=== PATIENT | female | born 1950 | race Caucasian/White ===

== ENCOUNTER 2017-07-08 09:52 | Emergency (ER) | payer MEDICARE, BC ==
[2017-07-08] MEDS ORDERED: Ondansetron HCl/PF 4 MG/2 ML Vial ONE (10:16)
[2017-07-08] MEDS ORDERED: Morphine 4 MG/ML VIAL ONE ×2 (10:35→12:27)
[2017-07-08 10:41] LABS: #Lymphocytes 2.2 thou/uL (1.20-3.40); #Neutrophils 11.4 thou/uL (1.40-6.50); %Basophils 0.2 % (0.0-1.0); %Eosinophils 0.2 % (0.0-10.0); %Lymphocytes 14.9 % (21.0-51.0); %Monocytes 6.7 % (0.0-10.0); Hematocrit 41.7 % (36.0-47.0); Mean Platelet Volume 7.4 fL (7.4-10.4); Red Blood Cell (RBC) Count 4.87 mill/uL (4.20-5.40); White Blood Cell (WBC) Count 14.7 thou/uL (4.8-10.8)
[2017-07-08 10:55] LABS: ALT (SGPT) 11 U/L (8-55); AST (SGOT) 13 U/L (5-34); Alkaline Phosphatase 140 U/L (40-150); Anion Gap 12 mmol/L (10-20); BUN (Urea Nitrogen) 19 mg/dL (9.8-20.1); Bilirubin, Total 0.6 mg/dL (0.2-1.2); Calc. Creatinine Clearance 0 mL/min (70-130); Calcium 8.4 mg/dL (7.8-10.44); Carbon Dioxide 19 mmol/L (23-31); Chloride 115 mmol/L (98-107); Estimated GFR-MDRD 40; Globulin 2.9 g/dL (2.4-3.5); Protein, Total 5.8 g/dL (6.0-8.3)
[2017-07-08] MEDS ORDERED: Ketorolac Tromethamine 30 MG/ML VIAL ONE (11:09)
[2017-07-08 11:58] LABS: Bilirubin Negative (Negative); Blood, Urine Small (Negative); Glucose, Urine (Dipstick) Negative (Negative); Ketone, Urine Trace mg/dL (Negative); Nitrite Positive (Negative); Protein, Urine (Dipstick) 30 mg/dL (Neg-Trace); Urobilinogen 0.2 mg/dL (0.2-1.0)
[2017-07-08 12:01] LABS: Bacteria/HPF 4+ HPF (None Seen); Squamous Epithelial None Seen HPF (0-3)
[2017-07-08 12:11] LABS: Hyaline Casts/LPF 4-6 HYALINE CAST LPF (0-3 Hyaline)
--- NOTE | 2017-07-08 12:41 | CT ---
CT ABDOMEN WITH CONTRAST CT PELVIS WITH CONTRAST: DATE: 07/08/17. HISTORY: A 67-year-old female with nausea, emesis, and generalized abdominal pain. COMPARISON: Noncontrast CT of 05/22/15. TECHNIQUE: IV injection of iodinated contrast media: administered. Oral contrast media: not administered. FINDINGS: Again demonstrated are the several moderate-sized calculi in the bilateral renal pelves: 2 calculi in the left renal pelvis, with the larger one approximately 11 mm in greatest dimension, approximately 4 or 5 in the contralateral right renal pelvis, with the largest one approximately 10 mm. There are several other smaller calculi in right renal mid and lower pole calyces, on the order of 4-5 mm in si ze each. Single tiny 2 mm calculus in the left renal upper pole. The kidneys have decreased in volu me since the previous CT, especially the right kidney. No hydronephrosis. A small amount of free fl uid around the liver, new since the previous CT. Cholecystectomy clips. No focal hepatic mass lesio n. No hydronephrosis. No splenomegaly. No gross pathology of pancreas, adrenals, or abdominal aort a. No free fluid or free air within the abdominal cavity or pelvic cavity. No signs of acute coloni c diverticulitis. No small bowel dilation. Unremarkable urinary bladder. Small amount of free flui d in the right paracolic gutter. There is a retrocecal appendix without definite evidence of acute a ppendicitis. No pleural effusion or consolidation at the lung bases. No ascites or pneumoperitoneum . There are suture lines around the proximal stomach. IMPRESSION: 1. Significant bilateral nephrolithiasis, with moderate-sized calculi in the bilateral renal pelves, and some in the calyces, currently without obstructive uropathy (no hydronephrosis). 2. Interval atrophy of the right kidney since the previous CT of 2014. 3. A small amount of ascites around the liver. 4. Previous bariatric surgery. 5. No evidence of small bowel obstruction. VICTOR MANUEL Guillen POS: [facility]
[2017-07-08] MEDS ORDERED: Iopamidol 370 76% 100 ML VIAL ONE (13:36)
[2017-07-08] MEDS ORDERED: hydrALAZINE 20 MG/ML VIAL ONE (14:37)
--- NOTE | 2017-08-04 13:26 | EKG ---
Test Reason : TACHY Blood Pressure : / mmHG Vent. Rate : 154 BPM Atrial Rate : 308 BPM P-R Int : 000 ms QRS Dur : 086 ms QT Int : 290 ms P-R-T Axes : 015 022 184 degrees QTc Int : 464 ms Atrial flutter with 2:1 A-V conduction Abnormal ECG Confirmed by RIA VELA ([id number]), editor & co founder MÓNICA JORDAN ([id number]) on 08/04/2017 1:26:06 PM Referred By: DONNY Confirmed By:RIA VELA
== END 2017-07-08 14:52 | disposition home or self-care (01) ==
LOC: ERS 09:52
DX: E86.0 Dehydration (principal); N39.0 Urinary tract infection, site not specified; I48.91 Unspecified atrial fibrillation; I50.9 Heart failure, unspecified; F32.9 Major depressive disorder, single episode, unspecified; M81.0 Age-related osteoporosis without current pathological fracture; Z79.899 Other long term (current) drug therapy; Z79.891 Long term (current) use of opiate analgesic
CPT/HCPCS: 36415; 51701; 74177; 80053; 81003; 81015; 85025; 87077; 87086; 87186; 93005; 96361; 96365; 96366; 96375; 96376; A4353; J0360; J1885; J1956; J2270; J2405

== ENCOUNTER 2017-11-01 11:22 | Emergency (ER) | payer MEDICARE, BC ==
[2017-11-01 12:56] LABS: #Eosinphils 0.2 thou/uL (0.0-0.7); #Lymphocytes 1.4 thou/uL (1.20-3.40); #Monocytes 0.7 thou/uL (0.11-0.59); #Neutrophils 11.5 thou/uL (1.40-6.50); %Eosinophils 1.3 % (0.0-10.0); %Lymphocytes 10.1 % (21.0-51.0); %Monocytes 5.3 % (0.0-10.0); %Neutrophils 83.3 % (42.0-75.0); Hemoglobin 10.9 g/dL (12.0-16.0); Mean Corpuscular HGB CONC 31.1 g/dL (32.0-36.0); Mean Corpuscular Hemoglobin 26.3 pg (27.0-31.0); Mean Corpuscular Volume 84.4 fl (81.0-99.0); Mean Platelet Volume 7.3 fL (7.4-10.4); Platelet Count 300 thou/uL (130-400); RBC Distribution Width 15.4 % (11.5-14.5); Red Blood Cell (RBC) Count 4.14 mill/uL (4.20-5.40); White Blood Cell (WBC) Count 13.8 thou/uL (4.8-10.8)
[2017-11-01 13:08] LABS: ALT (SGPT) 11 U/L (8-55); AST (SGOT) 14 U/L (5-34); Albumin 3.3 g/dL (3.4-4.8); Alkaline Phosphatase 106 U/L (40-150); Anion Gap 12 mmol/L (10-20); BUN (Urea Nitrogen) 15 mg/dL (9.8-20.1); Bilirubin, Total 0.5 mg/dL (0.2-1.2); Calc. Creatinine Clearance 0 mL/min (70-130); Calcium 8.6 mg/dL (7.8-10.44); Carbon Dioxide 19 mmol/L (23-31); Chloride 112 mmol/L (98-107); Estimated GFR-MDRD 49; Globulin 2.8 g/dL (2.4-3.5); Glucose 102 mg/dL (80-115); Potassium 4.4 mmol/L (3.5-5.1); Protein, Total 6.1 g/dL (6.0-8.3); Sodium 139 mmol/L (136-145)
[2017-11-01 16:50] LABS: Bilirubin Negative (Negative); Blood, Urine Negative (Negative); Clarity CLEAR (Clear); Glucose, Urine (Dipstick) Negative (Negative); Leukocyte Small (Negative); Nitrite Negative (Negative); Protein, Urine (Dipstick) Trace mg/dL (Neg-Trace); Specific Gravity, Urine 1.025 (1.002-1.036); pH, Urine 5.5 (5.0-9.0)
[2017-11-01 16:55] LABS: Bacteria/HPF None Seen HPF (None Seen); Hyaline Casts/LPF 0-3 HYALINE CAST LPF (0-3 Hyaline); Pathc Cast-AUWi Flag 0.58 (0-2.49); Squamous Epithelial 0-3 HPF (0-3)
[2017-11-01 17:45] LABS: CKMB 1.1 ng/mL (0-6.6); Troponin I Less than 0.010 ng/mL (< 0.028)
--- NOTE | 2017-11-01 17:58 | RAD ---
SINGLE VIEW OF THE CHEST: 11/01/17 COMPARISON: 03/21/17 HISTORY: Difficulty walking with weakness for two days and confusion. FINDINGS: Single view of the chest shows an enlarged but stable cardiomediastinal silhouette. Increased interst itial markings are present. There is no evidence of consolidation, mass or pleural effusion. IMPRESSION: Cardiomegaly without evidence of acute cardiopulmonary disease. POS: [facility]
--- NOTE | 2017-11-01 18:06 | CT ---
CT OF THE BRAIN WITHOUT CONTRAST: 11/01/17 COMPARISON: 07/04/15 HISTORY: Slurred speech and generalized weakness that began last weekend. TECHNIQUE: Multiple contiguous axial images were obtained in a CT of the brain without contrast. FINDINGS: This exam is slightly limited secondary to motion artifact. There are a few scattered hypodensities i n the subcortical and periventricular white matter, likely secondary to small vessel ischemic disease . No large confluent infarction is seen. There is no evidence of hydrocephalus, intracranial hemorrha ge, or extra-axial fluid collection. The calvarium and overlying soft tissues are unremarkable. The visualized paranasal sinuses and masto id air cells are well aerated. IMPRESSION: Small vessel ischemic disease without acute intracranial abnormality. POS: [facility]
[2017-11-01] MEDS ORDERED: Acetaminophen 500 MG TAB ONE (19:52)
[2017-11-01] MEDS ORDERED: Morphine 4 MG/ML VIAL ONE (19:52)
== END 2017-11-01 19:56 | disposition home or self-care (01) ==
LOC: ERS 11:22
DX: N39.0 Urinary tract infection, site not specified (principal); I50.9 Heart failure, unspecified; I48.91 Unspecified atrial fibrillation; M32.9 Systemic lupus erythematosus, unspecified; M19.90 Unspecified osteoarthritis, unspecified site; F32.9 Major depressive disorder, single episode, unspecified; Z87.442 Personal history of urinary calculi; Z79.899 Other long term (current) drug therapy
CPT/HCPCS: 36415; 70450; 71045; 80053; 81003; 81015; 82553; 84484; 85025; 93005; 96365; J0744; J2270

== ENCOUNTER 2017-11-04 10:39 | Emergency (ER) | payer MEDICARE, BC ==
[2017-11-04 11:17] LABS: #Eosinphils 0.2 thou/uL (0.0-0.7); #Lymphocytes 1.3 thou/uL (1.20-3.40); #Monocytes 0.5 thou/uL (0.11-0.59); #Neutrophils 7.1 thou/uL (1.40-6.50); %Basophils 0.2 % (0.0-1.0); %Eosinophils 1.7 % (0.0-10.0); %Lymphocytes 14.5 % (21.0-51.0); %Monocytes 5.4 % (0.0-10.0); %Neutrophils 78.2 % (42.0-75.0); Hemoglobin 10.6 g/dL (12.0-16.0); Mean Corpuscular HGB CONC 30.6 g/dL (32.0-36.0); Mean Corpuscular Hemoglobin 26.6 pg (27.0-31.0); Mean Corpuscular Volume 86.9 fl (81.0-99.0); Mean Platelet Volume 7.5 fL (7.4-10.4); Platelet Count 310 thou/uL (130-400); RBC Distribution Width 15.5 % (11.5-14.5); Red Blood Cell (RBC) Count 3.99 mill/uL (4.20-5.40); White Blood Cell (WBC) Count 9.1 thou/uL (4.8-10.8)
[2017-11-04 11:33] LABS: ALT (SGPT) 8 U/L (8-55); AST (SGOT) 11 U/L (5-34); Albumin 3.2 g/dL (3.4-4.8); Alkaline Phosphatase 91 U/L (40-150); Anion Gap 12 mmol/L (10-20); BUN (Urea Nitrogen) 14 mg/dL (9.8-20.1); Bilirubin, Total 0.3 mg/dL (0.2-1.2); CK (CPK) 19 U/L (29-168); Calc. Creatinine Clearance 0 mL/min (70-130); Calcium 8.4 mg/dL (7.8-10.44); Carbon Dioxide 18 mmol/L (23-31); Chloride 116 mmol/L (98-107); Estimated GFR-MDRD 50; Globulin 2.6 g/dL (2.4-3.5); Glucose 115 mg/dL (80-115); Potassium 4.5 mmol/L (3.5-5.1); Protein, Total 5.8 g/dL (6.0-8.3); Sodium 141 mmol/L (136-145)
[2017-11-04 12:25] LABS: Bilirubin Negative (Negative); Blood, Urine Negative (Negative); Clarity CLEAR (Clear); Glucose, Urine (Dipstick) Negative (Negative); Leukocyte Moderate (Negative); Nitrite Negative (Negative); Protein, Urine (Dipstick) Negative (Neg-Trace); Specific Gravity, Urine 1.016 (1.002-1.036); Urobilinogen 0.2 mg/dL (0.2-1.0); pH, Urine 5.5 (5.0-9.0)
[2017-11-04 12:28] LABS: CKMB 1.2 ng/mL (0-6.6); Troponin I Less than 0.010 ng/mL (< 0.028)
[2017-11-04 12:28] LABS: Bacteria/HPF Rare-Few HPF (None Seen); Hyaline Casts/LPF 0-3 HYALINE CAST LPF (0-3 Hyaline); Pathc Cast-AUWi Flag 0.29 (0-2.49); RBC/HPF 0-3 HPF (0-3); Squamous Epithelial 0-3 HPF (0-3)
--- NOTE | 2017-11-04 14:39 | RAD ---
FRONTAL VIEW CHEST: COMPARISON: 11/01/17. INDICATION: Weakness. FINDINGS: Enlarged cardiac silhouette and prominent pulmonary vasculature is seen. There is no obvious effusio n, lobar consolidation, or pneumothorax. The chest is otherwise similar. IMPRESSION: Findings most consistent with decompensated congestive heart failure. Recommend clinical correlation as well as imaging followup to confirm resolution. POS: [facility]
[2017-11-04] MEDS ORDERED: HYDROcodone/Acetaminophen 10/325 mg Tablet ONE (14:53)
== END 2017-11-04 15:00 | disposition home or self-care (01) ==
LOC: ERS 10:39
DX: N39.0 Urinary tract infection, site not specified (principal); I48.91 Unspecified atrial fibrillation; I50.9 Heart failure, unspecified; F41.9 Anxiety disorder, unspecified; Z79.899 Other long term (current) drug therapy
CPT/HCPCS: 36415; 71045; 80053; 81003; 81015; 82550; 82553; 83605; 83880; 84484; 85025; 87077; 87086; 87186; 93005; 94760

== ENCOUNTER 2018-03-21 15:45 | Outpatient (CLI) | payer MEDICARE, BC | END 2018-03-21 15:46 | disposition home or self-care (01) | LOC: BICRAD 15:45 | PROVIDERS: ATTEND Internal Medicine Rheumatology | DX: M25.551 Pain in right hip (principal); M25.552 Pain in left hip | CPT/HCPCS: 72170 ==

== ENCOUNTER 2018-12-08 08:22 | Emergency (ER) | payer MEDICARE, BC ==
[2018-12-08 09:32] LABS: #Eosinphils 0.1 thou/uL (0.0-0.7); #Lymphocytes 2.7 thou/uL (1.20-3.40); #Monocytes 0.8 thou/uL (0.11-0.59); #Neutrophils 6.5 thou/uL (1.40-6.50); %Basophils 0.1 % (0.0-1.0); %Eosinophils 1.2 % (0.0-10.0); %Lymphocytes 27.1 % (21.0-51.0); %Monocytes 7.4 % (0.0-10.0); %Neutrophils 64.2 % (42.0-75.0); Hemoglobin 12.4 g/dL (12.0-16.0); Mean Corpuscular HGB CONC 31.3 g/dL (32.0-36.0); Mean Corpuscular Hemoglobin 25.7 pg (27.0-31.0); Mean Platelet Volume 7.9 fL (7.4-10.4); Platelet Count 239 thou/uL (130-400); Red Blood Cell (RBC) Count 4.81 mill/uL (4.20-5.40); White Blood Cell (WBC) Count 10.1 thou/uL (4.8-10.8)
--- NOTE | 2018-12-08 09:53 | RAD ---
EXAM: Portable chest PROVIDED CLINICAL HISTORY: Cough COMPARISON: 11/06/2016 FINDINGS: Cardiac and mediastinal silhouette is within normal limits. No focal consolidation, pleural fluid or pneumothorax evident. Vascular calcification involves the aortic arch. Postoperative changes of reverse left shoulder arthroplasty. IMPRESSION: No evidence for an acute cardiopulmonary process.
[2018-12-08 10:02] LABS: ALT (SGPT) 10 U/L (8-55); AST (SGOT) 17 U/L (5-34); Albumin 3.6 g/dL (3.4-4.8); Alkaline Phosphatase 73 U/L (40-150); Anion Gap 14 mmol/L (10-20); BUN (Urea Nitrogen) 17 mg/dL (9.8-20.1); Bilirubin, Total 0.2 mg/dL (0.2-1.2); Calc. Creatinine Clearance 0 mL/min (70-130); Calcium 8.6 mg/dL (7.8-10.44); Carbon Dioxide 19 mmol/L (23-31); Chloride 113 mmol/L (98-107); Estimated GFR-MDRD 41; Globulin 2.3 g/dL (2.4-3.5); Glucose 85 mg/dL (80-115); Lipase 32 U/L (8-78); Potassium 4.2 mmol/L (3.5-5.1); Protein, Total 5.9 g/dL (6.0-8.3); Sodium 142 mmol/L (136-145)
[2018-12-08 11:48] LABS: Bilirubin Negative (Negative); Blood, Urine Negative (Negative); Clarity CLOUDY (Clear); Glucose, Urine (Dipstick) Negative (Negative); Leukocyte Moderate (Negative); Protein, Urine (Dipstick) 30 mg/dL (Neg-Trace); pH, Urine 5.5 (5.0-9.0)
[2018-12-08 11:51] LABS: Bacteria/HPF 2+ HPF (None Seen); Hyaline Casts/LPF 4-6 HYALINE CAST LPF (0-3 Hyaline); Pathc Cast-AUWi Flag 0.68 (0-2.49); Squamous Epithelial 0-3 HPF (0-3)
[2018-12-08 12:07] LABS: Nitrite Unable to Interpret (Negative)
[2018-12-08 12:08] LABS: RBC/HPF 0-3 HPF (0-3)
== END 2018-12-08 12:48 | disposition home or self-care (01) ==
LOC: ERS 08:22
DX: N18.9 Chronic kidney disease, unspecified (principal); N39.0 Urinary tract infection, site not specified; I48.91 Unspecified atrial fibrillation; M19.90 Unspecified osteoarthritis, unspecified site; F41.9 Anxiety disorder, unspecified; F32.9 Major depressive disorder, single episode, unspecified; Z87.442 Personal history of urinary calculi; Z79.891 Long term (current) use of opiate analgesic; Z79.899 Other long term (current) drug therapy
CPT/HCPCS: 36415; 71046; 80053; 81003; 81015; 83690; 84484; 85025; 87077; 87086; 87186; 93005

== ENCOUNTER 2018-12-24 07:57 | Emergency (ER) | payer BC, MEDICARE ==
[2018-12-24 08:57] LABS: Hemoglobin 10.6 g/dL (12.0-16.0); Mean Corpuscular HGB CONC 30.4 g/dL (32.0-36.0); Mean Corpuscular Hemoglobin 25.5 pg (27.0-31.0); Mean Corpuscular Volume 84.1 fL (78.0-98.0); Mean Platelet Volume 8.6 fL (7.4-10.4); Platelet Count 224 thou/uL (130-400); RBC Distribution Width 17.2 % (11.5-14.5); Red Blood Cell (RBC) Count 4.16 mill/uL (4.20-5.40); White Blood Cell (WBC) Count 9.5 thou/uL (4.8-10.8)
--- NOTE | 2018-12-24 08:57 | RAD ---
Right knee 4 views HISTORY: Fall. Right knee injury. FINDINGS: Total knee prosthesis in place without apparent hardware lucency. Enthesophytes and osteoph ytosis of the patella. Osseous structures are demineralized. No acute fracture, dislocation, or fluid distention of the suprapatellar bursa. Soft tissue swelling at the medial aspect of the knee. IMPRESSION: Medial soft tissue swelling. Right knee prosthesis. Degenerative changes. No acute osseous abnormalities are demonstrated. Osteoporosis.
--- NOTE | 2018-12-24 09:05 | CT ---
CT Brain WO Con: 12/24/2018 8:26 AM CLINICAL HISTORY: Posttraumatic injury, pain, dizziness. COMPARISON: 04/09/2018 FINDINGS: Hemorrhage: None. Ventricular system: Normal in size and morphology for the patient's age. Cerebral parenchyma: Microvascular ischemic disease Midline shift: None. Mass: No mass effect. Calvarium: Normal. Visualized Paranasal sinuses: Clear. Small right frontal scalp lipoma. IMPRESSION: No acute intracranial abnormalities. Microvascular ischemic disease of the cerebral white matter.
[2018-12-24 09:08] LABS: ALT (SGPT) 13 U/L (8-55); AST (SGOT) 12 U/L (5-34); Alkaline Phosphatase 62 U/L (40-150); Anion Gap 11 mmol/L (10-20); BUN (Urea Nitrogen) 24 mg/dL (9.8-20.1); Bilirubin, Total 0.4 mg/dL (0.2-1.2); CK (CPK) 18 U/L (29-168); Calc. Creatinine Clearance 0 mL/min (70-130); Carbon Dioxide 22 mmol/L (23-31); Chloride 112 mmol/L (98-107); Estimated GFR-MDRD 53; Globulin 1.9 g/dL (2.4-3.5); Glucose 89 mg/dL (80-115); Potassium 4.2 mmol/L (3.5-5.1); Protein, Total 4.9 g/dL (6.0-8.3); Sodium 141 mmol/L (136-145)
[2018-12-24] MEDS ORDERED: Meclizine HCl 25 MG TAB ONE (09:09)
[2018-12-24 09:17] LABS: Anisocytosis SLIGHT = 6-15 cells (100X) (0-5/hpf); Eosinophils 1 % (0-10); Hypochromia SLIGHT = 6-15 cells (100X) (0-5/hpf); Lymphocytes 4 % (21-51); MDiff Complete? YES; Monocytes 2 % (0-10); Neutrophil 93 % (42-75); Platelet Morphology Comment Appears Adequate
--- NOTE | 2018-12-24 09:45 | RAD ---
CHEST 1 VIEW PORTABLE: HISTORY: Injury following a trip and fall with dizziness. COMPARISON: 12/08/2018. FINDINGS: Left total shoulder reverse arthroplasty. Minimal cardiomegaly. Mild increased linear and interstit ial markings bilaterally in the perihilar region but stable. No confluent pneumonia, overt edema, or pleural effusion. IMPRESSION: No acute intrathoracic disease. No pneumothorax or pleural effusion or other acute process. Stable exam. POS: [facility]
--- NOTE | 2018-12-24 09:46 | RAD ---
LEFT KNEE 4 VIEWS: HISTORY: Injury following trauma, fall. FINDINGS: Tricompartment arthrosis and degenerative changes. Bone demineralization. No acute fracture or disl ocation. IMPRESSION: Bone demineralization. Tricompartment arthrosis and degenerative changes without acute fracture or d islocation. POS: [facility]
[2018-12-24] MEDS ORDERED: Lorazepam 1 MG TAB ONE (10:43)
== END 2018-12-24 12:03 | disposition home or self-care (01) ==
LOC: ERS 07:57
DX: S06.0X0A Concussion without loss of consciousness, initial encounter (principal); S80.01XA Contusion of right knee, initial encounter; S80.02XA Contusion of left knee, initial encounter; S51.012A Laceration without foreign body of left elbow, initial encounter; H81.399 Other peripheral vertigo, unspecified ear; I48.91 Unspecified atrial fibrillation; F32.9 Major depressive disorder, single episode, unspecified; F41.9 Anxiety disorder, unspecified; Z79.899 Other long term (current) drug therapy; W01.0XXA Fall on same level from slipping, tripping and stumbling without subsequent striking against object, initial encounter
CPT/HCPCS: 70450; 71045; 80053; 82550; 83880; 84484; 85025; 93005; J8499

== ENCOUNTER 2019-02-25 13:03 | Inpatient (IN) | payer MEDICARE, BC ==
[2019-02-25] MEDS ORDERED: Naloxone HCl 2 mg/2 ml Syringe ONE (13:49)
[2019-02-25 14:08] LABS: #Eosinphils 0.1 thou/uL (0.0-0.7); #Lymphocytes 0.9 thou/uL (1.20-3.40); #Monocytes 0.5 thou/uL (0.11-0.59); #Neutrophils 10.2 thou/uL (1.40-6.50); %Eosinophils 0.6 % (0.0-10.0); %Lymphocytes 7.6 % (21.0-51.0); %Monocytes 4.4 % (0.0-10.0); %Neutrophils 87.4 % (42.0-75.0); Hemoglobin 13.2 g/dL (12.0-16.0); Mean Corpuscular HGB CONC 30.4 g/dL (32.0-36.0); Mean Corpuscular Hemoglobin 25.6 pg (27.0-31.0); Mean Corpuscular Volume 84.2 fL (78.0-98.0); Mean Platelet Volume 9.4 fL (7.4-10.4); Platelet Count 160 thou/uL (130-400); RBC Distribution Width 16.2 % (11.5-14.5); Red Blood Cell (RBC) Count 5.18 mill/uL (4.20-5.40); White Blood Cell (WBC) Count 11.7 thou/uL (4.8-10.8)
[2019-02-25 14:24] LABS: Acetaminophen Less than 6.0 mcg/mL (10.0-30.0); Alcohol Less than 10 mg/dL (Less than 10); Salicylate Less than 8.0 mg/dL (15.0-30.0)
[2019-02-25 14:26] LABS: ALT (SGPT) 14 U/L (8-55); AST (SGOT) 23 U/L (5-34); Albumin 3.3 g/dL (3.4-4.8); Alkaline Phosphatase 116 U/L (40-150); Anion Gap 19 mmol/L (10-20); BUN (Urea Nitrogen) 43 mg/dL (9.8-20.1); Bilirubin, Total 0.9 mg/dL (0.2-1.2); CK (CPK) 43 U/L (29-168); Calc. Creatinine Clearance 0 mL/min (70-130); Calcium 8.6 mg/dL (7.8-10.44); Carbon Dioxide 19 mmol/L (23-31); Chloride 107 mmol/L (98-107); Estimated GFR-MDRD 26; Globulin 2.7 g/dL (2.4-3.5); Glucose 86 mg/dL (80-115); Lipase 9 U/L (8-78); Potassium 4.9 mmol/L (3.5-5.1); Sodium 140 mmol/L (136-145)
[2019-02-25 14:31] LABS: Bilirubin Negative (Negative); Blood, Urine Trace (Negative); Glucose, Urine (Dipstick) Negative (Negative); Leukocyte Moderate (Negative); Nitrite Negative (Negative); Protein, Urine (Dipstick) Negative (Neg-Trace); Urobilinogen 0.2 mg/dL (Less than 2)
[2019-02-25 14:32] LABS: Clarity Clear (Clear)
[2019-02-25 14:38] LABS: Bacteria/HPF 2+ HPF (None Seen); RBC/HPF 0-3 HPF (0-3); WBC/HPF 21-50 HPF (0-3)
[2019-02-25 14:40] LABS: Amphetamine Not Detected (NotDetected); Barbiturates Screen Not Detected (NotDetected); Benzodiazepine Screen Detected (NotDetected); Cocaine Metabolite Screen Not Detected (NotDetected); Medtox Reader # READER 1; Methadone Not Detected (NotDetected); Methamphetamine Not Detected (NotDetected); Opiate Screen Detected (NotDetected); Oxycodone Screen Not Detected (NotDetected); Phencyclidine (PCP) Not Detected (NotDetected); THC/Cannabinoid Screen Not Detected (NotDetected); Tricyclic Screen Not Detected (NotDetected)
[2019-02-25 14:41] LABS: Medtox Control Line Valid? VALID (VALID)
[2019-02-25] MEDS ORDERED: Acetaminophen 325 MG TAB PO PRN (16:05)
[2019-02-25] MEDS ORDERED: Vancomycin HCl 1 GM in Sodium Chloride 0.9% 250 ML 300 ML IVPB SCH ×2 (16:05→19:15)
[2019-02-25] MEDS ORDERED: Guaifenesin DM 100-10/5 ML UDCUP PO PRN ×2 (16:05→20:39)
[2019-02-25] MEDS ORDERED: Ondansetron PF 4 MG/2 ML Vial IVP PRN ×2 (16:05→20:39)
[2019-02-25] MEDS ORDERED: Bisacodyl 10 MG SUPP PR PRN ×2 (16:05→20:38)
[2019-02-25] MEDS ORDERED: Sodium Chloride 0.9% 1,000 ML IV SCH (16:05)
[2019-02-25] MEDS ORDERED: Levofloxacin 500 mg/D5W 100 ml Premix Bag ONE (16:35)
[2019-02-25] MEDS ORDERED: MEROPENEM 1 GM/50 ML 1 GM in Premix Bag 1 BAG IVPB SCH (17:00)
[2019-02-25] MEDS ORDERED: Carvedilol 6.25 MG TAB PO SCH ×2 (17:00→20:45)
--- NOTE | 2019-02-25 19:36 | HP ---
REASON FOR ADMISSION: UTI, acute encephalopathy, acute kidney injury. HISTORY OF PRESENTING ILLNESS: Please note, majority of this history is obtained by talking to the patient's , who is here at bedside. The patient is lethargic, but is coming around slowly. Per , the patient tried to get up to go to restroom early this morning. She could not get up, and the had to literally lift her up to take her to restroom. Soon after finishing, the patient had to be brought back by her , in essence carry her back to bed. After an hour or so, the patient tried to stand up and was taking very short-stepping gait, literally moving inches per . She was trying to fall over. She was not herself. She was talking, but not making any sense. All of this concerned her and he put her in the car and brought her to the emergency room. There is no complaints of fever at home, but on arrival had 103 degrees Fahrenheit fever. No complaints of cough or expectoration. No chest pain or palpitation at present. 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 PERSONAL HISTORY: Does not abuse alcohol or drugs. No history of smoking. FAMILY HISTORY: Mother is living and is 89 years. Father of brain cancer in his 60s. ALLERGIES: THE PATIENT IS ALLERGIC TO ANA MARIA INHIBITORS, PENICILLIN, CEPHALOSPORIN, CHOCOLATE FLAVOR, BENADRYL, MIDAZOLAM, AND SULFA. CURRENT MEDICATIONS: The patient is on 1. Lasix 40 mg every two days. 2. Zyprexa 5 mg p.o. q.p.m. 3. Aspirin 81 mg p.o. daily. 4. Coreg 12.5 mg p.o. twice daily. 5. Digoxin 0.125 mg p.o. daily. 6. Hydralazine 10 mg p.o. three times daily. 7. Levothyroxine 150 mcg p.o. daily. CODE STATUS: Full. POWER OF CLINICAL THERAPIST: Her . REVIEW OF SYSTEMS: Cannot be obtained as the patient is lethargic. PHYSICAL EXAMINATION: GENERAL: The patient is a 68-year-old female, who is currently not in any acute distress, but is very lethargic. VITAL SIGNS: Blood pressure 118/54, pulse 76 per minute, respiratory rate 18 per minute, temperature 103 degrees Fahrenheit, saturating 94% on room air. NECK: Supple. No elevated JVD. HEENT: Eyes; extraocular muscles intact. Pupils reacting to light. Oral cavity, mucous membranes are dry. No exudates or congestion. CARDIOVASCULAR SYSTEM: S1 and S2 heard. Regular rhythm. RESPIRATORY SYSTEM: Air entry 1+ bilateral. No rales or rhonchi. ABDOMEN: Soft. Bowel sounds heard. There is mild tenderness in the suprapubic area. No rigidity or guarding. EXTREMITIES: No peripheral edema, although the left lower extremity appears slightly bigger than right. Peripheral pulses 1+ bilateral. No ischemic ulcerations or gangrene. CENTRAL NERVOUS SYSTEM: The patient has chronic left upper extremity plegia and left lower extremity strength of 3/5 to 4/5. Right upper and lower extremity has normal strength and freely moves it. No other gross new deficits seen. PSYCHIATRIC SYSTEM: Cannot be accurately assessed as the patient is very lethargic at present. LABORATORY DATA: EKG done shows sinus rhythm with first-degree AV block and poor R-wave progression. There is T inversion seen in lead I and aVL. White count of 11, H and H 13 and 43, platelet count 160, MCV is 84 with 87% neutrophils. Serum bicarb is 19, BUN 43, creatinine 1.93, serum glucose 86, lactic acid 0.8. Liver enzymes within normal limits. Troponin x1 is negative. Ammonia is 20. Albumin is 3.3. Lipase is 9. UA shows moderate leuk esterase. 21 to 50 wbc's, and 2+ bacteria. Urine drug screen is positive for benzodiazepines and opiates. CLINICAL IMPRESSION AND PLAN: The patient will be admitted to medical floor for sepsis with urinary tract infection, acute encephalopathy, acute kidney injury, metabolic acidosis. She will be given at least 2 L of IV fluid in the ER and will continue with normal saline at 100 mL/h. The blood and urine cultures will be obtained. She will be placed on vancomycin and Levaquin. She usually gets around two urinary tract infections a year. Most of her urinary tract infections have been due to E coli and Klebsiella, which have been pansensitive in the past, which has been mostly sensitive to all antibiotics in the past. We will continue her aspirin, Coreg, digoxin, Synthroid, and Zyprexa as before. The patient's code status was discussed with the patient and , and she is a full code at present. Power of patent prosecution attorney is her . We will continue to closely monitor her on medical floor. Job ID: [id number]
[2019-02-25] MEDS ORDERED: Senokot S 8.6-50 MG TAB PO SCH (21:00)
[2019-02-25 21:24] VITALS: BMI 27.1
[2019-02-25] MEDS: Sodium Chloride 0.9% 1,000 ML IV SCH (21:31)
[2019-02-25] MEDS: OLANZapine 5 MG TAB PO SCH (21:36)
[2019-02-25] MEDS: Acetaminophen 325 MG TAB PO PRN (21:36)
[2019-02-25] MEDS: Senokot S 8.6-50 MG TAB PO SCH (21:37)
[2019-02-26] MEDS: Sodium Chloride 0.9% 1,000 ML IV SCH ×2 (05:22→14:18)
[2019-02-26] MEDS: Levothyroxine 150 MCG TAB PO SCH (05:22)
[2019-02-26] MEDS ORDERED: Levothyroxine 150 MCG TAB PO SCH (06:00)
[2019-02-26] MEDS: Famotidine 20 MG TAB PO SCH (08:33)
[2019-02-26] MEDS: Senokot S 8.6-50 MG TAB PO SCH ×2 (08:33→20:52)
[2019-02-26] MEDS: Aspirin Chewable 81 MG TAB PO SCH (08:34)
[2019-02-26] MEDS: Digoxin 0.125 MG TAB PO SCH (08:34)
[2019-02-26] MEDS: Enoxaparin Sodium 30 MG/0.3 ML SYRINGE SC SCH (08:34)
[2019-02-26] MEDS ORDERED: Enoxaparin Sodium 30 MG/0.3 ML SYRINGE SC SCH (09:00)
[2019-02-26] MEDS ORDERED: Aspirin Chewable 81 MG TAB PO SCH (09:00)
[2019-02-26] MEDS ORDERED: Famotidine 20 MG TAB PO SCH (09:00)
[2019-02-26] MEDS ORDERED: Digoxin 0.125 MG TAB PO SCH (09:00)
[2019-02-26] MEDS: Acetaminophen/Codeine 30-300mg Tablet PO PRN ×2 (12:00→17:18)
--- NOTE | 2019-02-26 13:47 | PDOC.HOSPP ---
- Subjective Subjective: awake, no sob or nausea follows verbal stimuli, ate her breakfast - Objective Vital Signs & Weight: Vital Signs (12 hours) Temp Pulse Resp BP Pulse Ox 02/26/19 12:00 98.8 F 76 18 131/83 95 02/26/19 08:00 98.4 F 80 16 112/70 95 Weight Weight 167 lb 12.8 oz I&O: 02/25/19 02/26/19 02/27/19 06:59 06:59 06:59 Intake Total 985 Output Total 800 Balance 185 Result Diagrams: 02/25/19 13:32 02/25/19 13:27 ROS - Review of Systems All systems: All other ROS were reviewed and found negative. - Medication Medications: Active Medications Generic Name Dose Route Start Last Admin Trade Name Freq PRN Reason Stop Dose Admin Acetaminophen 650 mg 02/25/19 20:37 02/25/19 21:36 Tylenol PO 650 mg Q4H PRN Administration Headache/Fever/Mild Pain (1-3) Acetaminophen/Codeine Phosphate 2 tab 02/26/19 11:18 02/26/19 12:00 Tylenol #3 PO 2 tab Q6H PRN Administration PAIN (4-10) Aspirin 81 mg 02/26/19 09:00 02/26/19 08:34 Aspirin Chewable PO 81 mg DAILY CAYLA Administration Digoxin 0.125 mg 02/26/19 09:00 02/26/19 08:34 Lanoxin PO 0.125 mg DAILY CAYLA Administration Enoxaparin Sodium 30 mg 02/26/19 09:00 02/26/19 08:34 Lovenox SC 30 mg 0900 CAYLA Administration Famotidine 20 mg 02/26/19 09:00 02/26/19 08:33 Pepcid PO 20 mg DAILY CAYLA Administration Levofloxacin 250 mg/ Device 50 mls @ 100 mls/hr 02/25/19 18:00 02/25/19 21:31 IVPB 50 mls Q24HR CAYLA Administration Sodium Chloride 1,000 mls @ 100 mls/hr 02/25/19 21:00 02/26/19 05:22 Normal Saline 0.9% IV 02/26/19 17:00 1,000 mls .Q10H CAYLA Administration Levothyroxine Sodium 150 mcg 02/26/19 06:00 02/26/19 05:22 Synthroid PO 150 mcg 0600 CAYLA Administration Olanzapine 5 mg 02/25/19 21:00 02/25/19 21:36 Zyprexa PO 5 mg QPM CAYLA Administration Senna/Docusate Sodium 2 tab 02/25/19 21:00 02/26/19 08:33 Senokot S PO 2 tab BID CAYLA Administration - Exam awake alert Eye: PERRL, anicteric sclera ENT: normocephalic atraumatic, moist mucosa Neck: supple, no JVD Heart: RRR, no murmur Respiratory: no wheezes, no rales Gastrointestinal: soft, non-tender, normal bowel sounds Extremities: no cyanosis, no edema Skin: no lesions, no rashes Neurological: CN's grossly intact, no focal deficits Musculoskeletal: normal tone, generalized weakness Psychiatric: normal affect, A&O x 3 Hosp A/P (1) UTI (urinary tract infection) Status: Acute Qualifiers: Urinary tract infection type: acute cystitis Hematuria presence: without hematuria Qualified Code(s): N30.00 - Acute cystitis without hematuria (2) Sepsis Code(s): A41.9 - SEPSIS, UNSPECIFIED ORGANISM Status: Acute Qualifiers: Sepsis type: sepsis due to unspecified organism Qualified Code(s): A41.9 - Sepsis, unspecified organism (3) RONNI (acute kidney injury) Code(s): N17.9 - ACUTE KIDNEY FAILURE, UNSPECIFIED Status: Acute (4) Encephalopathy acute Code(s): G93.40 - ENCEPHALOPATHY, UNSPECIFIED Status: Acute (5) Anemia, normocytic normochromic Code(s): D64.9 - ANEMIA, UNSPECIFIED Status: Chronic (6) Anxiety and depression Code(s): F41.9 - ANXIETY DISORDER, UNSPECIFIED; F32.9 - MAJOR DEPRESSIVE DISORDER, SINGLE EPISODE, UNSPECIFIED Status: Chronic (7) CAD (coronary artery disease) Code(s): I25.10 - ATHSCL HEART DISEASE OF [place] CORONARY ARTERY W/O ANG PCTRS Status: Chronic Qualifiers: Coronary Disease-Associated Artery/Lesion type: [place] artery [place] vs. transplanted heart: [place] heart Associated angina: without angina Qualified Code(s): I25.10 - Atherosclerotic heart disease of [place] coronary artery without angina pectoris (8) Chronic pain disorder Code(s): G89.4 - CHRONIC PAIN SYNDROME Status: Chronic (9) Fibromyalgia Status: Chronic (10) GERD (gastroesophageal reflux disease) Code(s): K21.9 - GASTRO-ESOPHAGEAL REFLUX DISEASE WITHOUT ESOPHAGITIS Status: Chronic Qualifiers: Esophagitis presence: esophagitis presence not specified Qualified Code(s) : K21.9 - Gastro-esophageal reflux disease without esophagitis (11) Hypertension Code(s): I10 - ESSENTIAL (PRIMARY) HYPERTENSION Status: Chronic Qualifiers: (12) Hypothyroidism Code(s): E03.9 - HYPOTHYROIDISM, UNSPECIFIED Status: Chronic Qualifiers: (13) Paroxysmal atrial fibrillation Code(s): I48.0 - PAROXYSMAL ATRIAL FIBRILLATION Status: Chronic - Plan is on vanc and levaquin dc iv fluids after 2 liters, is tolerating oral diet. continue asp, coreg, digoxin, synthroid, zyprexa PT to mobilize as tolerated Blood cs prelim no growth, await urine cs. Hemostable
[2019-02-26] MEDS: Carvedilol 6.25 MG TAB PO SCH ×2 (14:11→17:19)
[2019-02-26] MEDS ORDERED: Nystatin Powder 15 GM BOT TOP PRN (16:01)
[2019-02-26] MEDS: OLANZapine 5 MG TAB PO SCH (20:51)
[2019-02-26] MEDS: traMADol HCl 50 MG TAB PO SCH (20:52)
[2019-02-26 21:16] LABS: Vancomycin, Random 19.7 ug/mL (See Comment)
[2019-02-26] MEDS ORDERED: Vancomycin HCl 1 GM in Premix Bag 1 BAG IVPB SCH (22:00)
[2019-02-26] MEDS: Vancomycin HCl 750 MG in Sodium Chloride 0.9% 250 ML 250 ML IVPB SCH (23:57)
[2019-02-27] MEDS: Levothyroxine 150 MCG TAB PO SCH (05:22)
[2019-02-27 07:01] LABS: Albumin 2.5 g/dL (3.4-4.8); Anion Gap 13 mmol/L (10-20); BUN (Urea Nitrogen) 35 mg/dL (9.8-20.1); BUN/Creatinine Ratio 25.36; Calc. Creatinine Clearance 46 mL/min (70-130); Calcium 8.1 mg/dL (7.8-10.44); Carbon Dioxide 18 mmol/L (23-31); Chloride 110 mmol/L (98-107); Estimated GFR-MDRD 38; Glucose 91 mg/dL (80-115); Phosphorus 3.2 mg/dL (2.3-4.7); Potassium 3.9 mmol/L (3.5-5.1); Sodium 137 mmol/L (136-145)
[2019-02-27 07:10] LABS: Hemoglobin 10.8 g/dL (12.0-16.0); Mean Corpuscular HGB CONC 30.6 g/dL (32.0-36.0); Mean Corpuscular Hemoglobin 25.9 pg (27.0-31.0); Mean Corpuscular Volume 84.8 fL (78.0-98.0); Mean Platelet Volume 8.3 fL (7.4-10.4); Platelet Count 162 thou/uL (130-400); Red Blood Cell (RBC) Count 4.15 mill/uL (4.20-5.40); White Blood Cell (WBC) Count 10.1 thou/uL (4.8-10.8)
[2019-02-27 08:23] LABS: Band 17 % (5-11); Hypochromia SLIGHT = 6-15 cells (100X) (0-5/hpf); Lymphocytes 12 % (21-51); MDiff Complete? YES; Monocytes 2 % (0-10); Neutrophil 69 % (42-75); Platelet Morphology Comment Appears Adequate; Polychromasia SLIGHT = 2-3 cells (100X) (0-2/hpf)
[2019-02-27] MEDS: Enoxaparin Sodium 30 MG/0.3 ML SYRINGE SC SCH (09:06)
[2019-02-27] MEDS: Digoxin 0.125 MG TAB PO SCH (09:07)
[2019-02-27] MEDS: traMADol HCl 50 MG TAB PO SCH ×2 (09:07→21:47)
[2019-02-27] MEDS: Aspirin Chewable 81 MG TAB PO SCH (09:09)
[2019-02-27] MEDS: Carvedilol 6.25 MG TAB PO SCH ×2 (09:10→17:03)
[2019-02-27] MEDS: Famotidine 20 MG TAB PO SCH (09:11)
[2019-02-27] MEDS: Senokot S 8.6-50 MG TAB PO SCH ×2 (09:11→21:47)
--- NOTE | 2019-02-27 15:06 | PQF ---
JAM GARCIA, NATALIIA GOODRICH MD [id number] CLINICAL DOCUMENTATION IMPROVEMENT CLARIFICATION FORM: ICD-10 Updated PLEASE DO AN ADDENDUM TO THE PROGRESS NOTE WITH ANY DOCUMENTATION UPDATES OR ADDITIONS AND CARRY THROUGH TO DC SUMMARY. THANK YOU. DATE: 02/27/2019 ATTN:DR. Jayme HIGHTOWER Please exercise your independent, professional judgment in responding to the clarification form. Clinical indicators are provided on the bottom of this form for your review. Please check appropriate box(s): [ x] Acute Encephalopathy: Etiology: [ ] Hypertensive [ x ] Metabolic [ ] Toxic [ ] Septic [ ] Other diagnosis [ ] Unable to determine In addition, please specify: Present on Admission (POA): [ x ] Yes [ ] No [ ] Unable to determine For continuity of documentation, please document condition throughout progress notes and discharge summary. Thank You. CLINICAL INDICATORS - SIGNS / SYMPTOMS / LABS 02/25 ED PHYSICIAN DX: SEPSIS , ACUTE DELIRIUM, UTI 02/25 TEMP 103.1 RECTAL 02/25 WBC 02/25 H & P (AFSANEHESHAN) THE PATIENT WILL BE ADMITTED TO MEDICAL FOR SEPSIS WITH UTI, ACUTE ENCEPHALOPATHY, RONNI AND METABOLIC ACIDOSIS. 02/26 PN ( PROMISEADEESHAN) A/P: 4). ACUTE ENCEPHALOPATHY RISK: DX: SEPSIS, UTI, METABOLIC ACIDOSIS (H & P/ PROMISEADEESHAN) TREATMENTS: LEVAQUIN IV ( 02/26-PRESENT) IV FLUIDS( 02/25- PRESENT) THANK YOU! BHAVIN (This form is maintained as a part of the permanent medical record) 2014 [employer], [employer]. All Rights Reserved [email or web address] [phone] MTDD
--- NOTE | 2019-02-27 17:11 | PDOC.HOSPP ---
- Subjective Subjective: awake, responds well to verbal stimuli is oriented well, at bedside no nausea or abd pain tolerating oral diet ambulated with pt in hallway this am with modified walker - Objective Vital Signs & Weight: Vital Signs (12 hours) Temp Pulse Resp BP BP Pulse Ox 02/27/19 17:03 160/67 H 02/27/19 09:10 130/81 02/27/19 09:07 72 02/27/19 09:05 93 L 02/27/19 08:00 99.2 F 72 16 130/81 93 L Weight Admit Weight 167 lb 12.8 oz Weight 167 lb 12.8 oz I&O: 02/26/19 02/27/19 02/28/19 06:59 06:59 06:59 Intake Total 985 2308 Output Total 800 1600 Balance 185 708 Result Diagrams: 02/27/19 06:18 02/27/19 06:18 ROS - Review of Systems All systems: All other ROS were reviewed and found negative. - Medication Medications: Active Medications Generic Name Dose Route Start Last Admin Trade Name Freq PRN Reason Stop Dose Admin Acetaminophen 650 mg 02/25/19 20:37 02/25/19 21:36 Tylenol PO 650 mg Q4H PRN Administration Headache/Fever/Mild Pain (1-3) Acetaminophen/Codeine Phosphate 2 tab 02/26/19 11:18 02/26/19 17:18 Tylenol #3 PO 2 tab Q6H PRN Administration PAIN (4-10) Aspirin 81 mg 02/26/19 09:00 02/27/19 09:09 Aspirin Chewable PO 81 mg DAILY CAYLA Administration Carvedilol 12.5 mg 02/26/19 08:00 02/27/19 17:03 Coreg PO 12.5 mg BID-WM CAYLA Administration Digoxin 0.125 mg 02/26/19 09:00 02/27/19 09:07 Lanoxin PO 0.125 mg DAILY CAYLA Administration Enoxaparin Sodium 30 mg 02/26/19 09:00 02/27/19 09:06 Lovenox SC 30 mg 0900 CAYLA Administration Famotidine 20 mg 02/26/19 09:00 02/27/19 09:11 Pepcid PO 20 mg DAILY CAYLA Administration Levofloxacin 250 mg/ Device 50 mls @ 100 mls/hr 02/26/19 21:00 02/26/19 20:51 IVPB 50 mls Q24HR CALYA Administration Vancomycin HCl 750 mg/ Sodium 250 mls @ 250 mls/hr 02/26/19 23:00 02/26/19 23 :57 Chloride IVPB 250 mls Q24HR CAYLA Administration Levothyroxine Sodium 150 mcg 02/26/19 06:00 02/27/19 05:22 Synthroid PO 150 mcg 0600 CAYLA Administration Olanzapine 5 mg 02/25/19 21:00 02/26/19 20:51 Zyprexa PO 5 mg QPM CAYLA Administration Senna/Docusate Sodium 2 tab 02/25/19 21:00 02/27/19 09:11 Senokot S PO 2 tab BID CAYLA Administration Tramadol HCl 100 mg 02/26/19 21:00 02/27/19 09:07 Ultram PO 100 mg BID CAYLA Administration - Exam NAD, awake alert Eye: PERRL, anicteric sclera ENT: no oropharyngeal lesions, moist mucosa Neck: supple, no JVD Heart: RRR, no murmur Respiratory: no wheezes, no rales Gastrointestinal: soft, non-tender, normal bowel sounds Extremities: no clubbing, no edema Neurological: CN's grossly intact, no focal deficits Musculoskeletal: normal tone, diffuse muscle atrophy (left UE due to prior nerve damage) Psychiatric: normal affect, A&O x 3 Hosp A/P (1) UTI (urinary tract infection) Status: Acute Qualifiers: Urinary tract infection type: acute cystitis Hematuria presence: without hematuria Qualified Code(s): N30.00 - Acute cystitis without hematuria (2) Sepsis Code(s): A41.9 - SEPSIS, UNSPECIFIED ORGANISM Status: Resolved Qualifiers: Sepsis type: sepsis due to unspecified organism Qualified Code(s): A41.9 - Sepsis, unspecified organism (3) RONNI (acute kidney injury) Code(s): N17.9 - ACUTE KIDNEY FAILURE, UNSPECIFIED Status: Acute Plan: resolving (4) Encephalopathy acute Code(s): G93.40 - ENCEPHALOPATHY, UNSPECIFIED Status: Resolved (5) Anemia, normocytic normochromic Code(s): D64.9 - ANEMIA, UNSPECIFIED Status: Chronic (6) Anxiety and depression Code(s): F41.9 - ANXIETY DISORDER, UNSPECIFIED; F32.9 - MAJOR DEPRESSIVE DISORDER, SINGLE EPISODE, UNSPECIFIED Status: Chronic (7) CAD (coronary artery disease) Code(s): I25.10 - ATHSCL HEART DISEASE OF [place] CORONARY ARTERY W/O ANG PCTRS Status: Chronic Qualifiers: Coronary Disease-Associated Artery/Lesion type: [place] artery [place] vs. transplanted heart: [place] heart Associated angina: without angina Qualified Code(s): I25.10 - Atherosclerotic heart disease of [place] coronary artery without angina pectoris (8) Chronic pain disorder Code(s): G89.4 - CHRONIC PAIN SYNDROME Status: Chronic (9) Fibromyalgia Status: Chronic (10) GERD (gastroesophageal reflux disease) Code(s): K21.9 - GASTRO-ESOPHAGEAL REFLUX DISEASE WITHOUT ESOPHAGITIS Status: Chronic Qualifiers: Esophagitis presence: esophagitis presence not specified Qualified Code(s) : K21.9 - Gastro-esophageal reflux disease without esophagitis (11) Hypertension Code(s): I10 - ESSENTIAL (PRIMARY) HYPERTENSION Status: Chronic Qualifiers: (12) Hypothyroidism Code(s): E03.9 - HYPOTHYROIDISM, UNSPECIFIED Status: Chronic Qualifiers: (13) Paroxysmal atrial fibrillation Code(s): I48.0 - PAROXYSMAL ATRIAL FIBRILLATION Status: Chronic - Plan is on levaquin and vanc, await full cultures, prelim urine is growing e.coli dc iv fluids, encourage po intake to ambulate as tolerated d/w pt and , wants to take her home eventually and no placement continue coreg, asp, dig, synthroid, zyprexa and ultram Likely dc plan when cultures are back
[2019-02-27] MEDS: OLANZapine 5 MG TAB PO SCH (21:47)
[2019-02-28] MEDS: Vancomycin HCl 750 MG in Sodium Chloride 0.9% 250 ML 250 ML IVPB SCH
[2019-02-28] MEDS: Acetaminophen 325 MG TAB PO PRN (06:02)
[2019-02-28] MEDS: Levothyroxine 150 MCG TAB PO SCH (06:02)
[2019-02-28] MEDS: Senokot S 8.6-50 MG TAB PO SCH (08:44)
[2019-02-28] MEDS: traMADol HCl 50 MG TAB PO SCH (08:44)
[2019-02-28] MEDS: Famotidine 20 MG TAB PO SCH (08:46)
[2019-02-28] MEDS: Digoxin 0.125 MG TAB PO SCH (08:46)
[2019-02-28] MEDS: Carvedilol 6.25 MG TAB PO SCH (08:46)
[2019-02-28] MEDS: Aspirin Chewable 81 MG TAB PO SCH (08:46)
[2019-02-28] MEDS: Enoxaparin Sodium 30 MG/0.3 ML SYRINGE SC SCH (08:47)
[2019-02-28 10:39] LABS: Anion Gap 10 mmol/L (10-20); BUN (Urea Nitrogen) 26 mg/dL (9.8-20.1); Calc. Creatinine Clearance 54 mL/min (70-130); Calcium 8.3 mg/dL (7.8-10.44); Carbon Dioxide 22 mmol/L (23-31); Chloride 111 mmol/L (98-107); Estimated GFR-MDRD 45; Glucose 118 mg/dL (80-115); Potassium 3.8 mmol/L (3.5-5.1); Sodium 139 mmol/L (136-145)
[2019-02-28 16:30] VITALS: BP 159/84; TEMP 97.8
--- NOTE | 2019-03-01 14:31 | DIS ---
DATE OF ADMISSION: 02/25/2019 DATE OF DISCHARGE: 02/28/2019 DISCHARGE DISPOSITION: Home with [facility]. PRIMARY DISCHARGE DIAGNOSES: 1. Acute metabolic encephalopathy with urinary tract infection, resolved. 2. Sepsis due to urinary tract infection. 3. Acute kidney injury, resolved. SECONDARY DISCHARGE DIAGNOSES: Chronic anemia, anxiety, depression, coronary artery disease, history of fibromyalgia, history of chronic pain disorder, hypertension, hypothyroidism, paroxysmal atrial fibrillation in sinus rhythm at present, gastroesophageal reflux disease. PROCEDURES DONE DURING HOSPITALIZATION: Urine cultures grew E coli sensitive to all antibiotics. Blood cultures x2, no growth. Had a white count of 11 on the day of admission with 87% neutrophils. Discharge BUN and creatinine were 26 and 1.1. Admitting BUN and creatinine were 43 and 1.9 with serum bicarb of 19 on the day of admission. Urine drug screen was positive for benzodiazepines and opioids. UA showed moderate leukocyte esterase, 21 to 50 wbc's, and 2+ bacteria on admission. DISCHARGE MEDICATIONS: 1. Ciprofloxacin 500 mg p.o. twice daily for a total of 4 days. 2. Aspirin 81 mg p.o. daily. 3. Zyprexa 5 mg p.o. q.p.m. 4. Lasix 40 mg p.o. daily. 5. Carvedilol 12.5 mg twice daily. 6. Digoxin 0.125 mg daily. 7. Hydralazine 10 mg p.o. three times daily. 8. Synthroid 150 mcg p.o. daily. ALLERGIES: ALLERGIC TO ANA MARIA INHIBITORS, AMOXICILLIN, KEFLEX, BENADRYL, MIDAZOLAM, PENICILLIN, SULFA, AND CHOCOLATE FLAVOR. DISCHARGE PLAN: The patient to follow up with her primary care physician in 1 week. BRIEF COURSE DURING HOSPITALIZATION: The patient initially was brought by her as she was encephalopathic and had generalized weakness with fever of 103 degrees. On arrival in the ER, the patient was found to have had UTI. She was admitted to medical floor for sepsis, urinary tract infection, acute encephalopathy, and acute kidney injury with metabolic acidosis. The patient was aggressively hydrated during her stay here. Pancultures were obtained. A urine culture has grown E coli sensitive to all antibiotics. PT/OT evaluations were requested. The patient is ambulating with modified rolling walker with her on the floor. He is wanting to take her home with home health. Case Management consultation was requested for the same. [facility] has been arranged for PT and nursing care at home. She is hemodynamically stable and will be shortly discharged home. Job ID: [id number]
== END 2019-02-28 15:31 | disposition home health service (06) | DRG 871 ==
LOC: ERS 13:03 → T4-B 15:13 → UNDODISIN 19:08
PROVIDERS: ADMIT Internal Medicine; ATTEND Internal Medicine
DX: A41.51 Sepsis due to Escherichia coli [E. coli] (principal); G93.41 Metabolic encephalopathy; N17.9 Acute kidney failure, unspecified; E87.2 Acidosis; N30.00 Acute cystitis without hematuria; I10 Essential (primary) hypertension; E03.9 Hypothyroidism, unspecified; I48.0 Paroxysmal atrial fibrillation; G89.4 Chronic pain syndrome; M79.7 Fibromyalgia; I25.10 Atherosclerotic heart disease of native coronary artery without angina pectoris; E66.9 Obesity, unspecified; D64.9 Anemia, unspecified; F41.9 Anxiety disorder, unspecified; F32.9 Major depressive disorder, single episode, unspecified; K21.9 Gastro-esophageal reflux disease without esophagitis; M19.90 Unspecified osteoarthritis, unspecified site; M81.0 Age-related osteoporosis without current pathological fracture; Z90.49 Acquired absence of other specified parts of digestive tract; Z90.710 Acquired absence of both cervix and uterus; Z98.84 Bariatric surgery status; Z88.0 Allergy status to penicillin; Z88.1 Allergy status to other antibiotic agents; Z88.2 Allergy status to sulfonamides; Z88.8 Allergy status to other drugs, medicaments and biological substances; Z91.018 Allergy to other foods; Z79.82 Long term (current) use of aspirin; Z79.899 Other long term (current) drug therapy; Z68.27 Body mass index [BMI] 27.0-27.9, adult; Z85.850 Personal history of malignant neoplasm of thyroid; Z90.89 Acquired absence of other organs; Z92.3 Personal history of irradiation
CPT/HCPCS: 36415; 80048; 80053; 80069; 80202; 80306; 80307; 81003; 81015; 82140; 82550; 83605; 83690; 84484; 85025; 87040; 87077; 87086; 87186; 93005; J1650; J1956; J2310; J3370; J7050

== ENCOUNTER 2019-03-29 17:17 | Emergency (ER) | payer MEDICARE, BC ==
[2019-03-29 18:29] LABS: Bacteria/HPF None Seen HPF (None Seen); Bilirubin Negative (Negative); Blood, Urine Negative (Negative); Clarity Clear (Clear); Glucose, Urine (Dipstick) Normal (Negative); Leukocyte 25 Leu/uL (Negative); Nitrite Negative (Negative); Protein, Urine (Dipstick) Negative (Neg-Trace); RBC/HPF 0-3 HPF (0-3); Squamous Epithelial None Seen HPF (0-3); Urobilinogen Normal mg/dL (Less than 2); WBC/HPF 0-3 HPF (0-3)
[2019-03-29 19:08] LABS: #Eosinphils 0.2 thou/uL (0.0-0.7); #Lymphocytes 2.9 thou/uL (1.20-3.40); #Monocytes 0.8 thou/uL (0.11-0.59); #Neutrophils 5.4 thou/uL (1.40-6.50); %Basophils 0.4 % (0.0-1.0); %Eosinophils 2.6 % (0.0-10.0); %Lymphocytes 30.9 % (21.0-51.0); %Monocytes 8.7 % (0.0-10.0); %Neutrophils 57.5 % (42.0-75.0); Hemoglobin 10.2 g/dL (12.0-16.0); Mean Corpuscular HGB CONC 31.7 g/dL (32.0-36.0); Mean Corpuscular Volume 85.2 fL (78.0-98.0); Mean Platelet Volume 8.9 fL (7.4-10.4); Platelet Count 205 thou/uL (130-400); RBC Distribution Width 14.9 % (11.5-14.5); Red Blood Cell (RBC) Count 3.76 mill/uL (4.20-5.40); White Blood Cell (WBC) Count 9.4 thou/uL (4.8-10.8)
[2019-03-29 19:30] LABS: ALT (SGPT) 9 U/L (8-55); AST (SGOT) 17 U/L (5-34); Albumin 2.8 g/dL (3.4-4.8); Alkaline Phosphatase 77 U/L (40-150); Anion Gap 12 mmol/L (10-20); BUN (Urea Nitrogen) 19 mg/dL (9.8-20.1); Bilirubin, Total 0.3 mg/dL (0.2-1.2); Calc. Creatinine Clearance 0 mL/min (70-130); Calcium 8.1 mg/dL (7.8-10.44); Carbon Dioxide 20 mmol/L (23-31); Chloride 113 mmol/L (98-107); Estimated GFR-MDRD 48; Globulin 2.3 g/dL (2.4-3.5); Glucose 83 mg/dL (80-115); Potassium 4.2 mmol/L (3.5-5.1); Protein, Total 5.1 g/dL (6.0-8.3); Sodium 141 mmol/L (136-145)
--- NOTE | 2019-03-29 19:58 | CT ---
CT HEAD WITHOUT IV CONTRAST COMPARISON: 12/24/2018 HISTORY: Altered mental status and difficulty walking. Confusion for last few days TECHNIQUE: Axial CT imaging at 5 mm intervals from vertex through skull base without contrast FINDINGS: Again noted are a few scattered low-attenuation areas within the periventricular white matter which a re nonspecific but likely reflective of chronic small vessel ischemic changes. Small low-density focus in the superior aspect of the left lentiform nucleus is again seen likely related to a remote l acunar infarction. Low-density focus in the inferior left basal ganglia is also again seen and may represent a dilated perivascular space versus remote lacunar infarction. There is no evidence of an acute infarction, hemorrhage, mass effect, or midline shift. The ventricu lar system is normal in size, shape, and position. Mild cerebral volume loss is present which is not unexpected for the patient's age. Visualized paranasal sinuses are clear. Osseous structures appear intact. IMPRESSION: 1. No acute intracranial abnormality demonstrated.
--- NOTE | 2019-03-30 11:29 | EKG ---
Test Reason : Blood Pressure : / mmHG Vent. Rate : 068 BPM Atrial Rate : 068 BPM P-R Int : 204 ms QRS Dur : 094 ms QT Int : 402 ms P-R-T Axes : 058 004 062 degrees QTc Int : 427 ms Normal sinus rhythm Nonspecific ST and T wave abnormality Abnormal ECG Confirmed by MANUEL JOSÉ D.O. ([id number]), editor & co founder SONA ARAIZA ([id number]) on 03/30/2019 11:29:02 AM Referred By: Confirmed By:MANUEL JOSÉ D.O.
== END 2019-03-29 21:16 | disposition home or self-care (01) ==
LOC: ERS 17:17
DX: R53.1 Weakness (principal); I48.91 Unspecified atrial fibrillation; M81.0 Age-related osteoporosis without current pathological fracture; F41.9 Anxiety disorder, unspecified; F32.9 Major depressive disorder, single episode, unspecified; Z79.899 Other long term (current) drug therapy
CPT/HCPCS: 51701; 70450; 80053; 81003; 81015; 85025; 93005; 96360; A4353

== ENCOUNTER 2019-05-19 09:49 | Emergency (ER) | payer MEDICARE, BC ==
[2019-05-19 10:48] LABS: #Eosinphils 0.1 thou/uL (0.0-0.7); #Lymphocytes 1.9 thou/uL (1.20-3.40); #Monocytes 1.1 thou/uL (0.11-0.59); #Neutrophils 8.1 thou/uL (1.40-6.50); %Basophils 0.2 % (0.0-1.0); %Eosinophils 0.5 % (0.0-10.0); %Lymphocytes 16.9 % (21.0-51.0); %Monocytes 9.5 % (0.0-10.0); %Neutrophils 72.9 % (42.0-75.0); Hemoglobin 12.1 g/dL (12.0-16.0); Mean Corpuscular HGB CONC 31.1 g/dL (32.0-36.0); Mean Corpuscular Hemoglobin 26.8 pg (27.0-31.0); Mean Corpuscular Volume 86.2 fL (78.0-98.0); Platelet Count 249 thou/uL (130-400); RBC Distribution Width 14.8 % (11.5-14.5); Red Blood Cell (RBC) Count 4.51 mill/uL (4.20-5.40); White Blood Cell (WBC) Count 11.1 thou/uL (4.8-10.8)
[2019-05-19 11:08] LABS: ALT (SGPT) 8 U/L (8-55); AST (SGOT) 12 U/L (5-34); Albumin 3.3 g/dL (3.4-4.8); Alkaline Phosphatase 83 U/L (40-110); Anion Gap 12 mmol/L (10-20); BUN (Urea Nitrogen) 19 mg/dL (9.8-20.1); Bilirubin, Total 0.4 mg/dL (0.2-1.2); CK (CPK) 14 U/L (29-168); Calc. Creatinine Clearance 0 mL/min (70-130); Calcium 8.3 mg/dL (7.8-10.44); Carbon Dioxide 21 mmol/L (23-31); Chloride 109 mmol/L (98-107); Estimated GFR-MDRD 49; Globulin 2.7 g/dL (2.4-3.5); Glucose 83 mg/dL (80-115); Lipase 8 U/L (8-78); Potassium 4.2 mmol/L (3.5-5.1); Sodium 138 mmol/L (136-145)
== END 2019-05-19 11:47 | disposition home or self-care (01) ==
LOC: ERS 09:49
DX: R19.7 Diarrhea, unspecified (principal); I50.9 Heart failure, unspecified; F41.9 Anxiety disorder, unspecified; F32.9 Major depressive disorder, single episode, unspecified; Z79.899 Other long term (current) drug therapy
CPT/HCPCS: 36415; 80053; 82550; 83690; 85025; 87045; 87046; 87077; 87324; 87328; 87329; 87427; 87449; 99284

== ENCOUNTER 2019-07-20 10:54 | Inpatient (IN) | payer MEDICARE, BC ==
[2019-07-20 11:44] LABS: #Eosinphils 0.2 thou/uL (0.0-0.7); #Lymphocytes 2.6 thou/uL (1.20-3.40); #Monocytes 0.7 thou/uL (0.11-0.59); #Neutrophils 6.2 thou/uL (1.40-6.50); %Basophils 0.4 % (0.0-1.0); %Lymphocytes 26.4 % (21.0-51.0); %Monocytes 7.6 % (0.0-10.0); %Neutrophils 63.6 % (42.0-75.0); Hemoglobin 10.4 g/dL (12.0-16.0); Mean Corpuscular HGB CONC 32.6 g/dL (32.0-36.0); Mean Corpuscular Hemoglobin 27.4 pg (27.0-31.0); Mean Platelet Volume 8.6 fL (7.4-10.4); Platelet Count 263 thou/uL (130-400); RBC Distribution Width 15.4 % (11.5-14.5); Red Blood Cell (RBC) Count 3.79 mill/uL (4.20-5.40); White Blood Cell (WBC) Count 9.7 thou/uL (4.8-10.8)
[2019-07-20 12:03] LABS: ALT (SGPT) 8 U/L (8-55); AST (SGOT) 17 U/L (5-34); Albumin 3.4 g/dL (3.4-4.8); Alkaline Phosphatase 69 U/L (40-110); Anion Gap 14 mmol/L (10-20); BUN (Urea Nitrogen) 21 mg/dL (9.8-20.1); Bilirubin, Total 0.5 mg/dL (0.2-1.2); Calc. Creatinine Clearance 0 mL/min (70-130); Calcium 8.4 mg/dL (7.8-10.44); Carbon Dioxide 20 mmol/L (23-31); Chloride 114 mmol/L (98-107); Estimated GFR-MDRD 48; Globulin 2.5 g/dL (2.4-3.5); Glucose 87 mg/dL (80-115); Potassium 4.8 mmol/L (3.5-5.1); Protein, Total 5.9 g/dL (6.0-8.3); Sodium 143 mmol/L (136-145)
[2019-07-20 13:22] LABS: Bacteria/HPF 3+ HPF (None Seen); Bilirubin Negative (Negative); Clarity Turbid (Clear); Glucose, Urine (Dipstick) Normal (Negative); Leukocyte 500 Leu/uL (Negative); Nitrite 2+ (Negative); Protein, Urine (Dipstick) 30 mg/dL (Neg-Trace); Squamous Epithelial 0-3 HPF (0-3); Urobilinogen Normal mg/dL (Less than 2); WBC/HPF Greater than 50 HPF (0-3)
[2019-07-20 13:31] LABS: Blood, Urine Negative (Negative)
[2019-07-20] MEDS ORDERED: Ondansetron ODT 4 MG TAB PO PRN ×2 (14:22→19:48)
[2019-07-20] MEDS ORDERED: Ondansetron PF 4 MG/2 ML Vial IVP PRN ×2 (14:22→19:49)
[2019-07-20] MEDS ORDERED: Calcium Carbonate 500 MG ChewTAB PO PRN ×2 (14:22→19:48)
[2019-07-20] MEDS ORDERED: HYDROcodone/Acetaminophen 5/325 mg Tablet PO PRN ×2 (14:22→19:48)
[2019-07-20] MEDS ORDERED: HYDROcodone/Acetaminophen 7.5/325 mg Tablet PO PRN ×2 (14:22→19:48)
[2019-07-20] MEDS ORDERED: Bisacodyl 5 MG TAB PO PRN ×2 (14:22→19:48)
[2019-07-20] MEDS ORDERED: Loperamide HCl 2 MG CAP PO PRN ×2 (14:22→19:48)
[2019-07-20] MEDS ORDERED: Acetaminophen 325 MG TAB PO PRN ×2 (14:22→19:48)
[2019-07-20] MEDS ORDERED: Melatonin 3 MG TAB PO PRN ×2 (14:25→19:49)
[2019-07-20] MEDS ORDERED: Benzonatate 100 MG CAP PO PRN ×2 (14:25→19:49)
[2019-07-20] MEDS ORDERED: Labetalol HCl 100 MG/20 ML VIAL SLOW IVP PRN ×2 (14:25→19:49)
[2019-07-20] MEDS ORDERED: Docusate 100 MG CAP PO PRN ×2 (14:25→19:49)
[2019-07-20] MEDS ORDERED: Furosemide 40 MG TAB PO SCH (14:30)
[2019-07-20] MEDS ORDERED: hydrALAZINE 10 MG TAB PO SCH (15:00)
[2019-07-20] MEDS ORDERED: Heparin 5,000 UNITS/ML VIAL SC SCH (15:00)
[2019-07-20] MEDS ORDERED: Carvedilol 6.25 MG TAB PO SCH (17:00)
[2019-07-20] MEDS ORDERED: Sodium Chloride 0.45% 1,000 ML IV SCH (17:30)
[2019-07-20] MEDS ORDERED: Potassium Chloride 40 MEQ in Sodium Chloride 0.45% 1,000 ML IV SCH (17:30)
--- NOTE | 2019-07-20 17:34 | PDOC.HHP ---
Hospitalist HPI - History of Present Illness UTI symptoms History of Present Illness: 69-year-old female with past medical history of nephrolithiasis and frequent urinary tract infections presents with urinary tract infection symptoms. Patient with past medical history of coronary artery disease with stent placement, atrial fibrillation who is not on oral and coagulation per her practical nurse Dr. Simpson, hypertension, hyperlipidemia, mood disorder, nephrolithiasis, frequent UTIs, and left arm paralysis. I find the patient in the emergency department she is resting comfortably on room air. Patient's at bedside is able to aid in history. Patient tells me that they 're getting tired of having frequent bladder infections and coming back to the hospital. By my count this is the fifth bladder infection the last six months, reported to the hospital. Not including times when she goes to the outpatient clinic both her primary care physician. Patient does have a past medical history of nephrolithiasis that has been monitored in the outpatient setting by her urologist Dr. Gregorio. Per the patient Dr. Gregorio has recommended stone removal many times, however the patient is scared that this will cause shoulder pain and she already has problems with her left shoulder. Over the past week patient has had worsening urinary tract infection symptoms. Roughly 5 days ago patient when in to see her primary care physician was diagnosed with UTI and sent home on antibiotic. Patient roughly 3 days ago was still having symptoms and called her primary care doctor again, she was told that urine analysis did have yeast growing in it and was sent an antifungal. When patient symptoms did not improve she returns to acute care hospital for further evaluation. 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 Nephrolithiasis s/p removal) - Family History Family History: reports: hyperlipidemia, hypertension - Social History Smoking Status: Former smoker Tobacco Type: cigarettes Alcohol: reports: None Drugs: reports: none Living Situation: With Family Domestic Violence: Negative Activity level: uses cane/walker - Exam General Appearance: NAD, awake alert Eye: PERRL, anicteric sclera ENT: normocephalic atraumatic, moist mucosa Neck: supple, symmetric, no lymphadenopathy Heart: no murmur, no gallops, no rubs, irregular Respiratory: CTAB, no wheezes, no rales, no ronchi, normal chest expansion Gastrointestinal: soft, non-tender, non-distended, normal bowel sounds, no bruit , no guarding, no rigidity Extremities: no edema Skin: no lesions, no rashes Neurological: cranial nerve grossly intact, no focal deficits Musculoskeletal: generalized weakness Psychiatric: normal affect, normal behavior, A&O x 3 Hospitalist Results - Labs Result Diagrams: 07/20/19 11:28 07/20/19 11:28 Lab results: WBC 9.7 thou/uL (4.8-10.8) 07/20/19 11:28 Hgb 10.4 g/dL (12.0-16.0) L 07/20/19 11:28 Hct 31.8 % (36.0-47.0) L 07/20/19 11:28 MCV 84.0 fL (78.0-98.0) 07/20/19 11:28 Plt Count 263 thou/uL (130-400) 07/20/19 11:28 Neutrophils % 63.6 % (42.0-75.0) 07/20/19 11:28 Sodium 143 mmol/L (136-145) 07/20/19 11:28 Potassium 4.8 mmol/L (3.5-5.1) 07/20/19 11:28 Chloride 114 mmol/L (98-107) H 07/20/19 11:28 Carbon Dioxide 20 mmol/L (23-31) L 07/20/19 11:28 BUN 21 mg/dL (9.8-20.1) H 07/20/19 11:28 Creatinine 1.12 mg/dL (0.6-1.1) H 07/20/19 11:28 Glucose 87 mg/dL (80-115) 07/20/19 11:28 Calcium 8.4 mg/dL (7.8-10.44) 07/20/19 11:28 Total Bilirubin 0.5 mg/dL (0.2-1.2) 07/20/19 11:28 AST 17 U/L (5-34) 07/20/19 11:28 ALT 8 U/L (8-55) 07/20/19 11:28 Alkaline Phosphatase 69 U/L (40-110) 07/20/19 11:28 Troponin I Less than 0.010 ng/mL (< 0.028) 07/20/19 11:28 Serum Total Protein 5.9 g/dL (6.0-8.3) L 07/20/19 11:28 Albumin 3.4 g/dL (3.4-4.8) 07/20/19 11:28 Urine Ketones Negative mg/dL (Negative) 07/20/19 12:50 Urine Blood Negative (Negative) 07/20/19 12:50 Urine Nitrite 2+ (Negative) A 07/20/19 12:50 Ur Leukocyte Esterase 500 [place]/uL (Negative) A 07/20/19 12:50 Urine RBC 4-6 HPF (0-3) A 07/20/19 12:50 Urine WBC Greater than 50 HPF (0-3) A 07/20/19 12:50 Ur Squamous Epith Cells 0-3 HPF (0-3) 07/20/19 12:50 Urine Bacteria 3+ HPF (None Seen) A 07/20/19 12:50 Hospitalist H&P A/P - Problem (1) RONNI (acute kidney injury) Code(s): N17.9 - ACUTE KIDNEY FAILURE, UNSPECIFIED Status: Acute (2) Acute on chronic diastolic (congestive) heart failure Code(s): I50.33 - ACUTE ON CHRONIC DIASTOLIC (CONGESTIVE) HEART FAILURE Status : Acute (3) UTI (urinary tract infection) Status: Acute Qualifiers: Urinary tract infection type: acute cystitis Hematuria presence: without hematuria Qualified Code(s): N30.00 - Acute cystitis without hematuria (4) Anemia, normocytic normochromic Code(s): D64.9 - ANEMIA, UNSPECIFIED Status: Chronic (5) Anxiety and depression Code(s): F41.9 - ANXIETY DISORDER, UNSPECIFIED; F32.9 - MAJOR DEPRESSIVE DISORDER, SINGLE EPISODE, UNSPECIFIED Status: Chronic (6) CAD (coronary artery disease) Code(s): I25.10 - ATHSCL HEART DISEASE OF [place] CORONARY ARTERY W/O ANG PCTRS Status: Chronic Qualifiers: Coronary Disease-Associated Artery/Lesion type: [place] artery [place] vs. transplanted heart: [place] heart Associated angina: without angina Qualified Code(s): I25.10 - Atherosclerotic heart disease of [place] coronary artery without angina pectoris (7) Chronic pain disorder Code(s): G89.4 - CHRONIC PAIN SYNDROME Status: Chronic (8) Fibromyalgia Status: Chronic (9) GERD (gastroesophageal reflux disease) Code(s): K21.9 - GASTRO-ESOPHAGEAL REFLUX DISEASE WITHOUT ESOPHAGITIS Status: Chronic Qualifiers: Esophagitis presence: esophagitis presence not specified Qualified Code(s) : K21.9 - Gastro-esophageal reflux disease without esophagitis (10) Hypertension Code(s): I10 - ESSENTIAL (PRIMARY) HYPERTENSION Status: Chronic Qualifiers: (11) Hypothyroidism Code(s): E03.9 - HYPOTHYROIDISM, UNSPECIFIED Status: Chronic Qualifiers: (12) Lupus Code(s): L93.0 - DISCOID LUPUS ERYTHEMATOSUS Status: Chronic Qualifiers: Lupus erythematosus form: unspecified Qualified Code(s): L93.0 - Discoid lupus erythematosus (13) Obesity (BMI 30-39.9) Code(s): E66.9 - OBESITY, UNSPECIFIED Status: Chronic (14) Paroxysmal atrial fibrillation Code(s): I48.0 - PAROXYSMAL ATRIAL FIBRILLATION Status: Chronic - Plan Plan: Plan: Admit to medical unit Infectious disease consultation, recommendations appreciated consider urology consultation, pending CT CT scan of the abdomen and pelvis with stone protocol broad-spectrum IV antibiotics de-escalate to culture and sensitivity as able urine culture blood culture greater than five urinary tract infections over the past six months at this hospital alone, not including UTIs diagnosed in the primary care physician clinic. Patient with history of nephrolithiasis, I am concerned that nephrolithiasis is acting as a nidus for infection and may be colonized around the stone. Resume home medications as able Blood pressure control DVT prophylaxis: heparin Code status: patient and her state that she wished to be a full code. for patients paroxysmal atrial fibrillation she is not on oral and coagulation per her practical nurse Dr. Simpson
--- NOTE | 2019-07-20 19:04 | CT ---
CT OF THE ABDOMEN AND PELVIS WITHOUT IV CONTRAST INDICATION: Chronic UTI symptoms COMPARISON: CT the abdomen and pelvis with contrast dated July 08, 2017 FINDINGS: This examination is limited for the evaluation of solid organs and vascular structures due to the lac k of intravenous contrast. ABDOMEN: Lung bases: There are small bilateral pleural effusions. There is mild cardiomegaly. There is bibasil ar volume loss Liver: No focal lesion. Gallbladder: Surgically absent Pancreas: Normal. Adrenal glands: Normal. Spleen: Normal. Kidneys and ureters: Bilateral nephrolithiasis appears relatively stable. There are bilateral staghor n calculi which are stable. There are 2 separate 8 mm stones within the left renal pelvis. There is a 7 mm stone within the right renal pelvis. There are additional 3 mm 4 mm stones within the right re nal pelvis. There is a 1.2 cm stone involving inferior pole right kidney which is stable. There is stable atrophy of the right kidney. No hydronephrosis is demonstrated. No ureteral calculus is noted. Vasculature: There are mild vascular calcifications seen involving the visualized vasculature. Lymph nodes:No lymphadenopathy. Free fluid in abdomen:No free fluid is evident. PELVIS: Small and large bowel: There is a moderate amount retained stool within the colon. There is posterior change of a gastric bypass. Appendix:Normal Bladder: Normal. Rectal and perirectal soft tissues:Normal. Reproductive structures: Surgically absent Free fluid in pelvis: No free fluid is evident. Lymphadenopathy pelvis: No lymphadenopathy is evident. Osseous structures: Diffuse osteopenia. No acute fracture or subluxation demonstrated. There is scat tered degenerative and osteoarthritic changes. Soft tissues:Normal. IMPRESSION: 1. Stable bilateral nephrolithiasis with prominent staghorn calculi involving the right kidney and panda th renal pelves. No hydronephrosis is evident. No ureteral calculus is noted. There is stable atrophy of the right kidney. 2. Small bilateral pleural effusions. 3. Constipation
[2019-07-20] MEDS ORDERED: Famotidine 20 MG TAB PO SCH (21:00)
[2019-07-20] MEDS ORDERED: OLANZapine 2.5 MG TAB PO SCH (21:00)
[2019-07-20] MEDS: Heparin 5,000 UNITS/ML VIAL SC SCH (21:06)
[2019-07-20] MEDS: Sodium Chloride 0.45% 1,000 ML IV SCH (21:06)
[2019-07-20] MEDS: Famotidine 20 MG TAB PO SCH (21:06)
[2019-07-20] MEDS: OLANZapine 2.5 MG TAB PO SCH (21:07)
[2019-07-20] MEDS: hydrALAZINE 10 MG TAB PO SCH (21:07)
[2019-07-20 21:15] VITALS: BMI 27.6
[2019-07-21] MEDS: Levothyroxine 150 MCG TAB PO SCH (05:26)
[2019-07-21] MEDS ORDERED: Levothyroxine 150 MCG TAB PO SCH (06:00)
[2019-07-21] MEDS: Famotidine 20 MG TAB PO SCH ×2 (08:37→20:47)
[2019-07-21] MEDS: Digoxin 0.125 MG TAB PO SCH (08:37)
[2019-07-21] MEDS: Carvedilol 6.25 MG TAB PO SCH ×2 (08:38→18:12)
[2019-07-21] MEDS: Aspirin Chewable 81 MG TAB PO SCH (08:38)
[2019-07-21] MEDS: Heparin 5,000 UNITS/ML VIAL SC SCH ×3 (08:38→20:49)
[2019-07-21] MEDS: hydrALAZINE 10 MG TAB PO SCH ×3 (08:44→20:47)
[2019-07-21] MEDS: Sodium Chloride 0.45% 1,000 ML IV SCH ×2 (08:55→20:50)
[2019-07-21] MEDS ORDERED: Digoxin 0.125 MG TAB PO SCH (09:00)
[2019-07-21] MEDS ORDERED: Aspirin Chewable 81 MG TAB PO SCH (09:00)
[2019-07-21] MEDS ORDERED: Furosemide 40 MG TAB PO SCH (09:00)
[2019-07-21] MEDS ORDERED: Prevnar 13-Val Conj/PF 0.5 ML SYRINGE IM ONE (09:00)
[2019-07-21 10:35] LABS: #Eosinphils 0.2 thou/uL (0.0-0.7); #Lymphocytes 1.7 thou/uL (1.20-3.40); #Monocytes 0.6 thou/uL (0.11-0.59); %Basophils 0.1 % (0.0-1.0); %Eosinophils 2.4 % (0.0-10.0); %Lymphocytes 20.2 % (21.0-51.0); %Monocytes 6.7 % (0.0-10.0); %Neutrophils 70.7 % (42.0-75.0); Hemoglobin 10.9 g/dL (12.0-16.0); Mean Corpuscular HGB CONC 31.7 g/dL (32.0-36.0); Mean Corpuscular Hemoglobin 26.8 pg (27.0-31.0); Mean Corpuscular Volume 84.6 fL (78.0-98.0); Mean Platelet Volume 7.9 fL (7.4-10.4); Platelet Count 271 thou/uL (130-400); RBC Distribution Width 15.2 % (11.5-14.5); Red Blood Cell (RBC) Count 4.07 mill/uL (4.20-5.40); White Blood Cell (WBC) Count 8.4 thou/uL (4.8-10.8)
[2019-07-21 10:54] LABS: Anion Gap 14 mmol/L (10-20); BUN (Urea Nitrogen) 17 mg/dL (9.8-20.1); Calc. Creatinine Clearance 56 mL/min (70-130); Calcium 8.8 mg/dL (7.8-10.44); Carbon Dioxide 19 mmol/L (23-31); Chloride 114 mmol/L (98-107); Estimated GFR-MDRD 49; Glucose 113 mg/dL (80-115); Potassium 4.5 mmol/L (3.5-5.1); Sodium 142 mmol/L (136-145)
[2019-07-21] MEDS ORDERED: Morphine 4 MG/ML VIAL SLOW IVP PRN (10:58)
[2019-07-21] MEDS: HYDROcodone/Acetaminophen 10/325 mg Tablet PO PRN ×2 (13:06→20:50)
--- NOTE | 2019-07-21 15:12 | PDOC.HOSPP ---
- Subjective Subjective: Seen and examined. Patient did not sleep well and had a rough night. Severe shoulder pain. 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 Patient states urinary tract infection symptoms are improving. Pain medications adjusted to better control shoulder pain. Discuss case with patient's at bedside, all questions answered in detail. - Objective Vital Signs & Weight: Vital Signs (12 hours) Temp Pulse Resp BP BP BP Pulse Ox 07/21/19 13:48 98.2 F 77 16 151/83 H 96 07/21/19 11:21 98.4 F 69 18 130/82 96 07/21/19 08:44 69 07/21/19 08:38 116/73 07/21/19 08:37 69 07/21/19 07:10 98.4 F 69 19 159/87 H 96 07/21/19 04:08 98.6 F 76 18 154/82 H 94 L Weight Weight 166 lb 4.8 oz I&O: 07/20/19 07/21/19 07/22/19 06:59 06:59 06:59 Intake Total 662 Balance 662 Result Diagrams: 07/21/19 10:25 07/21/19 10:25 Radiology Reviewed by me: Yes Hospitalist ROS - Review of Systems All other systems reviewed; all pertinent +/- noted in HPI/Subj - Medication Medications: Active Medications Generic Name Dose Route Start Last Admin Trade Name Freq PRN Reason Stop Dose Admin Hydrocodone Bitart/Acetaminophen 1 tab 07/21/19 10:57 07/21/19 13:06 [place] 10/325 PO 1 tab Q4H PRN Administration Moderate Pain (4-6) Aspirin 81 mg 07/21/19 09:00 07/21/19 08:38 Aspirin Chewable PO 81 mg DAILY CAYLA Administration Carvedilol 12.5 mg 07/21/19 08:00 07/21/19 08:38 Coreg PO 12.5 mg BID-WM CAYLA Administration Digoxin 0.125 mg 07/21/19 09:00 07/21/19 08:37 Lanoxin PO 0.125 mg DAILY CAYLA Administration Famotidine 20 mg 07/20/19 21:00 07/21/19 08:37 Pepcid PO 20 mg BID CAYLA Administration Furosemide 40 mg 07/21/19 09:00 07/21/19 08:37 Lasix PO 40 mg Q2D CAYLA Administration Heparin Sodium (Porcine) 5,000 units 07/20/19 21:00 07/21/19 08:38 Heparin SC 5,000 units TID CAYLA Administration Hydralazine HCl 10 mg 07/20/19 21:00 07/21/19 08:44 Apresoline PO 10 mg TID CAYLA Administration Levofloxacin 750 mg/ Device 150 mls @ 100 mls/hr 07/21/19 14:00 07/21/19 13: 07 IVPB 150 mls 1400 CAYLA Administration Sodium Chloride 1,000 mls @ 75 mls/hr 07/20/19 20:00 07/21/19 08:55 1/2 Normal Saline IV Not Given .[id number] CAYLA Levothyroxine Sodium 150 mcg 07/21/19 06:00 07/21/19 05:26 Synthroid PO 150 mcg 0600 CAYLA Administration Olanzapine 5 mg 07/20/19 21:00 07/20/19 21:07 Zyprexa PO 5 mg QPM CAYLA Administration Sodium Chloride 10 ml 07/20/19 21:00 07/21/19 08:39 Flush - Normal Saline IVF 10 ml Q12HR CAYLA Administration - Exam General Appearance: NAD, awake alert Eye: PERRL ENT: normocephalic atraumatic, moist mucosa Neck: supple, symmetric, no lymphadenopathy Heart: no murmur, no gallops, no rubs, normal peripheral pulses Respiratory: CTAB, no wheezes, no rales, no ronchi, no tachypnea Gastrointestinal: soft, non-tender, non-distended, no guarding, no rigidity Extremities: no edema Skin: no lesions, no rashes Neurological: cranial nerve grossly intact, normal sensation to touch, no focal deficits Musculoskeletal: generalized weakness Musculoskeletal - other findings: Left arm flacid paralysis. Pain with any minor ROM testing Psychiatric: normal affect, normal behavior, A&O x 3 Hosp A/P (1) RONNI (acute kidney injury) Code(s): N17.9 - ACUTE KIDNEY FAILURE, UNSPECIFIED Status: Acute (2) Acute on chronic diastolic (congestive) heart failure Code(s): I50.33 - ACUTE ON CHRONIC DIASTOLIC (CONGESTIVE) HEART FAILURE Status : Acute (3) UTI (urinary tract infection) Status: Acute Qualifiers: Urinary tract infection type: acute cystitis Hematuria presence: without hematuria Qualified Code(s): N30.00 - Acute cystitis without hematuria (4) Anemia, normocytic normochromic Code(s): D64.9 - ANEMIA, UNSPECIFIED Status: Chronic (5) Anxiety and depression Code(s): F41.9 - ANXIETY DISORDER, UNSPECIFIED; F32.9 - MAJOR DEPRESSIVE DISORDER, SINGLE EPISODE, UNSPECIFIED Status: Chronic (6) CAD (coronary artery disease) Code(s): I25.10 - ATHSCL HEART DISEASE OF [place] CORONARY ARTERY W/O ANG PCTRS Status: Chronic Qualifiers: Coronary Disease-Associated Artery/Lesion type: [place] artery [place] vs. transplanted heart: [place] heart Associated angina: without angina Qualified Code(s): I25.10 - Atherosclerotic heart disease of [place] coronary artery without angina pectoris (7) Chronic pain disorder Code(s): G89.4 - CHRONIC PAIN SYNDROME Status: Chronic (8) Fibromyalgia Status: Chronic (9) GERD (gastroesophageal reflux disease) Code(s): K21.9 - GASTRO-ESOPHAGEAL REFLUX DISEASE WITHOUT ESOPHAGITIS Status: Chronic Qualifiers: Esophagitis presence: esophagitis presence not specified Qualified Code(s) : K21.9 - Gastro-esophageal reflux disease without esophagitis (10) Hypertension Code(s): I10 - ESSENTIAL (PRIMARY) HYPERTENSION Status: Chronic Qualifiers: (11) Hypothyroidism Code(s): E03.9 - HYPOTHYROIDISM, UNSPECIFIED Status: Chronic Qualifiers: (12) Lupus Code(s): L93.0 - DISCOID LUPUS ERYTHEMATOSUS Status: Chronic Qualifiers: Lupus erythematosus form: unspecified Qualified Code(s): L93.0 - Discoid lupus erythematosus (13) Obesity (BMI 30-39.9) Code(s): E66.9 - OBESITY, UNSPECIFIED Status: Chronic (14) Paroxysmal atrial fibrillation Code(s): I48.0 - PAROXYSMAL ATRIAL FIBRILLATION Status: Chronic - Plan Plan: medical unit infectious disease consultation, recommendations appreciated consider urology consultation CT scan of the abdomen and pelvis with stone protocol noted for bilateral nephrolithiasis, all though there is no acute pathology that requires emergent intervention, staghorn calculus on the right side is quite large broad-spectrum IV antibiotics De-escalate to culture and sensitivity as able urine culture blood culture greater than five urinary tract infections of the past six months possibility that nephrolithiasis is acting as a nidus for infection and may be colonized around the stone resume home medications as able blood pressure control adjust pain regimen DVT prophylaxis: heparin subcutaneous injection code status: the patient and her state that she wishes to be a full code For patients paroxysmal atrial fibrillation she is not on oral anticoagulation for her help desk technician Dr. Simpson
[2019-07-21] MEDS: Gabapentin 100 MG CAP PO SCH ×2 (16:12→20:47)
--- NOTE | 2019-07-21 18:13 | CON ---
DATE OF CONSULTATION: 07/21/2019 REASON FOR CONSULT: Recurrent urinary tract infection with nephrolithiasis. 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 She has been offered lithotripsy by Dr. Gregorio in the past, but she has declined due to fear of a surgical intervention in relationship to her bad experience with a left shoulder surgery. The urinary cultures have basically showed Enterobacter, Klebsiella, and E. coli since 2016. Most recently, she had Klebsiella and now it appears that she has the same organism again. At this time, she did have dysuria, urinary frequency, and she did have a documented fever. No chills. No altered mental status. No respiratory symptoms or abdominal pain or diarrhea. No back pain. The left upper extremity is paralyzed and has not improved in the past 4 years. No bleeding. No neurological symptoms. PAST MEDICAL HISTORY: Coronary artery disease, atrial fibrillation, hyperlipidemia, hypertension, presumed systemic lupus erythematosus not well documented, paralysis left upper extremity following iatrogenic injury to brachial nerve during surgical replacement of the shoulder, and recurrent urinary tract infections with progression of staghorn calculi right and left side with chronic colonization by Enterobacter/Klebsiella and E. coli. She has had two removals of stones and was supposed to have more, has not had the courage to complete them. Gastric bypass surgery. FAMILY HISTORY: Hypertension and hyperlipidemia. SOCIAL HISTORY: Former smoker. Lives in the area. . CURRENT MEDICATIONS: 1. P.R.N. medications. 2. Coreg. 3. Lanoxin. 4. Colace. 5. Pepcid. 6. Lasix. 7. Neurontin. 8. Levofloxacin. 9. Synthroid. 10. Melatonin. 11. Zyprexa. 12. Zofran. ALLERGIES: ANA MARIA INHIBITORS, AMOXICILLIN, CEPHALEXIN, SULFA DRUGS, AND VERSED. PHYSICAL EXAMINATION: VITAL SIGNS: T-max 98.6, blood pressure 150/83, pulse 77, respirations 16, and O2 saturation 96. SKIN: With mild erythema in the perineal area. Peripheral IV access. She is voiding in the toilet. No lymphadenopathy. HEENT: Ocular movements conjugate. Oral cavity with no significant findings. NECK: Supple. No jugular vein distention. Paralysis, left lower extremity, which is due to nerve injury a few years ago and is unchanged. The paralysis is complete. LUNGS: Clear to auscultation and percussion. HEART: S1 and S2 regular rate. No S3 or S4. ABDOMEN: Soft. No distention. No bladder distention. No organomegaly. No ascites. EXTREMITIES: Pulses are 2+ in dorsalis pedis. Cap refill normal. Plantar responses are flexor. NEUROLOGIC: No focal weakness. Cognitive function appears to be intact. LABORATORY DATA: White cell count 9.7 and 8.4, hemoglobin 10.4, and platelets 263. Sodium 143 and creatinine 1.12. Liver profile normal. Albumin 3.4. Urinalysis greater than 50 wbc's. Urine culture with Klebsiella pneumoniae/Enterobacter pending full identification and susceptibility profile. The organism is cornified at greater than 100,000 CFUs. Last imaging procedure done yesterday demonstrated small bilateral pleural effusions, bilateral nephrolithiasis, and bilateral staghorn calculi, which are stable. Two separate 8 mm stones in the left renal pelvis and a 7 mm stone within the right renal pelvis, some atrophy in the right kidney. There is some free fluid in the abdomen. A moderate amount of retained stool within the colon. There is a gastric bypass. ASSESSMENT: 1. Paralysis, left upper extremity following shoulder replacement surgery. 2. Worsening nephrolithiasis, right kidney, possibly associated with gastric bypass surgery with likely colonization of the urinary tract bilaterally by Klebsiella/Enterobacter, Escherichia coli. The organisms have in the past displayed very broad susceptibility profile. DISCUSSION: The patient again was encouraged to follow up with Dr. Gregorio after she is discharged from here to carry out the likely multiple required procedures for elimination of the stones. She will need after that then proper fluid intake, maybe adding potassium citrate. Increase calcium in diet and may be hydrochlorothiazide in an attempt to prevent recrudescence/worsening of the stone burden. Going forward, may consider suppressive therapy with either low-dose quinolone or Macrodantin at bedtime to prevent recurrences. In the period surrounding the upcoming lithotripsies, this patient would require antimicrobial therapy to prevent invasive infection. This to be directed by the results of the current antimicrobial susceptibility tests. Job ID: [id number] MTDD
[2019-07-21] MEDS: OLANZapine 2.5 MG TAB PO SCH (20:48)
[2019-07-22] MEDS: Levothyroxine 150 MCG TAB PO SCH (05:51)
[2019-07-22] MEDS: Digoxin 0.125 MG TAB PO SCH (08:29)
[2019-07-22] MEDS: Famotidine 20 MG TAB PO SCH (08:30)
[2019-07-22] MEDS: Carvedilol 6.25 MG TAB PO SCH (08:30)
[2019-07-22] MEDS: hydrALAZINE 10 MG TAB PO SCH ×2 (08:30→14:06)
[2019-07-22] MEDS: Gabapentin 100 MG CAP PO SCH ×2 (08:32→14:05)
[2019-07-22] MEDS: Aspirin Chewable 81 MG TAB PO SCH (08:32)
[2019-07-22] MEDS: Heparin 5,000 UNITS/ML VIAL SC SCH ×2 (08:32→14:05)
[2019-07-22] MEDS: HYDROcodone/Acetaminophen 10/325 mg Tablet PO PRN (09:01)
[2019-07-22 11:53] VITALS: TEMP 99
[2019-07-22] MEDS: Sodium Chloride 0.45% 1,000 ML IV SCH (13:00)
[2019-07-22 14:06] VITALS: BP 132/78
--- NOTE | 2019-07-23 10:11 | DIS ---
DATE OF ADMISSION: 07/20/2019 DATE OF DISCHARGE: 07/22/2019 DISCHARGE DISPOSITION: Home. FOLLOWUP: Follow up with primary care physician, Dr. Franklin Curry, in 1 week. Follow up with Infectious Disease, Dr. Cullen, as well as Urology, Dr. Raji Gregorio, in 1 week. DISCHARGE MEDICATIONS: 1. Levaquin 500 mg daily for next 7 to 10 days. The patient was advised to call Dr. Cullen' office for antibiotic duration. 2. Florastor 250 mg daily. 3. All other home medications were left unchanged. The patient was seen and examined on the day of discharge. Denies any new complaints. No chest pain, shortness of breath, fever, or chills reported. Symptomatically, she feels much better and is requesting to be discharged. BRIEF HOSPITAL COURSE: The patient is a 69-year-old female with frequent UTIs and nephrolithiasis in the past, presented to the emergency room with generalized weakness along with dysuria. Workup was consistent with UTI. Urinalysis showed greater than 50 wbc's with 3+ bacteria. Urine culture was positive for Klebsiella, sensitive to Levaquin, and resistant to Macrobid. She underwent a CT scan of the abdomen that showed stable bilateral nephrolithiasis with prominent staghorn calculi involving the right kidney and both renal pelves. There was no hydronephrosis or ureteral calculus. There was stable atrophy of the right kidney. She also had constipation on the CT that resolved. She was placed on IV Levaquin, that will be transitioned to oral. The patient requested to be discharged. She appears stable for discharge. She was advised to follow up with Dr. Cullen and Dr. Gregorio as scheduled. FINAL DIAGNOSES: 1. Acute urinary tract infection secondary to Klebsiella, present on admission. 2. Chronic kidney disease, stage 3. 3. Metabolic acidosis, mild, probably secondary to chronic kidney disease. 4. Hypertension. 5. Hyperlipidemia. 6. Coronary artery disease. 7. Chronic anemia. PLAN: Plan was discussed with the patient in detail. She stated understanding. Job ID: [id number]
== END 2019-07-22 14:28 | disposition home or self-care (01) | DRG 689 ==
LOC: ERS 10:54 → T4-A 14:29 → ERS 17:29
PROVIDERS: ADMIT Internal Medicine; ATTEND Internal Medicine
DX: N39.0 Urinary tract infection, site not specified (principal); I50.33 Acute on chronic diastolic (congestive) heart failure; I13.0 Hypertensive heart and chronic kidney disease with heart failure and stage 1 through stage 4 chronic kidney disease, or unspecified chronic kidney disease; N17.9 Acute kidney failure, unspecified; I25.10 Atherosclerotic heart disease of native coronary artery without angina pectoris; E78.5 Hyperlipidemia, unspecified; F39 Unspecified mood [affective] disorder; M19.91 Primary osteoarthritis, unspecified site; N18.9 Chronic kidney disease, unspecified; D64.9 Anemia, unspecified; F41.9 Anxiety disorder, unspecified; K21.9 Gastro-esophageal reflux disease without esophagitis; L93.0 Discoid lupus erythematosus; E66.9 Obesity, unspecified; I48.0 Paroxysmal atrial fibrillation; B96.1 Klebsiella pneumoniae [K. pneumoniae] as the cause of diseases classified elsewhere; Z95.5 Presence of coronary angioplasty implant and graft; Z87.891 Personal history of nicotine dependence; Z68.27 Body mass index [BMI] 27.0-27.9, adult
CPT/HCPCS: 36415; 74176; 80048; 80053; 81003; 81015; 84484; 85025; 87077; 87086; 87186; 93005; 96365; 96366; A4353; J1644; J1956

== ENCOUNTER 2019-08-08 11:10 | Emergency (ER) | payer MEDICARE, BC ==
--- NOTE | 2019-08-08 11:55 | RAD ---
XR Chest 1 View Portable HISTORY: Altered mental status COMPARISON: 12/24/2018 FINDINGS: The heart size is normal. The lungs are well expanded without focal areas of consolidation, pneumothorax or pleural effusions. Postop changes of left shoulder arthroplasty are again seen. There is evidence of old granulomatous d isease. IMPRESSION: No radiographic evidence of acute cardiopulmonary process.
[2019-08-08 12:01] LABS: #Eosinphils 0.3 thou/uL (0.0-0.7); #Lymphocytes 2.4 thou/uL (1.20-3.40); #Monocytes 0.8 thou/uL (0.11-0.59); #Neutrophils 8.5 thou/uL (1.40-6.50); %Basophils 0.3 % (0.0-1.0); %Eosinophils 2.5 % (0.0-10.0); %Lymphocytes 20.2 % (21.0-51.0); %Monocytes 6.6 % (0.0-10.0); %Neutrophils 70.4 % (42.0-75.0); Hemoglobin 10.8 g/dL (12.0-16.0); Mean Corpuscular HGB CONC 30.3 g/dL (32.0-36.0); Mean Corpuscular Hemoglobin 25.1 pg (27.0-31.0); Mean Corpuscular Volume 83.1 fL (78.0-98.0); Mean Platelet Volume 7.9 fL (7.4-10.4); Platelet Count 290 thou/uL (130-400); RBC Distribution Width 15.5 % (11.5-14.5); Red Blood Cell (RBC) Count 4.28 mill/uL (4.20-5.40)
[2019-08-08 12:01] LABS: Bacteria/HPF None Seen HPF (None Seen); Bilirubin Negative (Negative); Blood, Urine Negative (Negative); Clarity Clear (Clear); Glucose, Urine (Dipstick) Normal (Negative); Leukocyte 250 Leu/uL (Negative); Nitrite Negative (Negative); Protein, Urine (Dipstick) 10 mg/dL (Neg-Trace); RBC/HPF 0-3 HPF (0-3); Squamous Epithelial None Seen HPF (0-3); Urobilinogen Normal mg/dL (Less than 2)
[2019-08-08 12:14] LABS: ALT (SGPT) 8 U/L (8-55); AST (SGOT) 14 U/L (5-34); Albumin 3.5 g/dL (3.4-4.8); Alkaline Phosphatase 73 U/L (40-110); Anion Gap 12 mmol/L (10-20); BUN (Urea Nitrogen) 18 mg/dL (9.8-20.1); Bilirubin, Total 0.5 mg/dL (0.2-1.2); Calc. Creatinine Clearance 0 mL/min (70-130); Calcium 8.3 mg/dL (7.8-10.44); Carbon Dioxide 21 mmol/L (23-31); Chloride 114 mmol/L (98-107); Estimated GFR-MDRD 50; Globulin 2.2 g/dL (2.4-3.5); Glucose 88 mg/dL (80-115); Potassium 4.5 mmol/L (3.5-5.1); Protein, Total 5.7 g/dL (6.0-8.3); Sodium 142 mmol/L (136-145)
[2019-08-08 12:36] LABS: CKMB 1.2 ng/mL (0-6.6)
== END 2019-08-08 13:43 | disposition home or self-care (01) ==
LOC: ERS 11:10
DX: N30.00 Acute cystitis without hematuria (principal); E86.0 Dehydration; R74.8 Abnormal levels of other serum enzymes; I50.9 Heart failure, unspecified; F41.9 Anxiety disorder, unspecified; F32.9 Major depressive disorder, single episode, unspecified; M19.90 Unspecified osteoarthritis, unspecified site; I48.91 Unspecified atrial fibrillation; Z95.5 Presence of coronary angioplasty implant and graft
CPT/HCPCS: 36415; 71045; 80053; 81003; 81015; 82553; 84484; 85025; 93005

== ENCOUNTER 2019-10-11 09:10 | Outpatient (CLI) | payer MEDICARE, BC ==
--- NOTE | 2019-10-11 09:55 | BD ---
BONE DENSITOMETRY USING DEXA: Date: 10/11/2019 HISTORY: Osteoporosis. FINDINGS: Lumbar Spine: BMD (g/cm2) L1 0.829 T-Score: -1.5 Z-Score: 0.4 L2 0.800 T-Score: -2.1 Z-Score: 0.0 L3 0.851 T-Score: -2.1 Z-Score: 0.1 L4 0.813 T-Score: -2.3 Z-Score: 0.0 L1-L4 0.823 T-Score: -2.0 Z-Score: 0.1 IMPRESSION: Osteoporosis. POS: [facility]
--- NOTE | 2019-10-11 09:58 | RAD ---
CHEST 2 VIEWS: Date: 10/11/2019 HISTORY: Weight loss pulmonary nodule FINDINGS: Increased linear and interstitial markings are noted bilaterally, with little change from the prior 0 08/08/2019 study. Left shoulder reverse arthroplasty. Minimal pleural and parenchymal changes in the r ight costophrenic angle and right base, more prominent than on the prior study. Borderline heart size . No confluent lobar pneumonia. IMPRESSION: 1. Minimal pleural and parenchymal opacity changes in the right base, more prominent than prior stud y. 2. Increased linear and interstitial markings, particularly in the parahilar region and mid lung zon es bilaterally with little change. 3. Atherosclerosis of aorta. POS: [facility]
== END 2019-10-11 09:11 | disposition home or self-care (01) ==
LOC: BICMAMMO 09:10
PROVIDERS: ATTEND Internal Medicine Rheumatology
DX: M81.0 Age-related osteoporosis without current pathological fracture (principal); R91.1 Solitary pulmonary nodule; R63.4 Abnormal weight loss; I70.0 Atherosclerosis of aorta; R91.8 Other nonspecific abnormal finding of lung field
CPT/HCPCS: 71046; 77080

== ENCOUNTER 2019-10-21 07:45 | Outpatient (CLI) | payer MEDICARE, BC ==
[2019-10-21 16:59] LABS: Hemoglobin 10.6 g/dL (12.0-16.0); Mean Corpuscular HGB CONC 31.9 g/dL (32.0-36.0); Mean Corpuscular Hemoglobin 26.2 pg (27.0-31.0); Mean Corpuscular Volume 82.2 fL (78.0-98.0); Mean Platelet Volume 7.7 fL (7.4-10.4); Platelet Count 268 thou/uL (130-400); RBC Distribution Width 16.4 % (11.5-14.5); Red Blood Cell (RBC) Count 4.03 mill/uL (4.20-5.40); White Blood Cell (WBC) Count 9.5 thou/uL (4.8-10.8)
[2019-10-21 17:05] LABS: PTT 35.3 SEC (22.9-36.1); Prothrombin Time 13.2 SEC (12.0-14.7)
[2019-10-21 17:18] LABS: Anion Gap 10 mmol/L (10-20); BUN (Urea Nitrogen) 19 mg/dL (9.8-20.1); Calc. Creatinine Clearance 0 mL/min (70-130); Calcium 8.4 mg/dL (7.8-10.44); Carbon Dioxide 20 mmol/L (23-31); Chloride 114 mmol/L (98-107); Estimated GFR-MDRD 51; Glucose 86 mg/dL (80-115); Potassium 4.3 mmol/L (3.5-5.1); Sodium 140 mmol/L (136-145)
== END 2019-10-21 07:46 | disposition home or self-care (01) ==
LOC: LABBT 07:45
PROVIDERS: ATTEND Urology
DX: Z01.812 Encounter for preprocedural laboratory examination (principal); N20.0 Calculus of kidney
CPT/HCPCS: 80048; 85027; 85610; 85730; 86850; 86870; 86900; 86901; 86905

== ENCOUNTER → 2019-10-24 | Day surgery (SDC) | payer MEDICARE, BC ==
[2019-10-23 09:55] VITALS: BMI 27.6
[~2019-10-24] MED LIST: FLU VACC TS2019-20(65YR UP)/PF 180 MCG/0.5 ML SYRINGE IM ONE; Prevnar 13-Val Conj/PF 0.5 ML SYRINGE IM ONE
== END ==
LOC: SPEC 06:38
PROVIDERS: ATTEND Urology
DX: N20.0 Calculus of kidney (principal); M19.90 Unspecified osteoarthritis, unspecified site; I48.91 Unspecified atrial fibrillation; I25.10 Atherosclerotic heart disease of native coronary artery without angina pectoris; I11.0 Hypertensive heart disease with heart failure; I50.9 Heart failure, unspecified; F41.9 Anxiety disorder, unspecified; F32.9 Major depressive disorder, single episode, unspecified; M79.7 Fibromyalgia; E03.9 Hypothyroidism, unspecified; K21.9 Gastro-esophageal reflux disease without esophagitis; Z87.891 Personal history of nicotine dependence; Z79.899 Other long term (current) drug therapy; Z88.0 Allergy status to penicillin; Z88.1 Allergy status to other antibiotic agents; Z88.2 Allergy status to sulfonamides; Z88.8 Allergy status to other drugs, medicaments and biological substances; Z91.02 Food additives allergy status; Z95.5 Presence of coronary angioplasty implant and graft
CPT/HCPCS: J1956

== ENCOUNTER 2020-02-12 08:02 | Emergency (ER) | payer MEDICARE, BC ==
[2020-02-12 09:07] LABS: #Eosinphils 0.1 thou/uL (0.0-0.7); #Lymphocytes 2.2 thou/uL (1.20-3.40); #Monocytes 0.7 thou/uL (0.11-0.59); #Neutrophils 5.9 thou/uL (1.40-6.50); %Basophils 0.1 % (0.0-1.0); %Eosinophils 1.6 % (0.0-10.0); %Lymphocytes 24.9 % (21.0-51.0); %Monocytes 7.4 % (0.0-10.0); %Neutrophils 65.9 % (42.0-75.0); Hemoglobin 12.6 g/dL (12.0-16.0); Mean Corpuscular HGB CONC 30.6 g/dL (32.0-36.0); Mean Corpuscular Hemoglobin 26.8 pg (27.0-31.0); Mean Corpuscular Volume 87.4 fL (78.0-98.0); Mean Platelet Volume 7.6 fL (7.4-10.4); Platelet Count 241 thou/uL (130-400); RBC Distribution Width 16.1 % (11.5-14.5); White Blood Cell (WBC) Count 8.9 thou/uL (4.8-10.8)
[2020-02-12 09:19] LABS: ALT (SGPT) 10 U/L (8-55); AST (SGOT) 16 U/L (5-34); Albumin 3.5 g/dL (3.4-4.8); Alkaline Phosphatase 71 U/L (40-110); Anion Gap 13 mmol/L (10-20); BUN (Urea Nitrogen) 14 mg/dL (9.8-20.1); Bilirubin, Total 0.3 mg/dL (0.2-1.2); CK (CPK) 23 U/L (29-168); Calc. Creatinine Clearance 0 mL/min (70-130); Carbon Dioxide 22 mmol/L (23-31); Chloride 111 mmol/L (98-107); Estimated GFR-MDRD 49; Glucose 95 mg/dL (80-115); Potassium 4.4 mmol/L (3.5-5.1); Protein, Total 6.5 g/dL (6.0-8.3); Sodium 142 mmol/L (136-145)
--- NOTE | 2020-02-12 09:28 | CT ---
CT BRAIN WITHOUT CONTRAST: Date: 02/12/2020 HISTORY: Slurred speech, inability to walk. COMPARISON: 03/29/2019. FINDINGS: Changes of mild chronic small vessel ischemic disease are again seen. The ventricular size is stable and the basilar cisterns are patent. Tiny old lacunar infarction in the left basal ganglia is again s een. No evidence of acute infarct, hemorrhage, midline shift, or abnormal extra-axial fluid collectio ns are noted. The bony calvarium is intact. The visualized paranasal sinuses and mastoid air cells ar e well aerated. IMPRESSION: No CT evidence of acute intracranial process. POS: [facility]
[2020-02-12 09:33] LABS: Bilirubin Negative (Negative); Blood, Urine Negative (Negative); Clarity Clear (Clear); Glucose, Urine (Dipstick) Normal (Negative); Ketone, Urine Negative (Negative); Leukocyte 250 Leu/uL (Negative); Nitrite Negative (Negative); Protein, Urine (Dipstick) Negative (Neg-Trace); Specific Gravity, Urine 1.004 (1.002-1.036); Squamous Epithelial 0-3 HPF (0-3); Urobilinogen Normal mg/dL (Less than 2)
[2020-02-12 09:38] LABS: Bacteria/HPF 1+ HPF (None Seen)
== END 2020-02-12 12:13 | disposition home or self-care (01) ==
LOC: ERS 08:02
DX: N39.0 Urinary tract infection, site not specified (principal); R47.81 Slurred speech; I50.9 Heart failure, unspecified; I48.91 Unspecified atrial fibrillation; M19.90 Unspecified osteoarthritis, unspecified site; E03.9 Hypothyroidism, unspecified; F41.9 Anxiety disorder, unspecified; F32.9 Major depressive disorder, single episode, unspecified
CPT/HCPCS: 36415; 70450; 80053; 81003; 81015; 82550; 84484; 85025; 87086; 93005

== ENCOUNTER 2020-02-29 12:42 | Emergency (ER) | payer MEDICARE, BC ==
[2020-02-29 13:39] LABS: Bilirubin Negative (Negative); Blood, Urine Negative (Negative); Clarity Clear (Clear); Glucose, Urine (Dipstick) Normal (Negative); Ketone, Urine Negative (Negative); Leukocyte 500 Leu/uL (Negative); Nitrite Negative (Negative); Protein, Urine (Dipstick) 30 mg/dL (Neg-Trace); Specific Gravity, Urine 1.032 (1.002-1.036); pH, Urine 5.5 (5.0-9.0)
[2020-02-29 13:50] LABS: WBC/HPF 21-50 HPF (0-3)
[2020-02-29 13:51] LABS: Bacteria/HPF Rare-Few HPF (None Seen); Renal Epithelial 0-3 HPF (None Seen); Transitional Epithelial 0-3 HPF (None Seen)
[2020-02-29] MEDS ORDERED: HYDROcodone/Acetaminophen 10/325 mg Tablet ONE (13:54)
[2020-02-29 13:55] LABS: #Eosinphils 0.2 thou/uL (0.0-0.7); #Lymphocytes 2.3 thou/uL (1.20-3.40); #Monocytes 0.7 thou/uL (0.11-0.59); #Neutrophils 3.6 thou/uL (1.40-6.50); %Basophils 0.4 % (0.0-1.0); %Eosinophils 3.6 % (0.0-10.0); %Monocytes 10.1 % (0.0-10.0); %Neutrophils 52.9 % (42.0-75.0); Hemoglobin 11.1 g/dL (12.0-16.0); Mean Corpuscular HGB CONC 31.7 g/dL (32.0-36.0); Mean Corpuscular Hemoglobin 27.7 pg (27.0-31.0); Mean Corpuscular Volume 87.3 fL (78.0-98.0); Mean Platelet Volume 7.6 fL (7.4-10.4); Platelet Count 236 thou/uL (130-400); RBC Distribution Width 15.2 % (11.5-14.5); Red Blood Cell (RBC) Count 4.02 mill/uL (4.20-5.40); White Blood Cell (WBC) Count 6.9 thou/uL (4.8-10.8)
[2020-02-29 14:17] LABS: ALT (SGPT) 8 U/L (8-55); AST (SGOT) 13 U/L (5-34); Albumin 3.2 g/dL (3.4-4.8); Alkaline Phosphatase 64 U/L (40-110); Anion Gap 11 mmol/L (10-20); BUN (Urea Nitrogen) 21 mg/dL (9.8-20.1); Bilirubin, Total 0.2 mg/dL (0.2-1.2); Calc. Creatinine Clearance 0 mL/min (70-130); Calcium 8.3 mg/dL (7.8-10.44); Carbon Dioxide 22 mmol/L (23-31); Chloride 112 mmol/L (98-107); Estimated GFR-MDRD 48; Globulin 2.6 g/dL (2.4-3.5); Glucose 90 mg/dL (80-115); Potassium 4.3 mmol/L (3.5-5.1); Protein, Total 5.8 g/dL (6.0-8.3); Sodium 141 mmol/L (136-145)
--- NOTE | 2020-02-29 14:38 | RAD ---
LUMBAR SPINE SERIES THREE VIEWS: 02/29/20 HISTORY: Continued low back pain. The bones are diffusely demineralized. Vertebral bodies maintain relatively normal height. Some minim al cupping to the end plates in the upper lumbar spine. No signs of any wedge shaped compression frac ture. Degenerative changes are seen with disc narrowing most pronounced at L3-4. Pedicles appear inta ct. IMPRESSION: 1. No definite cute changes. Generalized bony demineralization and mild arthritic changes of the spine. 2. Incidental note is made of bilateral renal calculi. POS: [facility]
[2020-02-29] MEDS ORDERED: methylPREDNISolone Sod Succ 40 MG VIAL ONE (15:36)
== END 2020-02-29 15:45 | disposition home or self-care (01) ==
LOC: ERS 12:42
DX: M54.5 Low back pain (principal); M62.81 Muscle weakness (generalized); I48.91 Unspecified atrial fibrillation; M81.0 Age-related osteoporosis without current pathological fracture; F41.9 Anxiety disorder, unspecified; F32.9 Major depressive disorder, single episode, unspecified; I50.9 Heart failure, unspecified; Z79.899 Other long term (current) drug therapy
CPT/HCPCS: 36415; 51701; 72100; 80053; 81003; 81015; 85025; 87086; 96374; J2920

== ENCOUNTER 2020-05-08 09:12 | Outpatient (CLI) | payer MEDICARE, BC, OTHER ==
[2020-05-08 19:47] LABS: SARS-CoV-2 MS2 Positive; SARS-CoV-2 N Gene Negative; SARS-CoV-2 S Gene Negative; SARS-CoV-2 by NAA Not Detected (NotDetected); SARS-CoV-2 orf1ab Negative
== END 2020-05-08 09:13 | disposition home or self-care (01) ==
LOC: LABBT 09:12
PROVIDERS: ATTEND Psychiatry & Neurology Neurology
DX: Z20.828 Contact with and (suspected) exposure to other viral communicable diseases (principal)
CPT/HCPCS: 87635; U0003

== ENCOUNTER 2020-05-11 10:48 | Day surgery (SDC) | payer MEDICARE, BC ==
[2020-05-08 11:07] VITALS: BMI 28.3
[~2020-05-11 10:48] MED LIST changes: -FLU VACC TS2019-20(65YR UP)/PF 180 MCG/0.5 ML SYRINGE IM ONE; +Magnevist 469MG/ML 20 ML VIAL ONE; +PROPOFOL 200 MG/20 ML VIAL ONE; -Prevnar 13-Val Conj/PF 0.5 ML SYRINGE IM ONE
--- NOTE | 2020-05-11 12:47 | MRI ---
MRI BRAIN NONCONTRAST: DATE: 05/11/2020 HISTORY: 70-year-old female with "encephalopathy. " No other information available FINDINGS: There is no obstructive hydrocephalus. There is no midline shift or any other evidence of mass effect . There is no extra-axial fluid collection. There are mild chronic ischemic white matter changes due to microvascular atherosclerosis. There is otherwise no major intra-axial signal abnormality, rec ent hemorrhage, or restricted diffusion. There is a small 13 x 6 x 10 mm left temporal meningioma. It has minimally grown since 08/19/2015. It causes no adjacent vasogenic edema upon the operculum of t he left temporal lobe. IMPRESSION: 1) mild chronic ischemic white matter changes. 2) incidental finding of a small left temporal meningioma. 3) otherwise negative
== END 2020-05-11 13:50 | disposition home or self-care (01) ==
LOC: SDC/OP 10:48
PROVIDERS: ATTEND Psychiatry & Neurology Neurology
DX: G93.40 Encephalopathy, unspecified (principal); Z79.899 Other long term (current) drug therapy; Z88.0 Allergy status to penicillin; Z88.1 Allergy status to other antibiotic agents; Z88.2 Allergy status to sulfonamides; Z88.8 Allergy status to other drugs, medicaments and biological substances; Z91.018 Allergy to other foods
CPT/HCPCS: 70553; 82565; A9579; J2704

== ENCOUNTER 2020-09-20 17:04 | Inpatient (IN) | payer MEDICARE, BC ==
[~2020-09-20 17:04] MED LIST changes: -Magnevist 469MG/ML 20 ML VIAL ONE; -PROPOFOL 200 MG/20 ML VIAL ONE; +Rocuronium Bromide 10 MG/ML (10ML VIAL) ONE
[2020-09-20 17:44] LABS: INR-International Normal Ratio 1.4
[2020-09-20 17:45] LABS: PTT 38.5 sec (22.9-36.1)
[2020-09-20 17:54] LABS: ALT (SGPT) 24 U/L (8-55); AST (SGOT) 54 U/L (5-34); Alkaline Phosphatase 57 U/L (40-110); Anion Gap 16 mmol/L (10-20); BUN (Urea Nitrogen) 29 mg/dL (9.8-20.1); Bilirubin, Total 1.2 mg/dL (0.2-1.2); CK (CPK) 825 U/L (29-168); Calc. Creatinine Clearance 0 mL/min (70-130); Calcium 8.2 mg/dL (7.8-10.44); Carbon Dioxide 16 mmol/L (23-31); Chloride 111 mmol/L (98-107); Globulin 2.5 g/dL (2.4-3.5); Glucose 84 mg/dL (83-110); Lipase 10 U/L (8-78); Potassium 3.9 mmol/L (3.5-5.1); Protein, Total 5.5 g/dL (5.8-8.1); Sodium 139 mmol/L (136-145)
[2020-09-20] MEDS ORDERED: Cefepime 2 GM VIAL ONE (18:09)
[2020-09-20] MEDS ORDERED: Sodium Chloride 0.9% 100 ML ONE (18:09)
[2020-09-20 18:15] LABS: CKMB 2.6 ng/mL (0-6.6)
[2020-09-20 18:18] LABS: Hemoglobin 8.4 g/dL (12.0-16.0); Mean Corpuscular HGB CONC 31.3 g/dL (32.0-36.0); Mean Platelet Volume 8.3 fL (7.4-10.4); Platelet Count 163 thou/uL (130-400); RBC Distribution Width 17.1 % (11.5-14.5); Red Blood Cell (RBC) Count 2.46 mill/uL (4.20-5.40); White Blood Cell (WBC) Count 10.2 thou/uL (4.8-10.8)
[2020-09-20 18:27] LABS: Bilirubin Negative (Negative); Blood, Urine 1+ (Negative); Clarity Turbid (Clear); Glucose, Urine (Dipstick) Normal (Negative); Ketone, Urine 10 mg/dL (Negative); Leukocyte 250 Leu/uL (Negative); Nitrite Negative (Negative); Protein, Urine (Dipstick) 100 mg/dL (Neg-Trace); Specific Gravity, Urine 1.023 (1.002-1.036); Squamous Epithelial 0-3 HPF (0-3); WBC/HPF 21-50 HPF (0-3); pH, Urine 5.5 (5.0-9.0)
[2020-09-20 18:28] LABS: Unclassified Crystals Rare HPF (None Seen)
[2020-09-20 18:32] LABS: Yeast-Budding None Seen HPF (None Seen)
[2020-09-20 18:34] LABS: Bacteria/HPF 2+ HPF (None Seen)
[2020-09-20 18:51] LABS: Band 13 % (5-11); Hypochromia SLIGHT = 6-15 cells (100X) (0-5/hpf); Lymphocytes 16 % (21-51); MDiff Complete? YES; Macrocytosis MODERATE=16-30 cells (100X) (0-5/hpf); Metamyelocyte 14 % (0-0); Monocytes 13 % (0-10); Myelocyte 3 % (0-0); Neutrophil 36 % (42-75); Nucleated RBC 1 % (0); Platelet Morphology Comment Appears Adequate; Polychromasia SLIGHT = 2-3 cells (100X) (0-2/hpf); Reactive Lymphocytes 2 % (0-10); Reflex for Review?? YES; Schistocytes SLIGHT = 2-5 cells (100X) (0-1/hpf)
[2020-09-20] MEDS ORDERED: Aspirin Chewable 81 MG TAB ONE (19:24)
[2020-09-20] MEDS ORDERED: Vancomycin 1 GM/200 ML BAG ONE (19:33)
[2020-09-20] MEDS ORDERED: Acetaminophen 500 MG TAB ONE (19:33)
[2020-09-20 19:34] LABS: Differential Comment Immature Cell(s)
[2020-09-20 21:22] LABS: Hemoglobin 7.4 g/dL (12.0-16.0)
[2020-09-20 21:26] LABS: Lactic Acid 1.3 mmol/L (0.5-2.2)
[2020-09-20 21:34] LABS: Troponin I 0.071 ng/mL (< 0.028)
[2020-09-20] MEDS: Famotidine/PF 20 mg/2ml Vial SLOW IVP SCH (22:57)
[2020-09-20] MEDS: Dextrose 5 %-0.45 % NaCl 1,000 ML IV SCH (23:30)
[2020-09-21 00:08] LABS: Troponin I 0.067 ng/mL (< 0.028)
[2020-09-21] MEDS ORDERED: Acetaminophen 325 MG TAB ONE (09:00)
[2020-09-21] MEDS ORDERED: Vancomycin HCl 750 MG VIAL ONE (09:00)
[2020-09-21] MEDS ORDERED: Famotidine/PF 20 mg/2ml Vial ONE ×2 (09:00→12:07)
[2020-09-21] MEDS ORDERED: Sodium Chloride 0.9% 250 Advantage ONE (09:00)
[2020-09-21] MEDS ORDERED: Cefepime 2 GM in Sodium Chloride 0.9% 100 ML IVPB SCH (14:00)
[2020-09-21] MEDS ORDERED: Ibuprofen 600 MG TAB PO PRN (14:17)
[2020-09-21 14:25] LABS: Ferritin 1302.02 ng/mL (10-291)
[2020-09-21] MEDS: Vancomycin HCl 750 MG in Sodium Chloride 0.9% 250 ML 250 ML IVPB SCH ×2 (14:52→21:08)
[2020-09-21 14:53] LABS: Anion Gap 13 mmol/L (10-20); BUN (Urea Nitrogen) 29 mg/dL (9.8-20.1); Calc. Creatinine Clearance 63 mL/min (70-130); Calcium 7.2 mg/dL (7.8-10.44); Carbon Dioxide 14 mmol/L (23-31); Chloride 116 mmol/L (98-107); Glucose 101 mg/dL (83-110); Iron 23 ug/dL (50-170); Iron Binding Capacity, Total 115 mcg/dL (265-497); Potassium 3.6 mmol/L (3.5-5.1); Sodium 139 mmol/L (136-145)
[2020-09-21] MEDS: Famotidine/PF 20 mg/2ml Vial SLOW IVP SCH ×2 (14:53→21:08)
[2020-09-21 15:44] LABS: SARS-CoV-2 NAA Rapid Test Not Detected (NotDetected)
[2020-09-21] MEDS: Acetaminophen 325 MG TAB PO PRN ×2 (16:04→21:08)
[2020-09-21 18:26] LABS: Anion Gap 14 mmol/L (10-20); BUN (Urea Nitrogen) 27 mg/dL (9.8-20.1); Calc. Creatinine Clearance 66 mL/min (70-130); Calcium 7.8 mg/dL (7.8-10.44); Carbon Dioxide 16 mmol/L (23-31); Chloride 115 mmol/L (98-107); Glucose 119 mg/dL (83-110); Potassium 3.6 mmol/L (3.5-5.1); Sodium 141 mmol/L (136-145)
[2020-09-21 18:27] LABS: Digoxin Less than 0.15 ng/mL (0.8-2.0)
[2020-09-21 18:28] LABS: Iron 23 ug/dL (50-170); Iron Binding Capacity, Total 115 mcg/dL (265-497)
[2020-09-21] MEDS ORDERED: Digoxin 0.125 MG TAB PO SCH (21:00)
[2020-09-21] MEDS: Dextrose 5 %-0.45 % NaCl 1,000 ML IV SCH (21:07)
[2020-09-21] MEDS: Carvedilol 25 MG TAB PO SCH (21:09)
[2020-09-21] MEDS: OLANZapine 5 MG TAB PO SCH (21:23)
[2020-09-22 00:18] LABS: Anisocytosis SLIGHT = 6-15 cells (100X) (0-5/hpf); Band 26 % (5-11); Eosinophils 1 % (0-10); Lymphocytes 35 % (21-51); MDiff Complete? YES; Mean Corpuscular HGB CONC 31.5 g/dL (32.0-36.0); Mean Corpuscular Hemoglobin 34.7 pg (27.0-31.0); Monocytes 3 % (0-10); Neutrophil 35 % (42-75); Ovalocytes SLIGHT = 2-5 cells (100X) (0-1/hpf); Platelet Count 112 thou/uL (130-400); Platelet Morphology Comment Appears Adequate; RBC Distribution Width 16.9 % (11.5-14.5); Red Blood Cell (RBC) Count 2.02 mill/uL (4.20-5.40); White Blood Cell (WBC) Count 6.1 thou/uL (4.8-10.8)
[2020-09-22 01:03] LABS: Hemoglobin 7.9 g/dL (12.0-16.0)
[2020-09-22] MEDS ORDERED: Lidocaine 2% Viscous Solution 10 ML, Aluminum & Magnesium Hydroxide 30 ML SSW SCH (03:00)
[2020-09-22] MEDS: Levothyroxine Sodium 125 MCG TAB PO SCH (06:04)
[2020-09-22 08:08] LABS: Vancomycin, Trough 11.7 ug/mL
[2020-09-22] MEDS: Carvedilol 25 MG TAB PO SCH (08:23)
[2020-09-22] MEDS: Vancomycin HCl 750 MG in Sodium Chloride 0.9% 250 ML 250 ML IVPB SCH (08:23)
[2020-09-22] MEDS: Acetaminophen 325 MG TAB PO PRN (08:25)
[2020-09-22] MEDS: Vancomycin 1 GM in Premix Bag 1 BAG IVPB SCH ×2 (08:49→20:06)
[2020-09-22] MEDS ORDERED: TRAMADOL HCL 300 MG PO SCH (09:00)
[2020-09-22 09:58] LABS: ALT (SGPT) 19 U/L (8-55); AST (SGOT) 25 U/L (5-34); Albumin 2.4 g/dL (3.4-4.8); Alkaline Phosphatase 58 U/L (40-110); Anion Gap 11 mmol/L (10-20); BUN (Urea Nitrogen) 23 mg/dL (9.8-20.1); Bilirubin, Total 0.4 mg/dL (0.2-1.2); Calc. Creatinine Clearance 72 mL/min (70-130); Calcium 7.8 mg/dL (7.8-10.44); Carbon Dioxide 14 mmol/L (23-31); Chloride 119 mmol/L (98-107); Globulin 2.3 g/dL (2.4-3.5); Glucose 122 mg/dL (83-110); Potassium 3.4 mmol/L (3.5-5.1); Protein, Total 4.7 g/dL (5.8-8.1); Sodium 141 mmol/L (136-145)
[2020-09-22] MEDS ORDERED: Iopamidol-370 76% 500 ML 1 ML ONE (12:18)
[2020-09-22 14:30] LABS: Hemoglobin 5.9 g/dL (12.0-16.0); Mean Corpuscular HGB CONC 32.2 g/dL (32.0-36.0); Mean Corpuscular Hemoglobin 36.3 pg (27.0-31.0); Mean Platelet Volume 9.2 fL (7.4-10.4); Platelet Count 103 thou/uL (130-400); RBC Distribution Width 16.6 % (11.5-14.5); Red Blood Cell (RBC) Count 1.64 mill/uL (4.20-5.40); White Blood Cell (WBC) Count 11.4 thou/uL (4.8-10.8)
[2020-09-22] MEDS ORDERED: Ventilator Sedation Protocol 1 EACH FS ONE (14:34)
[2020-09-22 14:37] LABS: Actual Bicarbonate (HCO3a) 14.6 mEq/L (22-28); CO2 Tension 26.7 mmHg (35.0-45.0); Calcium, Ionized (arterial) 1.15 mmol/L (1.12-1.30); Carboxyhemoglobin (COHb) 0.2 gm% (0.0-3.0); O2 Tension (PaO2), arterial 231.9 mmHg (> 70.0); Potassium - ABG Lab 3.48 mmol/L (3.70-5.30); pH, Arterial 7.36 (7.35-7.45)
[2020-09-22 14:49] LABS: Hemoglobin (Hb) 5.8 g/dL (12.0-16.0); Puncture Site RRA
[2020-09-22 14:50] LABS: ALV-art Gradient 233.825 mmHg (0-20)
[2020-09-22 15:18] LABS: Band 55 % (5-11); CKMB 2.9 ng/mL (0-6.6); Eosinophils 3 % (0-10); Lymphocytes 9 % (21-51); Metamyelocyte 3 % (0-0); Monocytes 4 % (0-10); Myelocyte 3 % (0-0); Neutrophil 12 % (42-75); Nucleated RBC 1 % (0); Reactive Lymphocytes 10 % (0-10)
[2020-09-22 15:19] LABS: Polychromasia SLIGHT = 2-3 cells (100X) (0-2/hpf); Schistocytes SLIGHT = 2-5 cells (100X) (0-1/hpf); Tear Drops SLIGHT = 2-5 cells (100X) (0-1/hpf)
[2020-09-22 15:20] LABS: Anisocytosis SLIGHT = 6-15 cells (100X) (0-5/hpf); Macrocytosis SLIGHT = 6-15 cells (100X) (0-5/hpf); Platelet Morphology Comment Appears Decreased
[2020-09-22 15:21] LABS: MDiff Complete? YES
[2020-09-22 15:28] LABS: INR-International Normal Ratio 1.6; Prothrombin Time 19.2 sec (12.0-14.7)
[2020-09-22] MEDS ORDERED: Propofol BOLUS 1,000 MG/100 ML VIAL IV PRN (16:30)
[2020-09-22] MEDS ORDERED: Fentanyl BOLUS 250 ML IVPB PRN (16:30)
[2020-09-22] MEDS ORDERED: Propofol 1,000 MG/100 ML VIAL IV PRN (16:30)
[2020-09-22] MEDS ORDERED: Lorazepam 2 MG/ML VIAL SLOW IVP PRN (16:30)
[2020-09-22] MEDS ORDERED: DISCONTINUE PREVIOUS NARCOTIC PAIN MEDICATIONS AND BENZODIAZEPINES FS SCH (16:30)
[2020-09-22] MEDS ORDERED: Morphine 2 MG/ML VIAL SLOW IVP PRN (16:30)
[2020-09-22] MEDS ORDERED: Atropine Sulfate 1 mg/10 ml Syringe ONE (17:03)
[2020-09-22] MEDS ORDERED: Sodium Bicarb 50 MEQ/50 ML Abboject 8.4% SYRINGE ONE (17:03)
[2020-09-22] MEDS ORDERED: EPINEPHrine 1 MG/10 ML Abboject SYRINGE ONE (17:03)
[2020-09-22] MEDS ORDERED: Fentanyl CADD 100 ML ONE (17:21)
[2020-09-22] MEDS: Dextrose 5 %-0.45 % NaCl 1,000 ML IV SCH (17:34)
[2020-09-22] MEDS: Sodium Chloride 0.9% 1,000 ML IV SCH (17:35)
[2020-09-22 20:50] LABS: Hemoglobin 8.6 g/dL (12.0-16.0)
[2020-09-22] MEDS: OLANZapine 5 MG TAB PO SCH (22:02)
[2020-09-23] MEDS: Sodium Chloride 0.9% 1,000 ML IV SCH (04:48)
[2020-09-23] MEDS: Levothyroxine Sodium 125 MCG TAB PO SCH (05:02)
[2020-09-23] MEDS: Acetaminophen 650 MG Suppository PR PRN ×2 (06:24→11:41)
[2020-09-23] MEDS: Vancomycin 1 GM in Premix Bag 1 BAG IVPB SCH ×2 (09:01→21:52)
[2020-09-23 10:03] LABS: Hemoglobin 7.7 g/dL (12.0-16.0); Mean Corpuscular HGB CONC 33.2 g/dL (32.0-36.0); Mean Corpuscular Hemoglobin 33.1 pg (27.0-31.0); Mean Corpuscular Volume 99.7 fL (78.0-98.0); Mean Platelet Volume 6.6 fL (7.4-10.4); Platelet Count 82 thou/uL (130-400); RBC Distribution Width 18.3 % (11.5-14.5); Red Blood Cell (RBC) Count 2.32 mill/uL (4.20-5.40); White Blood Cell (WBC) Count 8.6 thou/uL (4.8-10.8)
[2020-09-23 10:29] LABS: Anion Gap 15 mmol/L (10-20); BUN (Urea Nitrogen) 32 mg/dL (9.8-20.1); Calc. Creatinine Clearance 49 mL/min (70-130); Calcium 7.2 mg/dL (7.8-10.44); Carbon Dioxide 13 mmol/L (23-31); Chloride 120 mmol/L (98-107); Glucose 118 mg/dL (83-110); Potassium 3.8 mmol/L (3.5-5.1); Sodium 144 mmol/L (136-145)
[2020-09-23 10:33] LABS: Band 19 % (5-11); Lymphocytes 25 % (21-51); MDiff Complete? YES; Monocytes 4 % (0-10); Myelocyte 5 % (0-0); Neutrophil 43 % (42-75); Nucleated RBC 2 % (0); Ovalocytes SLIGHT = 2-5 cells (100X) (0-1/hpf); Platelet Morphology Comment Appears Decreased; Polychromasia MODERATE = 3-4 cells (100X) (0-2/hpf); Reactive Lymphocytes 3 % (0-10); Schistocytes SLIGHT = 2-5 cells (100X) (0-1/hpf)
[2020-09-23] MEDS: D5 1/4 NS 1,000 ML IV SCH ×2 (10:34→18:36)
[2020-09-23] MEDS: OLANZapine 5 MG TAB PO SCH (21:51)
[2020-09-24] MEDS: D5 1/4 NS 1,000 ML IV SCH ×3 (02:51→22:50)
[2020-09-24 05:07] LABS: Anion Gap 10 mmol/L (10-20); BUN (Urea Nitrogen) 35 mg/dL (9.8-20.1); Calc. Creatinine Clearance 50 mL/min (70-130); Calcium 7.4 mg/dL (7.8-10.44); Carbon Dioxide 18 mmol/L (23-31); Chloride 118 mmol/L (98-107); Glucose 128 mg/dL (83-110); Potassium 3.5 mmol/L (3.5-5.1); Sodium 142 mmol/L (136-145)
[2020-09-24 05:33] LABS: Anisocytosis SLIGHT = 6-15 cells (100X) (0-5/hpf); Band 29 % (5-11); Eosinophils 2 % (0-10); Hemoglobin 6.2 g/dL (12.0-16.0); Lymphocytes 10 % (21-51); MDiff Complete? YES; Mean Corpuscular Hemoglobin 33.1 pg (27.0-31.0); Mean Platelet Volume 9.6 fL (7.4-10.4); Monocytes 3 % (0-10); Neutrophil 56 % (42-75); Platelet Count 68 thou/uL (130-400); Platelet Morphology Comment Appears Decreased; RBC Distribution Width 17.7 % (11.5-14.5); Red Blood Cell (RBC) Count 1.88 mill/uL (4.20-5.40); White Blood Cell (WBC) Count 8.1 thou/uL (4.8-10.8)
[2020-09-24] MEDS: Levothyroxine Sodium 125 MCG TAB PO SCH (05:35)
[2020-09-24] MEDS ORDERED: Fentanyl CADD 100 ML ONE (06:26)
[2020-09-24] MEDS: Fentanyl CADD 100 ML IV SCH (06:57)
[2020-09-24] MEDS ORDERED: levETIRAcetam in NS 1,000 MG in Premix Bag 1 BAG IVPB SCH (15:45)
[2020-09-24] MEDS: OLANZapine 5 MG TAB PO SCH (19:26)
[2020-09-24] MEDS ORDERED: Vancomycin 1 GM in Premix Bag 1 BAG IVPB SCH (20:00)
[2020-09-24] MEDS ORDERED: Electrolyte Replacement Protocol FS SCH (20:00)
[2020-09-24 21:13] LABS: Vancomycin, Random 16.4 ug/mL (See Comment)
[2020-09-24] MEDS: Vancomycin HCl 1.5 GM in Sodium Chloride 0.9% 250 ML 300 ML IVPB SCH (22:50)
[2020-09-24] MEDS ORDERED: Vancomycin 1.5 GRAM/300 ML BAG 1.5 GM in Premix Bag 1 BAG IVPB SCH (23:00)
[2020-09-25] MEDS: levETIRAcetam in NS 500 MG in Premix Bag 1 BAG IVPB SCH ×2 (03:45→18:09)
[2020-09-25 04:29] LABS: Phosphorus 2.2 mg/dL (2.3-4.7)
[2020-09-25 04:34] LABS: Anion Gap 11 mmol/L (10-20); BUN (Urea Nitrogen) 33 mg/dL (9.8-20.1); Calc. Creatinine Clearance 62 mL/min (70-130); Calcium 7.4 mg/dL (7.8-10.44); Carbon Dioxide 16 mmol/L (23-31); Chloride 112 mmol/L (98-107); Glucose 144 mg/dL (83-110); Magnesium 1.8 mg/dL (1.6-2.6); Potassium 3.6 mmol/L (3.5-5.1); Sodium 135 mmol/L (136-145)
[2020-09-25 04:55] LABS: Band 17 % (5-11); Hemoglobin 9.9 g/dL (12.0-16.0); Hypochromia SLIGHT = 6-15 cells (100X) (0-5/hpf); Lymphocytes 28 % (21-51); MDiff Complete? YES; Mean Corpuscular HGB CONC 33.5 g/dL (32.0-36.0); Mean Corpuscular Hemoglobin 31.9 pg (27.0-31.0); Mean Platelet Volume 10.8 fL (7.4-10.4); Metamyelocyte 1 % (0-0); Monocytes 4 % (0-10); Neutrophil 50 % (42-75); Nucleated RBC 8 % (0); Platelet Count 48 thou/uL (130-400); Platelet Morphology Comment Appears Decreased; RBC Distribution Width 17.4 % (11.5-14.5); Red Blood Cell (RBC) Count 3.11 mill/uL (4.20-5.40)
[2020-09-25] MEDS: Levothyroxine Sodium 125 MCG TAB PO SCH (05:27)
[2020-09-25] MEDS ORDERED: Magnesium 2 GM/50 ML 2 GM in Premix Bag 1 BAG IVPB SCH (06:00)
[2020-09-25 06:23] LABS: Actual Bicarbonate (HCO3a) 14.7 mEq/L (22-28); Base Excess (BEa) -9.1 mEq/L (-2.0 to +3.0); Carboxyhemoglobin (COHb) 0.3 gm% (0.0-3.0); Hemoglobin (Hb) 10.4 g/dL (12.0-16.0); O2 Tension (PaO2), arterial 166.6 mmHg (> 70.0); Potassium - ABG Lab 3.55 mmol/L (3.70-5.30); pH, Arterial 7.38 (7.35-7.45)
[2020-09-25 06:25] LABS: CO2 Tension 25.8 mmHg (35.0-45.0)
[2020-09-25] MEDS: D5 1/4 NS 1,000 ML IV SCH ×2 (11:13→18:11)
[2020-09-25] MEDS ORDERED: Scopolamine 1.5 mg/72 hour Patch TD SCH (16:30)
[2020-09-25] MEDS ORDERED: Furosemide 20 MG/2 ML VIAL SLOW IVP SCH (16:30)
[2020-09-25] MEDS ORDERED: Potassium Chloride 40 MEQ in Sodium Chloride 0.9% 250 ML 250 ML IVPB SCH (16:45)
[2020-09-25] MEDS: Acetaminophen 650 MG Suppository PR PRN (18:35)
[2020-09-25] MEDS: Fentanyl CADD 100 ML IV SCH (19:34)
[2020-09-25] MEDS ORDERED: Fentanyl CADD 100 ML ONE (19:49)
[2020-09-25] MEDS: Famotidine/PF 20 mg/2ml Vial SLOW IVP SCH (21:29)
[2020-09-25] MEDS: OLANZapine 5 MG TAB PO SCH (21:30)
[2020-09-26] MEDS: D5 1/4 NS 1,000 ML IV SCH ×3 (00:13→20:43)
[2020-09-26] MEDS: Vancomycin HCl 1.5 GM in Sodium Chloride 0.9% 250 ML 300 ML IVPB SCH (00:16)
[2020-09-26] MEDS: levETIRAcetam in NS 500 MG in Premix Bag 1 BAG IVPB SCH ×2 (04:21→17:40)
[2020-09-26 05:17] LABS: Anion Gap 11 mmol/L (10-20); BUN (Urea Nitrogen) 29 mg/dL (9.8-20.1); Calc. Creatinine Clearance 71 mL/min (70-130); Carbon Dioxide 18 mmol/L (23-31); Chloride 112 mmol/L (98-107); Eosinophils 6 % (0-10); Hemoglobin 9.7 g/dL (12.0-16.0); Lymphocytes 25 % (21-51); MDiff Complete? YES; Mean Corpuscular HGB CONC 33.4 g/dL (32.0-36.0); Mean Corpuscular Hemoglobin 32.1 pg (27.0-31.0); Mean Platelet Volume 11.8 fL (7.4-10.4); Monocytes 1 % (0-10); Myelocyte 1 % (0-0); Neutrophil 67 % (42-75); Platelet Count 48 thou/uL (130-400); Platelet Morphology Comment Appears Decreased; RBC Morphology Normal; Red Blood Cell (RBC) Count 3.03 mill/uL (4.20-5.40); Sodium 137 mmol/L (136-145)
[2020-09-26 05:18] LABS: CK (CPK) 18 U/L (29-168); Calcium 7.3 mg/dL (7.8-10.44); Glucose 111 mg/dL (83-110); Magnesium 1.9 mg/dL (1.6-2.6)
[2020-09-26] MEDS: Levothyroxine Sodium 125 MCG TAB PO SCH (05:51)
[2020-09-26] MEDS ORDERED: Magnesium 2 GM/50 ML 2 GM in Premix Bag 1 BAG IVPB SCH (07:15)
[2020-09-26] MEDS: Famotidine/PF 20 mg/2ml Vial SLOW IVP SCH ×2 (09:42→20:36)
[2020-09-26] MEDS ORDERED: Ventilator Sedation Protocol 1 EACH FS SCH (09:45)
[2020-09-26] MEDS ORDERED: Succinylcholine Chloride 200 MG/10 ML VIAL IVP SCH (09:45)
[2020-09-26] MEDS ORDERED: DISCONTINUE PREVIOUS NARCOTIC PAIN MEDICATIONS AND BENZODIAZEPINES FS SCH (10:15)
[2020-09-26] MEDS ORDERED: fentaNYL Citrate/PF 2,000 MCG in Sodium Chloride 0.9% 60 ML IV SCH (10:15)
[2020-09-26] MEDS ORDERED: Propofol 1,000 MG/100 ML VIAL IV PRN (10:15)
[2020-09-26] MEDS ORDERED: Propofol BOLUS 1,000 MG/100 ML VIAL IV PRN (10:15)
[2020-09-26] MEDS ORDERED: Fentanyl BOLUS 250 ML IVPB PRN (10:15)
[2020-09-26] MEDS: PHOS-NAK 1 PKT PACK PO SCH ×2 (10:38→13:24)
[2020-09-26] MEDS: Saccharomyces boulardii 250 MG CAP PO SCH (10:38)
[2020-09-26] MEDS: methylPREDNISolone Sod Succ 40 MG VIAL IVP SCH ×2 (10:48→17:41)
[2020-09-26] MEDS: OLANZapine 5 MG TAB PO SCH (20:36)
[2020-09-26 22:36] LABS: Vancomycin, Trough 22.6 ug/mL
[2020-09-26] MEDS ORDERED: Fentanyl CADD 100 ML ONE (23:39)
[2020-09-27] MEDS: methylPREDNISolone Sod Succ 40 MG VIAL IVP SCH ×5 (00:01→23:32)
[2020-09-27] MEDS: Vancomycin HCl 1.5 GM in Sodium Chloride 0.9% 250 ML 300 ML IVPB SCH (00:16)
[2020-09-27] MEDS: levETIRAcetam in NS 500 MG in Premix Bag 1 BAG IVPB SCH ×2 (03:23→17:05)
[2020-09-27 04:08] LABS: Anion Gap 12 mmol/L (10-20); BUN (Urea Nitrogen) 27 mg/dL (9.8-20.1); Calc. Creatinine Clearance 75 mL/min (70-130); Calcium 7.3 mg/dL (7.8-10.44); Carbon Dioxide 15 mmol/L (23-31); Chloride 110 mmol/L (98-107); Glucose 187 mg/dL (83-110); Potassium 3.5 mmol/L (3.5-5.1); Sodium 133 mmol/L (136-145)
[2020-09-27 04:13] LABS: Band 15 % (5-11); Hemoglobin 9.8 g/dL (12.0-16.0); Hypochromia SLIGHT = 6-15 cells (100X) (0-5/hpf); Lymphocytes 29 % (21-51); MDiff Complete? YES; Mean Corpuscular HGB CONC 32.5 g/dL (32.0-36.0); Mean Corpuscular Hemoglobin 31.4 pg (27.0-31.0); Mean Corpuscular Volume 96.7 fL (78.0-98.0); Mean Platelet Volume 11.3 fL (7.4-10.4); Metamyelocyte 2 % (0-0); Monocytes 12 % (0-10); Neutrophil 42 % (42-75); Nucleated RBC 5 % (0); Platelet Count 48 thou/uL (130-400); Platelet Morphology Comment Appears Decreased; RBC Distribution Width 17.4 % (11.5-14.5); Red Blood Cell (RBC) Count 3.12 mill/uL (4.20-5.40); White Blood Cell (WBC) Count 9.8 thou/uL (4.8-10.8)
[2020-09-27] MEDS: VANCOMYCIN 1.25 GM/250 ML BAG 1.25 GM in Premix Bag 1 BAG IVPB SCH (05:19)
[2020-09-27] MEDS: Levothyroxine Sodium 125 MCG TAB PO SCH (05:19)
[2020-09-27] MEDS: D5 1/4 NS 1,000 ML IV SCH ×2 (05:53→07:56)
[2020-09-27] MEDS ORDERED: Potassium Chloride 40 MEQ in Sodium Chloride 0.9% 250 ML 250 ML IVPB SCH (06:30)
[2020-09-27] MEDS: Saccharomyces boulardii 250 MG CAP PO SCH (07:55)
[2020-09-27] MEDS: Famotidine/PF 20 mg/2ml Vial SLOW IVP SCH ×2 (07:55→20:46)
[2020-09-27] MEDS ORDERED: Atropine Sulfate 1 mg/10 ml Syringe IVP PRN (08:01)
[2020-09-27] MEDS: Sodium Bicarbonate 70 MEQ in Sodium Chloride 0.45% 1,000 ML IV SCH ×2 (10:21→23:31)
[2020-09-28] MEDS: Acetaminophen 325 MG TAB PO PRN ×2 (01:38→08:58)
[2020-09-28] MEDS: levETIRAcetam in NS 500 MG in Premix Bag 1 BAG IVPB SCH ×2 (04:42→16:41)
[2020-09-28 04:54] LABS: Hemoglobin 10.1 g/dL (12.0-16.0); Mean Corpuscular HGB CONC 33.3 g/dL (32.0-36.0); Mean Corpuscular Hemoglobin 31.8 pg (27.0-31.0); Mean Corpuscular Volume 95.2 fL (78.0-98.0); Mean Platelet Volume 10.7 fL (7.4-10.4); Platelet Count 77 thou/uL (130-400); RBC Distribution Width 16.7 % (11.5-14.5); Red Blood Cell (RBC) Count 3.17 mill/uL (4.20-5.40)
[2020-09-28 05:00] LABS: Anion Gap 12 mmol/L (10-20); BUN (Urea Nitrogen) 32 mg/dL (9.8-20.1); Calc. Creatinine Clearance 75 mL/min (70-130); Calcium 7.7 mg/dL (7.8-10.44); Carbon Dioxide 17 mmol/L (23-31); Chloride 114 mmol/L (98-107); Glucose 132 mg/dL (83-110); Potassium 3.3 mmol/L (3.5-5.1); Sodium 140 mmol/L (136-145)
[2020-09-28 05:19] LABS: Band 17 % (5-11); Eosinophils 1 % (0-10); Lymphocytes 8 % (21-51); MDiff Complete? YES; Metamyelocyte 4 % (0-0); Monocytes 6 % (0-10); Myelocyte 1 % (0-0); Neutrophil 62 % (42-75); Platelet Morphology Comment Appears Decreased; Reactive Lymphocytes 1 % (0-10); White Blood Cell (WBC) Count 20.2 thou/uL (4.8-10.8)
[2020-09-28] MEDS ORDERED: Fentanyl CADD 100 ML ONE (05:41)
[2020-09-28] MEDS ORDERED: Potassium Chloride 40 MEQ in Premix Bag 1 BAG IVPB SCH (05:45)
[2020-09-28] MEDS: Levothyroxine Sodium 125 MCG TAB PO SCH (05:47)
[2020-09-28] MEDS: VANCOMYCIN 1.25 GM/250 ML BAG 1.25 GM in Premix Bag 1 BAG IVPB SCH (05:49)
[2020-09-28] MEDS: methylPREDNISolone Sod Succ 40 MG VIAL IVP SCH ×4 (05:49→23:38)
[2020-09-28 08:13] LABS: Actual Bicarbonate (HCO3a) 16.5 mEq/L (22-28); Base Excess (BEa) -6.4 mEq/L (-2.0 to +3.0); Calcium, Ionized (arterial) 1.21 mmol/L (1.12-1.30); Carboxyhemoglobin (COHb) 0.2 gm% (0.0-3.0); O2 Tension (PaO2), arterial 110.8 mmHg (> 70.0); pH, Arterial 7.44 (7.35-7.45)
[2020-09-28 08:24] LABS: CO2 Tension 24.9 mmHg (35.0-45.0)
[2020-09-28 08:25] LABS: ALV-art Gradient 143.275 mmHg (0-20); Puncture Site RRA
[2020-09-28] MEDS: Saccharomyces boulardii 250 MG CAP PO SCH (08:58)
[2020-09-28] MEDS: Famotidine/PF 20 mg/2ml Vial SLOW IVP SCH ×2 (08:58→20:42)
[2020-09-28] MEDS: MEROPENEM 1 GM/50 ML 1 GM in Premix Bag 1 BAG IVPB SCH ×2 (09:14→16:41)
[2020-09-28] MEDS ORDERED: Scopolamine 1.5 mg/72 hour Patch TOP PRN (11:04)
[2020-09-28] MEDS ORDERED: Spironolactone 25 MG TAB PO SCH (13:30)
[2020-09-28] MEDS ORDERED: Furosemide 20 MG/2 ML VIAL SLOW IVP SCH (13:30)
[2020-09-28] MEDS: Sodium Bicarbonate 70 MEQ in Sodium Chloride 0.45% 1,000 ML IV SCH (15:30)
[2020-09-28] MEDS: hydrALAZINE 20 MG/ML VIAL SLOW IVP PRN (22:28)
[2020-09-29] MEDS: MEROPENEM 1 GM/50 ML 1 GM in Premix Bag 1 BAG IVPB SCH ×2 (00:38→19:32)
[2020-09-29] MEDS: hydrALAZINE 20 MG/ML VIAL SLOW IVP PRN ×2 (03:07→20:11)
[2020-09-29] MEDS: levETIRAcetam in NS 500 MG in Premix Bag 1 BAG IVPB SCH ×2 (04:15→17:11)
[2020-09-29] MEDS: Levothyroxine Sodium 125 MCG TAB PO SCH (05:06)
[2020-09-29] MEDS: methylPREDNISolone Sod Succ 40 MG VIAL IVP SCH ×4 (05:07→23:30)
[2020-09-29] MEDS: VANCOMYCIN 1.25 GM/250 ML BAG 1.25 GM in Premix Bag 1 BAG IVPB SCH (05:07)
[2020-09-29 05:08] LABS: Band 8 % (5-11); Hemoglobin 10.4 g/dL (12.0-16.0); Hypochromia SLIGHT = 6-15 cells (100X) (0-5/hpf); Lymphocytes 29 % (21-51); MDiff Complete? YES; Mean Corpuscular HGB CONC 33.2 g/dL (32.0-36.0); Mean Corpuscular Hemoglobin 31.9 pg (27.0-31.0); Mean Corpuscular Volume 96.1 fL (78.0-98.0); Mean Platelet Volume 11.7 fL (7.4-10.4); Metamyelocyte 1 % (0-0); Monocytes 14 % (0-10); Neutrophil 47 % (42-75); Platelet Count 88 thou/uL (130-400); Platelet Morphology Comment Appears Decreased; Reactive Lymphocytes 1 % (0-10); Red Blood Cell (RBC) Count 3.25 mill/uL (4.20-5.40); White Blood Cell (WBC) Count 21.9 thou/uL (4.8-10.8)
[2020-09-29 05:29] LABS: Vancomycin, Trough 26.2 ug/mL
[2020-09-29 05:34] LABS: Anion Gap 14 mmol/L (10-20); BUN (Urea Nitrogen) 37 mg/dL (9.8-20.1); Calc. Creatinine Clearance 76 mL/min (70-130); Calcium 7.7 mg/dL (7.8-10.44); Carbon Dioxide 19 mmol/L (23-31); Chloride 111 mmol/L (98-107); Glucose 163 mg/dL (83-110); Potassium 3.8 mmol/L (3.5-5.1); Sodium 140 mmol/L (136-145)
[2020-09-29] MEDS: Lorazepam 2 MG/ML VIAL SLOW IVP PRN ×2 (06:48→22:51)
[2020-09-29] MEDS: Spironolactone 25 MG TAB PO SCH (07:39)
[2020-09-29] MEDS: Saccharomyces boulardii 250 MG CAP PO SCH (07:39)
[2020-09-29] MEDS: Famotidine/PF 20 mg/2ml Vial SLOW IVP SCH ×2 (07:39→20:12)
[2020-09-29] MEDS: Meropenem 1 GM in Sodium Chloride 0.9% 100 ML IVPB SCH ×2 (07:40→18:40)
[2020-09-29 08:26] LABS: Actual Bicarbonate (HCO3a) 19.2 mEq/L (22-28); Base Excess (BEa) -3.3 mEq/L (-2.0 to +3.0); CO2 Tension 26.5 mmHg (35.0-45.0); Calcium, Ionized (arterial) 1.19 mmol/L (1.12-1.30); Carboxyhemoglobin (COHb) 0.3 gm% (0.0-3.0); Hemoglobin (Hb) 10.4 g/dL (12.0-16.0); O2 Tension (PaO2), arterial 76.7 mmHg (> 70.0); Potassium - ABG Lab 3.76 mmol/L (3.70-5.30); pH, Arterial 7.48 (7.35-7.45)
[2020-09-29 08:27] LABS: ALV-art Gradient 175.375 mmHg (0-20); Puncture Site RRA
[2020-09-29] MEDS ORDERED: Fentanyl CADD 100 ML ONE (12:23)
[2020-09-29] MEDS ORDERED: Aspirin 81 mg Enteric Coated Tablet PO SCH (16:45)
[2020-09-29] MEDS: Atorvastatin Calcium 40 MG TAB PO SCH (20:11)
[2020-09-30] MEDS: MEROPENEM 1 GM/50 ML 1 GM in Premix Bag 1 BAG IVPB SCH ×3 (04:07→20:50)
[2020-09-30] MEDS: levETIRAcetam in NS 500 MG in Premix Bag 1 BAG IVPB SCH ×2 (04:07→17:37)
[2020-09-30 04:56] LABS: Anion Gap 13 mmol/L (10-20); BUN (Urea Nitrogen) 44 mg/dL (9.8-20.1); Calc. Creatinine Clearance 79 mL/min (70-130); Calcium 7.7 mg/dL (7.8-10.44); Carbon Dioxide 20 mmol/L (23-31); Cardiac Risk 8.7 (Less than 4.5); Chloride 111 mmol/L (98-107); Cholesterol 113 mg/dl (< 200 Desired); Glucose 124 mg/dL (83-110); HDL Cholesterol 13 mg/dL (>60 Neg Risk); LDL Cholesterol, Calculated 51 mg/dL; Potassium 4.1 mmol/L (3.5-5.1); Sodium 140 mmol/L (136-145); Triglycerides 243 mg/dL (Less than 150)
[2020-09-30 05:21] LABS: Band 20 % (5-11); Eosinophils 2 % (0-10); Hemoglobin 9.8 g/dL (12.0-16.0); Lymphocytes 20 % (21-51); MDiff Complete? YES; Mean Corpuscular HGB CONC 32.7 g/dL (32.0-36.0); Mean Corpuscular Hemoglobin 31.6 pg (27.0-31.0); Mean Corpuscular Volume 96.7 fL (78.0-98.0); Mean Platelet Volume 10.7 fL (7.4-10.4); Metamyelocyte 13 % (0-0); Monocytes 1 % (0-10); Myelocyte 9 % (0-0); Neutrophil 35 % (42-75); Platelet Count 84 thou/uL (130-400); Platelet Morphology Comment Appears Decreased; Red Blood Cell (RBC) Count 3.09 mill/uL (4.20-5.40)
[2020-09-30] MEDS: Levothyroxine Sodium 125 MCG TAB PO SCH (05:22)
[2020-09-30] MEDS: methylPREDNISolone Sod Succ 40 MG VIAL IVP SCH ×3 (05:22→17:35)
[2020-09-30 07:38] LABS: Actual Bicarbonate (HCO3a) 20.3 mEq/L (22-28); Base Excess (BEa) -2.4 mEq/L (-2.0 to +3.0); Carboxyhemoglobin (COHb) 0.7 gm% (0.0-3.0); Hemoglobin (Hb) 11.5 g/dL (12.0-16.0); O2 Tension (PaO2), arterial 73.8 mmHg (> 70.0); Potassium - ABG Lab 4.11 mmol/L (3.70-5.30); pH, Arterial 7.46 (7.35-7.45)
[2020-09-30 08:00] LABS: Puncture Site RRA
[2020-09-30] MEDS: Spironolactone 25 MG TAB PO SCH (08:56)
[2020-09-30] MEDS: Saccharomyces boulardii 250 MG CAP PO SCH (08:56)
[2020-09-30] MEDS: Aspirin Chewable 81 MG TAB PO SCH (08:56)
[2020-09-30] MEDS: Famotidine/PF 20 mg/2ml Vial SLOW IVP SCH ×2 (08:56→20:50)
[2020-09-30] MEDS ORDERED: Aspirin 300 MG Suppository PR SCH (09:00)
[2020-09-30] MEDS ORDERED: Rocuronium Bromide 10 MG/ML (10ML VIAL) ONE (09:03)
[2020-09-30] MEDS ORDERED: Ondansetron PF 4 MG/2 ML Vial ONE (09:03)
[2020-09-30] MEDS ORDERED: Dexamethasone 20 MG/5 ML VIAL ONE (09:03)
[2020-09-30] MEDS ORDERED: Fentanyl CADD 100 ML ONE (13:57)
[2020-09-30] MEDS ORDERED: Bupivacaine PF 0.5% 30 ML VIAL ONE (14:48)
[2020-09-30] MEDS ORDERED: Lidocaine 1% w/Epinephrine 1:100K 20 ML VIAL ONE (14:48)
[2020-09-30] MEDS: hydrALAZINE 20 MG/ML VIAL SLOW IVP PRN (15:40)
[2020-09-30] MEDS: Lorazepam 2 MG/ML VIAL SLOW IVP PRN (15:40)
[2020-09-30] MEDS ORDERED: Fentanyl 100 MCG/2 ML VIAL ONE (16:04)
[2020-09-30] MEDS ORDERED: Sodium Chloride 0.9% 0 ML ONE (16:46)
[2020-09-30] MEDS ORDERED: Sodium Chloride 0.9% 20 ML ONE (16:46)
[2020-09-30 19:42] LABS: Anisocytosis SLIGHT = 6-15 cells (100X) (0-5/hpf); Band 20 % (5-11); Blast 1 % (0-0); Eosinophils 2 % (0-10); Hemoglobin 9.9 g/dL (12.0-16.0); Lymphocytes 11 % (21-51); MDiff Complete? YES; Mean Corpuscular HGB CONC 32.4 g/dL (32.0-36.0); Mean Corpuscular Hemoglobin 31.5 pg (27.0-31.0); Mean Corpuscular Volume 97.3 fL (78.0-98.0); Mean Platelet Volume 11.3 fL (7.4-10.4); Metamyelocyte 14 % (0-0); Monocytes 6 % (0-10); Myelocyte 14 % (0-0); Neutrophil 31 % (42-75); Platelet Count 78 thou/uL (130-400); Platelet Morphology Comment Appears Decreased; Polychromasia SLIGHT = 2-3 cells (100X) (0-2/hpf); RBC Distribution Width 17.1 % (11.5-14.5); Reactive Lymphocytes 1 % (0-10); Red Blood Cell (RBC) Count 3.12 mill/uL (4.20-5.40); Reflex for Review?? YES; White Blood Cell (WBC) Count 27.5 thou/uL (4.8-10.8)
[2020-09-30] MEDS: Atorvastatin Calcium 40 MG TAB PO SCH (22:37)
[2020-10-01] MEDS: methylPREDNISolone Sod Succ 40 MG VIAL IVP SCH ×5 (00:20→23:11)
[2020-10-01] MEDS: MEROPENEM 1 GM/50 ML 1 GM in Premix Bag 1 BAG IVPB SCH ×3 (03:37→20:28)
[2020-10-01] MEDS: levETIRAcetam in NS 500 MG in Premix Bag 1 BAG IVPB SCH ×2 (04:32→17:21)
[2020-10-01 04:53] LABS: Anion Gap 12 mmol/L (10-20); BUN (Urea Nitrogen) 43 mg/dL (9.8-20.1); Calc. Creatinine Clearance 74 mL/min (70-130); Carbon Dioxide 22 mmol/L (23-31); Chloride 111 mmol/L (98-107); Glucose 131 mg/dL (83-110); Potassium 4.1 mmol/L (3.5-5.1); Sodium 141 mmol/L (136-145)
[2020-10-01] MEDS: Vancomycin 1 GM in Premix Bag 1 BAG IVPB SCH (06:15)
[2020-10-01] MEDS: Levothyroxine Sodium 125 MCG TAB PO SCH (06:16)
[2020-10-01] MEDS: Spironolactone 25 MG TAB PO SCH (08:50)
[2020-10-01 09:37] LABS: Mean Corpuscular HGB CONC 33.1 g/dL (32.0-36.0); Mean Corpuscular Hemoglobin 32.6 pg (27.0-31.0); Mean Corpuscular Volume 98.5 fL (78.0-98.0); Mean Platelet Volume 10.6 fL (7.4-10.4); Platelet Count 64 thou/uL (130-400); RBC Distribution Width 16.7 % (11.5-14.5); Red Blood Cell (RBC) Count 2.77 mill/uL (4.20-5.40); White Blood Cell (WBC) Count 31.3 thou/uL (4.8-10.8)
[2020-10-01] MEDS: Famotidine/PF 20 mg/2ml Vial SLOW IVP SCH (09:55)
[2020-10-01] MEDS: Aspirin Chewable 81 MG TAB PO SCH (09:56)
[2020-10-01] MEDS: Saccharomyces boulardii 250 MG CAP PO SCH (09:56)
[2020-10-01 10:25] LABS: Band 16 % (5-11); Basophilic Stippling SLIGHT = 1-2 cells (100X) (None Seen); Eosinophils 1 % (0-10); Lymphocytes 6 % (21-51); MDiff Complete? YES; Metamyelocyte 16 % (0-0); Monocytes 11 % (0-10); Myelocyte 22 % (0-0); Neutrophil 28 % (42-75); Platelet Morphology Comment Appears Decreased
[2020-10-01] MEDS: Morphine 2 MG/ML VIAL SLOW IVP PRN ×2 (16:15→20:43)
[2020-10-01] MEDS: Atorvastatin Calcium 40 MG TAB PO SCH (20:28)
[2020-10-02] MEDS: Morphine 2 MG/ML VIAL SLOW IVP PRN ×8 (01:18→21:37)
[2020-10-02] MEDS: Acetaminophen 325 MG TAB PO PRN (01:19)
[2020-10-02 03:53] LABS: Anion Gap 12 mmol/L (10-20); BUN (Urea Nitrogen) 48 mg/dL (9.8-20.1); Calc. Creatinine Clearance 75 mL/min (70-130); Calcium 7.5 mg/dL (7.8-10.44); Carbon Dioxide 22 mmol/L (23-31); Chloride 111 mmol/L (98-107); Glucose 186 mg/dL (83-110); Potassium 4.1 mmol/L (3.5-5.1); Sodium 141 mmol/L (136-145)
[2020-10-02] MEDS: levETIRAcetam in NS 500 MG in Premix Bag 1 BAG IVPB SCH ×2 (03:53→15:56)
[2020-10-02] MEDS: MEROPENEM 1 GM/50 ML 1 GM in Premix Bag 1 BAG IVPB SCH ×3 (04:19→19:58)
[2020-10-02 04:26] LABS: Band 24 % (5-11); Hemoglobin 7.7 g/dL (12.0-16.0); Lymphocytes 11 % (21-51); MDiff Complete? YES; Mean Corpuscular HGB CONC 32.2 g/dL (32.0-36.0); Mean Corpuscular Hemoglobin 31.5 pg (27.0-31.0); Mean Corpuscular Volume 97.8 fL (78.0-98.0); Mean Platelet Volume 11.4 fL (7.4-10.4); Metamyelocyte 7 % (0-0); Monocytes 10 % (0-10); Myelocyte 9 % (0-0); Neutrophil 39 % (42-75); Platelet Count 54 thou/uL (130-400); Platelet Morphology Comment Appears Decreased; RBC Distribution Width 16.9 % (11.5-14.5); Red Blood Cell (RBC) Count 2.45 mill/uL (4.20-5.40); White Blood Cell (WBC) Count 28.4 thou/uL (4.8-10.8)
[2020-10-02] MEDS: Vancomycin 1 GM in Premix Bag 1 BAG IVPB SCH (05:04)
[2020-10-02] MEDS: methylPREDNISolone Sod Succ 40 MG VIAL IVP SCH ×4 (05:04→22:53)
[2020-10-02] MEDS: Levothyroxine Sodium 125 MCG TAB PO SCH (05:04)
[2020-10-02] MEDS: Pantoprazole 40 MG GRANULES PACKET PER TUBE SCH (08:54)
[2020-10-02] MEDS: Aspirin Chewable 81 MG TAB PO SCH (08:54)
[2020-10-02] MEDS: Spironolactone 25 MG TAB PO SCH (08:54)
[2020-10-02] MEDS: Saccharomyces boulardii 250 MG CAP PO SCH (08:55)
[2020-10-02] MEDS ORDERED: Furosemide 40 MG/4 ML VIAL SLOW IVP SCH (10:30)
[2020-10-02] MEDS: Atorvastatin Calcium 40 MG TAB PO SCH (19:56)
[2020-10-03] MEDS: Morphine 2 MG/ML VIAL SLOW IVP PRN ×8 (00:24→22:12)
[2020-10-03] MEDS: MEROPENEM 1 GM/50 ML 1 GM in Premix Bag 1 BAG IVPB SCH ×3 (03:36→20:28)
[2020-10-03] MEDS: levETIRAcetam in NS 500 MG in Premix Bag 1 BAG IVPB SCH ×2 (04:11→15:51)
[2020-10-03 04:43] LABS: Anion Gap 12 mmol/L (10-20); BUN (Urea Nitrogen) 48 mg/dL (9.8-20.1); Calc. Creatinine Clearance 79 mL/min (70-130); Calcium 7.4 mg/dL (7.8-10.44); Carbon Dioxide 25 mmol/L (23-31); Chloride 108 mmol/L (98-107); Glucose 216 mg/dL (83-110); Potassium 4.2 mmol/L (3.5-5.1); Sodium 141 mmol/L (136-145)
[2020-10-03] MEDS: methylPREDNISolone Sod Succ 40 MG VIAL IVP SCH ×4 (04:44→23:12)
[2020-10-03] MEDS: Levothyroxine Sodium 125 MCG TAB PO SCH (04:44)
[2020-10-03 04:52] LABS: Vancomycin, Trough 23.3 ug/mL
[2020-10-03 05:01] LABS: Anisocytosis SLIGHT = 6-15 cells (100X) (0-5/hpf); Band 18 % (5-11); Eosinophils 2 % (0-10); Hemoglobin 9.5 g/dL (12.0-16.0); Lymphocytes 24 % (21-51); MDiff Complete? YES; Mean Corpuscular HGB CONC 32.8 g/dL (32.0-36.0); Mean Corpuscular Hemoglobin 31.5 pg (27.0-31.0); Mean Corpuscular Volume 95.9 fL (78.0-98.0); Mean Platelet Volume 11.4 fL (7.4-10.4); Monocytes 10 % (0-10); Myelocyte 11 % (0-0); Neutrophil 33 % (42-75); Platelet Count 55 thou/uL (130-400); Platelet Morphology Comment Appears Decreased; RBC Distribution Width 16.4 % (11.5-14.5); Reactive Lymphocytes 2 % (0-10); Red Blood Cell (RBC) Count 3.01 mill/uL (4.20-5.40); White Blood Cell (WBC) Count 29.5 thou/uL (4.8-10.8)
[2020-10-03] MEDS: Saccharomyces boulardii 250 MG CAP PO SCH (08:22)
[2020-10-03] MEDS: Aspirin Chewable 81 MG TAB PO SCH (08:22)
[2020-10-03] MEDS: Spironolactone 25 MG TAB PO SCH (08:22)
[2020-10-03] MEDS: Pantoprazole 40 MG GRANULES PACKET PER TUBE SCH (08:22)
[2020-10-03 12:22] LABS: Vancomycin, Random 19.6 ug/mL (See Comment)
[2020-10-03 15:54] LABS: INR-International Normal Ratio 1.2; PTT 24.5 sec (22.9-36.1); Prothrombin Time 15.9 sec (12.0-14.7)
[2020-10-03] MEDS: Vancomycin HCl 750 MG in Sodium Chloride 0.9% 250 ML 250 ML IVPB SCH (18:12)
[2020-10-03] MEDS: Atorvastatin Calcium 40 MG TAB PO SCH (20:29)
[2020-10-04] MEDS: Morphine 2 MG/ML VIAL SLOW IVP PRN ×5 (01:09→17:04)
[2020-10-04 03:33] LABS: Anion Gap 10 mmol/L (10-20); BUN (Urea Nitrogen) 51 mg/dL (9.8-20.1); Calc. Creatinine Clearance 88 mL/min (70-130); Calcium 7.3 mg/dL (7.8-10.44); Carbon Dioxide 28 mmol/L (23-31); Chloride 106 mmol/L (98-107); Glucose 182 mg/dL (83-110); Potassium 4.6 mmol/L (3.5-5.1); Sodium 139 mmol/L (136-145)
[2020-10-04] MEDS: MEROPENEM 1 GM/50 ML 1 GM in Premix Bag 1 BAG IVPB SCH ×3 (03:35→20:47)
[2020-10-04 03:48] LABS: Band 22 % (5-11); Hemoglobin 9.5 g/dL (12.0-16.0); Lymphocytes 14 % (21-51); MDiff Complete? YES; Mean Corpuscular HGB CONC 32.4 g/dL (32.0-36.0); Mean Corpuscular Hemoglobin 31.3 pg (27.0-31.0); Mean Corpuscular Volume 96.5 fL (78.0-98.0); Mean Platelet Volume 12.3 fL (7.4-10.4); Metamyelocyte 4 % (0-0); Monocytes 11 % (0-10); Myelocyte 15 % (0-0); Neutrophil 34 % (42-75); Platelet Count 54 thou/uL (130-400); Platelet Morphology Comment Appears Decreased; RBC Distribution Width 16.3 % (11.5-14.5); Red Blood Cell (RBC) Count 3.04 mill/uL (4.20-5.40)
[2020-10-04] MEDS: levETIRAcetam in NS 500 MG in Premix Bag 1 BAG IVPB SCH ×2 (04:04→16:19)
[2020-10-04] MEDS: Levothyroxine Sodium 125 MCG TAB PO SCH (05:32)
[2020-10-04] MEDS: methylPREDNISolone Sod Succ 40 MG VIAL IVP SCH ×4 (05:33→22:45)
[2020-10-04] MEDS: Pantoprazole 40 MG GRANULES PACKET PER TUBE SCH (09:05)
[2020-10-04] MEDS: Spironolactone 25 MG TAB PO SCH (09:05)
[2020-10-04] MEDS: Aspirin Chewable 81 MG TAB PO SCH (09:06)
[2020-10-04] MEDS: Saccharomyces boulardii 250 MG CAP PO SCH (09:06)
[2020-10-04] MEDS: Vancomycin HCl 750 MG in Sodium Chloride 0.9% 250 ML 250 ML IVPB SCH (18:30)
[2020-10-04] MEDS: Atorvastatin Calcium 40 MG TAB PO SCH (20:47)
[2020-10-05] MEDS: Morphine 2 MG/ML VIAL SLOW IVP PRN ×2 (00:21→06:38)
[2020-10-05 02:45] LABS: Anion Gap 11 mmol/L (10-20); BUN (Urea Nitrogen) 52 mg/dL (9.8-20.1); Calc. Creatinine Clearance 92 mL/min (70-130); Calcium 7.6 mg/dL (7.8-10.44); Carbon Dioxide 27 mmol/L (23-31); Chloride 108 mmol/L (98-107); Glucose 187 mg/dL (83-110); Potassium 5.2 mmol/L (3.5-5.1); Sodium 141 mmol/L (136-145)
[2020-10-05] MEDS: MEROPENEM 1 GM/50 ML 1 GM in Premix Bag 1 BAG IVPB SCH ×3 (02:46→20:26)
[2020-10-05] MEDS: levETIRAcetam in NS 500 MG in Premix Bag 1 BAG IVPB SCH ×2 (02:51→16:38)
[2020-10-05 03:15] LABS: Anisocytosis SLIGHT = 6-15 cells (100X) (0-5/hpf); Band 21 % (5-11); Eosinophils 1 % (0-10); Hemoglobin 9.6 g/dL (12.0-16.0); Lymphocytes 23 % (21-51); MDiff Complete? YES; Mean Corpuscular HGB CONC 33.3 g/dL (32.0-36.0); Mean Corpuscular Hemoglobin 32.3 pg (27.0-31.0); Mean Corpuscular Volume 96.8 fL (78.0-98.0); Mean Platelet Volume 9.3 fL (7.4-10.4); Metamyelocyte 1 % (0-0); Monocytes 15 % (0-10); Myelocyte 10 % (0-0); Neutrophil 27 % (42-75); Platelet Count 47 thou/uL (130-400); Platelet Morphology Comment Appears Decreased; RBC Distribution Width 16.1 % (11.5-14.5); Reactive Lymphocytes 2 % (0-10); Red Blood Cell (RBC) Count 2.98 mill/uL (4.20-5.40); White Blood Cell (WBC) Count 39.3 thou/uL (4.8-10.8)
[2020-10-05] MEDS: Levothyroxine Sodium 125 MCG TAB PO SCH (04:45)
[2020-10-05] MEDS: methylPREDNISolone Sod Succ 40 MG VIAL IVP SCH ×3 (04:45→17:38)
[2020-10-05] MEDS: Spironolactone 25 MG TAB PO SCH (07:52)
[2020-10-05] MEDS: Aspirin Chewable 81 MG TAB PO SCH (08:21)
[2020-10-05] MEDS: Saccharomyces boulardii 250 MG CAP PO SCH (08:21)
[2020-10-05] MEDS: Pantoprazole 40 MG GRANULES PACKET PER TUBE SCH (08:21)
[2020-10-05] MEDS ORDERED: Furosemide 40 MG/4 ML VIAL SLOW IVP SCH (09:30)
[2020-10-05] MEDS ORDERED: Senokot S 8.6-50 MG TAB PO PRN (10:23)
[2020-10-05] MEDS ORDERED: ALPRAZolam 1 MG TAB PO SCH ×2 (10:45→15:00)
[2020-10-05] MEDS ORDERED: ALPRAZolam 0.25 MG TAB PO SCH ×2 (14:45→21:00)
[2020-10-05] MEDS ORDERED: Buprenorphine [Butrans] 20 MCG Patch.Tdwk TD SCH (17:00)
[2020-10-05 17:34] LABS: Vancomycin, Trough 19.9 ug/mL
[2020-10-05] MEDS: Vancomycin HCl 750 MG in Sodium Chloride 0.9% 250 ML 250 ML IVPB SCH (17:40)
[2020-10-05] MEDS: Acetaminophen W/ Codeine 5 ML UDCUP PO SCH (20:25)
[2020-10-05] MEDS: Atorvastatin Calcium 40 MG TAB PO SCH (20:26)
[2020-10-05] MEDS: ALPRAZolam 1 MG TAB PO SCH (20:26)
[2020-10-05] MEDS: Glycopyrrolate 1 MG TAB PO SCH (20:26)
[2020-10-06] MEDS: methylPREDNISolone Sod Succ 40 MG VIAL IVP SCH ×4 (00:14→18:21)
[2020-10-06] MEDS: Morphine 2 MG/ML VIAL SLOW IVP PRN ×7 (01:37→19:43)
[2020-10-06 04:23] LABS: White Blood Cell (WBC) Count 55.8 thou/uL (4.8-10.8)
[2020-10-06 04:25] LABS: ALT (SGPT) 24 U/L (8-55); AST (SGOT) 28 U/L (5-34); Albumin 2.3 g/dL (3.4-4.8); Alkaline Phosphatase 76 U/L (40-110); Anion Gap 13 mmol/L (10-20); BUN (Urea Nitrogen) 63 mg/dL (9.8-20.1); Bilirubin, Total 0.5 mg/dL (0.2-1.2); Calc. Creatinine Clearance 72 mL/min (70-130); Calcium 7.1 mg/dL (7.8-10.44); Carbon Dioxide 24 mmol/L (23-31); Chloride 107 mmol/L (98-107); Globulin 1.9 g/dL (2.4-3.5); Glucose 204 mg/dL (83-110); Potassium 5.3 mmol/L (3.5-5.1); Protein, Total 4.2 g/dL (5.8-8.1); Sodium 139 mmol/L (136-145)
[2020-10-06 04:30] LABS: Band 17 % (5-11); Hemoglobin 7.5 g/dL (12.0-16.0); Lymphocytes 12 % (21-51); MDiff Complete? YES; Mean Corpuscular HGB CONC 31.6 g/dL (32.0-36.0); Mean Corpuscular Hemoglobin 30.4 pg (27.0-31.0); Mean Corpuscular Volume 96.1 fL (78.0-98.0); Mean Platelet Volume 11.1 fL (7.4-10.4); Metamyelocyte 5 % (0-0); Monocytes 10 % (0-10); Myelocyte 25 % (0-0); Neutrophil 31 % (42-75); Nucleated RBC 2 % (0); Platelet Count 51 thou/uL (130-400); Platelet Morphology Comment Appears Decreased; RBC Distribution Width 15.8 % (11.5-14.5); Red Blood Cell (RBC) Count 2.46 mill/uL (4.20-5.40)
[2020-10-06] MEDS: Levothyroxine Sodium 125 MCG TAB PO SCH (05:31)
[2020-10-06] MEDS: levETIRAcetam in NS 500 MG in Premix Bag 1 BAG IVPB SCH ×2 (05:31→16:07)
[2020-10-06] MEDS: MEROPENEM 1 GM/50 ML 1 GM in Premix Bag 1 BAG IVPB SCH ×3 (05:31→19:42)
[2020-10-06] MEDS: Aspirin Chewable 81 MG TAB PO SCH (08:49)
[2020-10-06] MEDS: Saccharomyces boulardii 250 MG CAP PO SCH (08:49)
[2020-10-06] MEDS: ALPRAZolam 0.25 MG TAB PO SCH ×2 (08:49→15:34)
[2020-10-06] MEDS: Glycopyrrolate 1 MG TAB PO SCH ×2 (08:49→19:44)
[2020-10-06] MEDS: Pantoprazole 40 MG GRANULES PACKET PER TUBE SCH (08:50)
[2020-10-06] MEDS: Acetaminophen W/ Codeine 5 ML UDCUP PO SCH ×2 (08:50→19:42)
[2020-10-06] MEDS: Polyethylene Glycol 3350 17 GM Packet PER TUBE SCH (08:51)
[2020-10-06] MEDS: Spironolactone 25 MG TAB PO SCH (09:17)
[2020-10-06] MEDS: Fluconazole In NaCl,Iso-Osm 100 MG, Admixture Fee 1 EACH in Premix Bag 1 BAG IVPB SCH (14:11)
[2020-10-06] MEDS: Acetaminophen 325 MG TAB PO PRN (15:33)
[2020-10-06] MEDS: Vancomycin HCl 750 MG in Sodium Chloride 0.9% 250 ML 250 ML IVPB SCH (18:15)
[2020-10-06] MEDS: ALPRAZolam 1 MG TAB PO SCH (19:44)
[2020-10-07] MEDS: methylPREDNISolone Sod Succ 40 MG VIAL IVP SCH ×5 (01:15→23:31)
[2020-10-07 04:10] LABS: ALT (SGPT) 18 U/L (8-55); AST (SGOT) 18 U/L (5-34); Alkaline Phosphatase 67 U/L (40-110); Anion Gap 11 mmol/L (10-20); BUN (Urea Nitrogen) 66 mg/dL (9.8-20.1); Bilirubin, Total 0.4 mg/dL (0.2-1.2); Calc. Creatinine Clearance 79 mL/min (70-130); Calcium 6.7 mg/dL (7.8-10.44); Carbon Dioxide 25 mmol/L (23-31); Chloride 108 mmol/L (98-107); Globulin 1.8 g/dL (2.4-3.5); Glucose 183 mg/dL (83-110); Potassium 5.2 mmol/L (3.5-5.1); Protein, Total 3.8 g/dL (5.8-8.1); Sodium 139 mmol/L (136-145)
[2020-10-07 04:55] LABS: Anisocytosis SLIGHT = 6-15 cells (100X) (0-5/hpf); Band 21 % (5-11); Eosinophils 1 % (0-10); Hemoglobin 5.7 g/dL (12.0-16.0); Lymphocytes 17 % (21-51); MDiff Complete? YES; Mean Corpuscular HGB CONC 30.2 g/dL (32.0-36.0); Mean Corpuscular Hemoglobin 30.1 pg (27.0-31.0); Mean Corpuscular Volume 99.7 fL (78.0-98.0); Mean Platelet Volume 11.7 fL (7.4-10.4); Monocytes 8 % (0-10); Myelocyte 13 % (0-0); Neutrophil 39 % (42-75); Platelet Count 34 thou/uL (130-400); Platelet Morphology Comment Appears Decreased; Reactive Lymphocytes 1 % (0-10); White Blood Cell (WBC) Count 42.8 thou/uL (4.8-10.8)
[2020-10-07] MEDS: MEROPENEM 1 GM/50 ML 1 GM in Premix Bag 1 BAG IVPB SCH ×3 (05:18→20:04)
[2020-10-07] MEDS: Levothyroxine Sodium 125 MCG TAB PO SCH (05:19)
[2020-10-07] MEDS: levETIRAcetam in NS 500 MG in Premix Bag 1 BAG IVPB SCH ×2 (05:23→15:46)
[2020-10-07] MEDS: Acetaminophen W/ Codeine 5 ML UDCUP PO SCH ×2 (08:10→20:04)
[2020-10-07] MEDS: Saccharomyces boulardii 250 MG CAP PO SCH (08:12)
[2020-10-07] MEDS: ALPRAZolam 0.25 MG TAB PO SCH ×2 (08:12→14:10)
[2020-10-07] MEDS: Spironolactone 25 MG TAB PO SCH (08:12)
[2020-10-07] MEDS: Glycopyrrolate 1 MG TAB PO SCH ×2 (08:12→20:05)
[2020-10-07] MEDS: Polyethylene Glycol 3350 17 GM Packet PER TUBE SCH (08:12)
[2020-10-07] MEDS: Aspirin Chewable 81 MG TAB PO SCH (08:12)
[2020-10-07] MEDS: Pantoprazole 40 MG GRANULES PACKET PER TUBE SCH (08:12)
[2020-10-07] MEDS: Morphine 2 MG/ML VIAL SLOW IVP PRN ×3 (09:52→17:23)
[2020-10-07] MEDS ORDERED: Fluconazole In NaCl,Iso-Osm 100 MG in Premix Bag 1 BAG IVPB SCH (13:00)
[2020-10-07] MEDS: Fluconazole In NaCl,Iso-Osm 100 MG, Admixture Fee 1 EACH in Premix Bag 1 BAG IVPB SCH (13:33)
[2020-10-07] MEDS: Vancomycin HCl 750 MG in Sodium Chloride 0.9% 250 ML 250 ML IVPB SCH (17:22)
[2020-10-07 18:27] LABS: Vancomycin, Trough 20.9 ug/mL
[2020-10-07] MEDS: Atorvastatin Calcium 40 MG TAB PO SCH (20:05)
[2020-10-07] MEDS: ALPRAZolam 1 MG TAB PO SCH (20:05)
[2020-10-08] MEDS: MEROPENEM 1 GM/50 ML 1 GM in Premix Bag 1 BAG IVPB SCH ×3 (03:55→20:41)
[2020-10-08] MEDS: levETIRAcetam in NS 500 MG in Premix Bag 1 BAG IVPB SCH ×2 (03:55→15:35)
[2020-10-08] MEDS: Levothyroxine Sodium 125 MCG TAB PO SCH (05:28)
[2020-10-08] MEDS: methylPREDNISolone Sod Succ 40 MG VIAL IVP SCH ×3 (05:28→17:51)
[2020-10-08 05:53] LABS: Platelet Count 28 thou/uL (130-400); White Blood Cell (WBC) Count 53.6 thou/uL (4.8-10.8)
[2020-10-08 06:10] LABS: Band 35 % (5-11); Eosinophils 1 % (0-10); Hemoglobin 7.3 g/dL (12.0-16.0); Lymphocytes 17 % (21-51); MDiff Complete? YES; Mean Corpuscular HGB CONC 31.9 g/dL (32.0-36.0); Mean Corpuscular Hemoglobin 29.9 pg (27.0-31.0); Mean Corpuscular Volume 93.7 fL (78.0-98.0); Mean Platelet Volume 12.3 fL (7.4-10.4); Metamyelocyte 6 % (0-0); Monocytes 7 % (0-10); Myelocyte 19 % (0-0); Neutrophil 15 % (42-75); Nucleated RBC 2 % (0); RBC Distribution Width 17.9 % (11.5-14.5); Red Blood Cell (RBC) Count 2.44 mill/uL (4.20-5.40)
[2020-10-08 06:14] LABS: ALT (SGPT) 20 U/L (8-55); AST (SGOT) 21 U/L (5-34); Albumin 2.1 g/dL (3.4-4.8); Alkaline Phosphatase 95 U/L (40-110); Anion Gap 9 mmol/L (10-20); BUN (Urea Nitrogen) 64 mg/dL (9.8-20.1); Bilirubin, Total 0.4 mg/dL (0.2-1.2); Calc. Creatinine Clearance 78 mL/min (70-130); Carbon Dioxide 26 mmol/L (23-31); Chloride 108 mmol/L (98-107); Globulin 1.9 g/dL (2.4-3.5); Glucose 216 mg/dL (83-110); Potassium 5.2 mmol/L (3.5-5.1); Sodium 138 mmol/L (136-145)
[2020-10-08] MEDS: ALPRAZolam 0.25 MG TAB PO SCH ×2 (08:35→15:35)
[2020-10-08] MEDS: Spironolactone 25 MG TAB PO SCH (08:35)
[2020-10-08] MEDS: Pantoprazole 40 MG GRANULES PACKET PER TUBE SCH (08:35)
[2020-10-08] MEDS: Glycopyrrolate 1 MG TAB PO SCH ×2 (08:35→20:41)
[2020-10-08] MEDS: Acetaminophen W/ Codeine 5 ML UDCUP PO SCH ×2 (08:36→20:41)
[2020-10-08] MEDS: Polyethylene Glycol 3350 17 GM Packet PER TUBE SCH (08:37)
[2020-10-08] MEDS: Saccharomyces boulardii 250 MG CAP PO SCH (08:38)
[2020-10-08] MEDS: Morphine 2 MG/ML VIAL SLOW IVP PRN ×3 (11:23→19:28)
[2020-10-08] MEDS: Fluconazole In NaCl,Iso-Osm 100 MG, Admixture Fee 1 EACH in Premix Bag 1 BAG IVPB SCH (12:17)
[2020-10-08] MEDS: Vancomycin HCl 750 MG in Sodium Chloride 0.9% 250 ML 250 ML IVPB SCH (17:52)
[2020-10-08] MEDS: ALPRAZolam 1 MG TAB PO SCH (20:41)
[2020-10-08] MEDS: Atorvastatin Calcium 40 MG TAB PO SCH (20:41)
[2020-10-09] MEDS: methylPREDNISolone Sod Succ 40 MG VIAL IVP SCH ×4 (00:16→18:13)
[2020-10-09] MEDS: Levothyroxine Sodium 125 MCG TAB PO SCH (05:02)
[2020-10-09] MEDS: levETIRAcetam in NS 500 MG in Premix Bag 1 BAG IVPB SCH ×2 (05:02→16:41)
[2020-10-09] MEDS: MEROPENEM 1 GM/50 ML 1 GM in Premix Bag 1 BAG IVPB SCH ×3 (05:02→20:49)
[2020-10-09 05:33] LABS: Platelet Count 25 thou/uL (130-400); White Blood Cell (WBC) Count 63.4 thou/uL (4.8-10.8)
[2020-10-09 05:35] LABS: Mean Corpuscular Volume 94.1 fL (78.0-98.0)
[2020-10-09 05:36] LABS: Anion Gap 13 mmol/L (10-20); BUN (Urea Nitrogen) 69 mg/dL (9.8-20.1); Calc. Creatinine Clearance 74 mL/min (70-130); Calcium 7.1 mg/dL (7.8-10.44); Carbon Dioxide 24 mmol/L (23-31); Chloride 107 mmol/L (98-107); Glucose 233 mg/dL (83-110); Potassium 5.6 mmol/L (3.5-5.1); Sodium 138 mmol/L (136-145)
[2020-10-09 05:42] LABS: Band 23 % (5-11); Blast 2 % (0-0); Hemoglobin 7.2 g/dL (12.0-16.0); Lymphocytes 8 % (21-51); MDiff Complete? YES; Mean Corpuscular HGB CONC 31.8 g/dL (32.0-36.0); Mean Corpuscular Hemoglobin 29.9 pg (27.0-31.0); Metamyelocyte 12 % (0-0); Microcytosis MODERATE=15-30 cells (100X) (0-5/hpf); Monocytes 10 % (0-10); Myelocyte 12 % (0-0); Neutrophil 29 % (42-75); Nucleated RBC 3 % (0); Platelet Morphology Comment Appears Decreased; Promyelocytes 3 % (0-0); RBC Distribution Width 18.2 % (11.5-14.5); Reactive Lymphocytes 1 % (0-10); Red Blood Cell (RBC) Count 2.42 mill/uL (4.20-5.40)
[2020-10-09] MEDS ORDERED: Dextrose 5% in Water 1,000 ML IV PRN (07:34)
[2020-10-09] MEDS ORDERED: HumaLOG 300 UNITS/3 ML VIAL SC PRN (07:34)
[2020-10-09] MEDS ORDERED: Dextrose 50% Abboject 50 ML SYRINGE SLOW IVP PRN (07:34)
[2020-10-09] MEDS: ALPRAZolam 0.25 MG TAB PO SCH ×2 (07:36→15:54)
[2020-10-09] MEDS: Morphine 2 MG/ML VIAL SLOW IVP PRN ×3 (07:36→15:54)
[2020-10-09] MEDS: HumaLOG 300 UNITS/3 ML VIAL SC PRN ×3 (08:10→18:22)
[2020-10-09] MEDS ORDERED: Furosemide 20 MG/2 ML VIAL SLOW IVP SCH (08:15)
[2020-10-09] MEDS: Acetaminophen W/ Codeine 5 ML UDCUP PO SCH ×2 (09:15→20:49)
[2020-10-09] MEDS: Insulin Glargine 8 UNITS in Pre-Filled Syringe 1 EACH SC SCH (09:16)
[2020-10-09] MEDS: Saccharomyces boulardii 250 MG CAP PO SCH (09:17)
[2020-10-09] MEDS: Pantoprazole 40 MG GRANULES PACKET PER TUBE SCH (09:17)
[2020-10-09] MEDS: Glycopyrrolate 1 MG TAB PO SCH ×2 (09:17→20:49)
[2020-10-09] MEDS: Acetaminophen 325 MG TAB PO PRN (12:20)
[2020-10-09] MEDS: Fluconazole In NaCl,Iso-Osm 100 MG, Admixture Fee 1 EACH in Premix Bag 1 BAG IVPB SCH (13:56)
[2020-10-09] MEDS: Lorazepam 2 MG/ML VIAL SLOW IVP PRN (16:41)
[2020-10-09] MEDS: Vancomycin HCl 750 MG in Sodium Chloride 0.9% 250 ML 250 ML IVPB SCH (18:13)
[2020-10-09] MEDS: Polyethylene Glycol 3350 17 GM Packet PER TUBE SCH (18:31)
[2020-10-09] MEDS: Atorvastatin Calcium 40 MG TAB PO SCH (20:49)
[2020-10-09] MEDS: ALPRAZolam 1 MG TAB PO SCH (20:49)
[2020-10-10] MEDS: HumaLOG 300 UNITS/3 ML VIAL SC PRN ×4 (00:19→17:50)
[2020-10-10] MEDS: methylPREDNISolone Sod Succ 40 MG VIAL IVP SCH ×4 (00:19→17:49)
[2020-10-10] MEDS: levETIRAcetam in NS 500 MG in Premix Bag 1 BAG IVPB SCH ×2 (03:41→16:01)
[2020-10-10] MEDS: MEROPENEM 1 GM/50 ML 1 GM in Premix Bag 1 BAG IVPB SCH (03:41)
[2020-10-10] MEDS: Morphine 2 MG/ML VIAL SLOW IVP PRN ×6 (04:18→17:49)
[2020-10-10 04:36] LABS: Hemoglobin 7.4 g/dL (12.0-16.0); Mean Corpuscular HGB CONC 32.2 g/dL (32.0-36.0); Mean Corpuscular Hemoglobin 30.5 pg (27.0-31.0); Mean Corpuscular Volume 94.6 fL (78.0-98.0); Mean Platelet Volume 11.2 fL (7.4-10.4); Platelet Count 28 thou/uL (130-400); RBC Distribution Width 17.6 % (11.5-14.5); Red Blood Cell (RBC) Count 2.43 mill/uL (4.20-5.40); White Blood Cell (WBC) Count 98.3 thou/uL (4.8-10.8)
[2020-10-10 04:47] LABS: Blast 12 % (0-0); Lymphocytes 16 % (21-51); MDiff Complete? YES; Metamyelocyte 1 % (0-0); Monocytes 3 % (0-10); Myelocyte 29 % (0-0); Neutrophil 39 % (42-75); Nucleated RBC 5 % (0); Platelet Morphology Comment Appears Decreased
[2020-10-10 04:55] LABS: Anion Gap 15 mmol/L (10-20); BUN (Urea Nitrogen) 77 mg/dL (9.8-20.1); Calc. Creatinine Clearance 70 mL/min (70-130); Calcium 7.2 mg/dL (7.8-10.44); Carbon Dioxide 24 mmol/L (23-31); Chloride 107 mmol/L (98-107); Glucose 212 mg/dL (83-110); Potassium 5.7 mmol/L (3.5-5.1); Sodium 140 mmol/L (136-145)
[2020-10-10] MEDS: Levothyroxine Sodium 125 MCG TAB PO SCH (05:24)
[2020-10-10 06:37] LABS: Actual Bicarbonate (HCO3a) 23.1 mEq/L (22-28); Base Excess (BEa) 0.2 mEq/L (-2.0 to +3.0); CO2 Tension 29.9 mmHg (35.0-45.0); Calcium, Ionized (arterial) 1.09 mmol/L (1.12-1.30); Carboxyhemoglobin (COHb) 0.2 gm% (0.0-3.0); Hemoglobin (Hb) 7.8 g/dL (12.0-16.0); Potassium - ABG Lab 5.63 mmol/L (3.70-5.30); pH, Arterial 7.51 (7.35-7.45)
[2020-10-10 06:38] LABS: ALV-art Gradient 111.525 mmHg (0-20); Puncture Site RRA
[2020-10-10] MEDS: Lorazepam 2 MG/ML VIAL SLOW IVP PRN ×2 (07:17→15:59)
[2020-10-10] MEDS: Acetaminophen W/ Codeine 5 ML UDCUP PO SCH (08:26)
[2020-10-10] MEDS: Glycopyrrolate 1 MG TAB PO SCH (08:27)
[2020-10-10] MEDS: Saccharomyces boulardii 250 MG CAP PO SCH (08:27)
[2020-10-10] MEDS: Insulin Glargine 8 UNITS in Pre-Filled Syringe 1 EACH SC SCH (08:27)
[2020-10-10] MEDS: ALPRAZolam 0.25 MG TAB PO SCH ×2 (08:27→15:10)
[2020-10-10] MEDS: Pantoprazole 40 MG GRANULES PACKET PER TUBE SCH (08:27)
[2020-10-10] MEDS: Polyethylene Glycol 3350 17 GM Packet PER TUBE SCH (08:27)
[2020-10-10] MEDS ORDERED: Furosemide 20 MG/2 ML VIAL SLOW IVP SCH (09:00)
[2020-10-10] MEDS ORDERED: Morphine 2 MG/ML VIAL SLOW IVP SCH (12:00)
[2020-10-10] MEDS: Fluconazole In NaCl,Iso-Osm 100 MG, Admixture Fee 1 EACH in Premix Bag 1 BAG IVPB SCH (13:40)
[2020-10-10 14:27] VITALS: BMI 30.1
[2020-10-10 14:56] VITALS: BP 130/70
[2020-10-10 16:22] VITALS: TEMP 99.7
[2020-10-10] MEDS ORDERED: Vancomycin HCl 500 MG in Sodium Chloride 0.9% 100 ML IVPB SCH (18:00)
== END 2020-10-10 18:36 | disposition expired | DRG 4 ==
LOC: ERS 17:04 → 2NO 18:49 → CCU 09-22 16:11
PROVIDERS: ADMIT Internal Medicine; ATTEND Internal Medicine
PROC: 5A12012 Performance of Cardiac Output, Single, Manual (ICD-10-PCS; principal; 2020-09-22)
PROC: 3E033XZ Introduction of Vasopressor into Peripheral Vein, Percutaneous Approach (ICD-10-PCS; 2020-09-22)
PROC: 30233N1 Transfusion of Nonautologous Red Blood Cells into Peripheral Vein, Percutaneous Approach (ICD-10-PCS; 2020-09-22)
PROC: 0BH17EZ Insertion of Endotracheal Airway into Trachea, Via Natural or Artificial Opening (ICD-10-PCS; 2020-09-22)
PROC: 5A1945Z Respiratory Ventilation, 24-96 Consecutive Hours (ICD-10-PCS; 2020-09-22)
PROC: 5A1955Z Respiratory Ventilation, Greater than 96 Consecutive Hours (ICD-10-PCS; 2020-09-26)
PROC: 0BH17EZ Insertion of Endotracheal Airway into Trachea, Via Natural or Artificial Opening (ICD-10-PCS; 2020-09-26)
PROC: 0B9J8ZZ Drainage of Left Lower Lung Lobe, Via Natural or Artificial Opening Endoscopic (ICD-10-PCS; 2020-09-26)
PROC: 0B9F8ZZ Drainage of Right Lower Lung Lobe, Via Natural or Artificial Opening Endoscopic (ICD-10-PCS; 2020-09-26)
PROC: 5A09357 Assistance with Respiratory Ventilation, Less than 24 Consecutive Hours, Continuous Positive Airway Pressure (ICD-10-PCS; 2020-09-26)
PROC: 0B113F4 Bypass Trachea to Cutaneous with Tracheostomy Device, Percutaneous Approach (ICD-10-PCS; 2020-09-30)
PROC: 05HM33Z Insertion of Infusion Device into Right Internal Jugular Vein, Percutaneous Approach (ICD-10-PCS; 2020-09-30)
DX: A41.81 Sepsis due to Enterococcus (principal); S22.20XA Unspecified fracture of sternum, initial encounter for closed fracture; I21.A1 Myocardial infarction type 2; G92 Toxic encephalopathy; R65.21 Severe sepsis with septic shock; J96.01 Acute respiratory failure with hypoxia; J96.02 Acute respiratory failure with hypercapnia; I63.9 Cerebral infarction, unspecified; N30.00 Acute cystitis without hematuria; N17.9 Acute kidney failure, unspecified; I42.9 Cardiomyopathy, unspecified; Z16.29 Resistance to other single specified antibiotic; I50.32 Chronic diastolic (congestive) heart failure; J95.01 Hemorrhage from tracheostomy stoma; D61.818 Other pancytopenia; C95.00 Acute leukemia of unspecified cell type not having achieved remission; F33.9 Major depressive disorder, recurrent, unspecified; I69.354 Hemiplegia and hemiparesis following cerebral infarction affecting left non-dominant side; G40.89 Other seizures; M32.9 Systemic lupus erythematosus, unspecified; I49.5 Sick sinus syndrome; I11.0 Hypertensive heart disease with heart failure; E87.8 Other disorders of electrolyte and fluid balance, not elsewhere classified; Z51.5 Encounter for palliative care; Z66 Do not resuscitate; Z20.822 Contact with and (suspected) exposure to COVID-19; M79.7 Fibromyalgia; M19.90 Unspecified osteoarthritis, unspecified site; M81.0 Age-related osteoporosis without current pathological fracture; K58.9 Irritable bowel syndrome, unspecified; F41.9 Anxiety disorder, unspecified; I25.10 Atherosclerotic heart disease of native coronary artery without angina pectoris; I48.0 Paroxysmal atrial fibrillation; N20.0 Calculus of kidney; G89.4 Chronic pain syndrome; E66.9 Obesity, unspecified; K21.9 Gastro-esophageal reflux disease without esophagitis; E78.00 Pure hypercholesterolemia, unspecified; J44.9 Chronic obstructive pulmonary disease, unspecified; E89.0 Postprocedural hypothyroidism; N26.1 Atrophy of kidney (terminal); B95.2 Enterococcus as the cause of diseases classified elsewhere; B95.7 Other staphylococcus as the cause of diseases classified elsewhere; Z96.612 Presence of left artificial shoulder joint; E87.5 Hyperkalemia; I46.2 Cardiac arrest due to underlying cardiac condition; R73.9 Hyperglycemia, unspecified; Z95.5 Presence of coronary angioplasty implant and graft; Z87.442 Personal history of urinary calculi; Z85.850 Personal history of malignant neoplasm of thyroid; Z90.49 Acquired absence of other specified parts of digestive tract; Z90.710 Acquired absence of both cervix and uterus; Z88.1 Allergy status to other antibiotic agents; Z88.0 Allergy status to penicillin; Z88.2 Allergy status to sulfonamides; Z88.8 Allergy status to other drugs, medicaments and biological substances; Z79.899 Other long term (current) drug therapy; Z68.30 Body mass index [BMI] 30.0-30.9, adult; Z92.3 Personal history of irradiation; Z91.02 Food additives allergy status; Z98.84 Bariatric surgery status; Z87.440 Personal history of urinary (tract) infections; Z79.890 Hormone replacement therapy; Y84.8 Other medical procedures as the cause of abnormal reaction of the patient, or of later complication, without mention of misadventure at the time of the procedure; D46.Z Other myelodysplastic syndromes; D50.9 Iron deficiency anemia, unspecified
CPT/HCPCS: 0240U; 36415; 36416; 36430; 36600; 51701; 70450; 71045; 71275; 74018; 74176; 80048; 80053; 80061; 80162; 80202; 81003; 81015; 82248; 82274; 82550; 82553; 82607; 82728; 82746; 82805; 83540; 83550; 83605; 83615; 83690; 83735; 83880; 84100; 84145; 84146; 84443; 84484; 84550; 85007; 85014; 85018; 85025; 85027; 85046; 85060; 85610; 85730; 86850; 86870; 86900; 86901; 86922; 87040; 87070; 87077; 87086; 87149; 87186; 88184; 92950; 93005; 93010; 93306; 94002; 94003; 94760; 95712; 95819; 95957; 96365; 96367; J0171; J0360; J0461; J0692; J1100; J1450; J1815; J1940; J1953; J1956; J2060; J2185; J2270; J2405; J2704; J2920; J3010; J3370; J3475; J3480; J3490; J7042; J7050; P9016; Q9967; S0020; S0028